=== PATIENT | male | born 1950 | race Caucasian/White ===

== ENCOUNTER 2017-10-26 18:12 | Inpatient (IN) | payer MEDICARE, OTHER ==
[2017-10-26] MEDS ORDERED: NALOXONE 0.4 MG/ML 1 ML VIAL IV PRN (21:22)
[2017-10-26] MEDS ORDERED: MELATONIN 3 MG TABLET PO PRN (21:24)
[2017-10-26] MEDS ORDERED: VANCOMYCIN IV PER PHARMACY 1 EACH MISC MISCELLANE PRN (21:27)
[2017-10-26 21:29] LABS: Glucose,Whole Blood 149 mg/dL (75-99)
[2017-10-26] MEDS ORDERED: VANCOMYCIN 1,500 MG in SODIUM CHLORIDE 0.9% 250 ML IVPB SCH (21:30)
--- NOTE | 2017-10-26 21:52 | XR ---
EXAMINATION TYPE: XR chest 1V portable DATE OF EXAM: 10/26/2017 COMPARISON: 07/02/2016 HISTORY: COPD short of breath TECHNIQUE: Single frontal view of the chest is obtained. FINDINGS: Heart is enlarged. There is no heart failure. Costophrenic angles are clear. IMPRESSION: Cardiomegaly. No heart failure. There is probably no change compared to old exam.
[2017-10-26] MEDS: PANTOPRAZOLE 40 MG/10 ML VIAL IV SCH (23:06)
[2017-10-26] MEDS: PIPERACILLIN-TAZOBACTAM 3.375 GM in DEXTROSE/WATER 1 50ML.BAG IVPB SCH (23:06)
[2017-10-26] MEDS: SODIUM CHLORIDE 0.9% 1,000 ML IV SCH (23:06)
[2017-10-26 23:31] LABS: Anisocytosis Slight; Basophils % (A) 0 %; Eosinophils % (A) 0 %; HCT 32.4 % (39.0-53.0); HGB 9.2 gm/dL (13.0-17.5); Hypochromasia Marked; Lymphocytes # (A) 0.7 k/uL (1.0-4.8); Lymphocytes % (A) 7 %; MCH 27.9 pg (25.0-35.0); MCHC 28.3 g/dL (31.0-37.0); MCV 98.3 fL (80.0-100.0); Macrocytosis Slight; Mean Platelet Volume 8.2; Monocytes # (A) 0.5 k/uL (0-1.0); Monocytes % (A) 5 %; Neutrophils # (A) 8.4 k/uL (1.3-7.7); Neutrophils % (A) 85 %; Platelet Count 255 k/uL (150-450); RBC 3.29 m/uL (4.30-5.90); RDW 18.6 % (11.5-15.5); WBC 9.8 k/uL (3.8-10.6)
[2017-10-26 23:40] LABS: Albumin 4.1 g/dL (3.5-5.0); Calcium 9.6 mg/dL (8.4-10.2); Magnesium 1.9 mg/dL (1.6-2.3); Potassium 4.8 mmol/L (3.5-5.1); Total Bilirubin 0.6 mg/dL (0.2-1.3); Total Protein 7.6 g/dL (6.3-8.2)
[2017-10-26 23:44] LABS: INR 1.1 (<1.2)
[2017-10-26 23:47] LABS: Amorphous Sediment,Urine Rare /hpf; Appearance,Urine Clear (Clear); Bacteria,Urine Rare /hpf; Bilirubin,Urine Negative (Negative); Blood,Urine Trace (Negative); Color,Urine Yellow; Glucose,Urine (UA) Negative (Negative); Hyaline Casts,Urine 3 /lpf (0-2); Ketones,Urine Negative (Negative); Leukocyte Esterase,Urine Small (Negative); Mucus,Urine Rare /hpf; Nitrite,Urine Negative (Negative); PH, Urine 5.5 (5.0-8.0); Protein,Urine 1+ (Negative); RBC,Urine 8 /hpf (0-5); Specific Gravity,Urine 1.013 (1.001-1.035); Squamous Epithelial Cell,Urine <1 /hpf (0-4); Urobilinogen,Urine <2.0 mg/dL (<2.0); WBC,Urine 10 /hpf (0-5)
--- NOTE | 2017-10-26 23:59 | HP ---
HISTORY AND PHYSICAL DATE OF SERVICE: 10/26/2017. CHIEF COMPLAINT: Fever. HISTORY OF PRESENT ILLNESS: This 66-year-old gentleman with a past history of diabetes, hypertension, history of DJD, history of multiple sclerosis, history of stage III multiple decubitus, history of MRSA, depression, [facility], was admitted to [facility] with complaints of fever. The patient was noted to have UTI. The patient also had suspected aspiration pneumonia. Patient was running fever. The patient was subsequently transferred to [facility] for further evaluation and treatment. There is no history any headache, loss conscious, seizures. Detailed history was not taken because of MS and other associated neurological issues. History mostly taken per my discussion with staff at this time, and review of chart. PAST MEDICAL: Diabetes, hypertension, history of DJD, history of hypothyroidism, possible restless leg disease, hypoxia, history of anxiety and depression. MEDICATIONS: 1. Metformin 1000 mg p.o. b.i.d. 2. Benadryl 50 mg. 3. Kenalog. 4. MiraLAX 17 g. 5. Mycostatin. 6. Multivitamins. 7. Synthroid 200 mcg daily. 8. Lactobacillus. 9. DuoNeb q.i.d. and p.r.n. 10.Lantus 30 units subcu at bedtime. 11.Humalog b.i.d. 12.Neurontin 300 mg t.i.d. 13.Lasix 40 mg daily. 14.Lexapro 20 mg at bedtime. 15.Vasotec 5 mg daily. 16.Cranberry 30 mL b.i.d. 17.Symbicort 4.5 two puffs b.i.d. 18.Lioresal 10 mg p.o. t.i.d. 19.Aspirin 81 mg. 20.Vitamin C 500 mg. 21.Augmentin b.i.d. 22.Zyloprim 300 mg p.o. daily. ALLERGIES: Solu-Medrol. FAMILY HISTORY: History of diabetes mellitus in the family. SOCIAL HISTORY: Previous history of smoking. No history of alcohol. REVIEW OF SYSTEMS: Could not be taken because of above mentioned neurological issues. PHYSICAL EXAM: Patient is conscious, oriented x1. Pulse 91, blood pressure 184/70, respiration 17, temperature 101.5, pulse ox 94% on 11 L high-flow nasal cannula. HEENT: Conjunctivae normal. Oral mucosa moist. NECK: No jugular venous distention. No bruits. CARDIOVASCULAR: S1, S2. No S3. LUNGS: Breath sounds diminished at the bases. Bilateral scattered rhonchi and crackles. ABDOMEN: Soft, obese, nontender. No mass palpable. LEGS: Bilateral leg edema. NERVOUS SYSTEM: Higher functions as mentioned. Diffusely weak and wasted and contractures also present. SKIN: Diffuse rash also present. JOINTS: No active deformity. LYMPHATICS: No lymph nodes palpable in the neck, axillae, groin. SKIN: Sacral decubitus stage 2 to 3 also present. LAB: Investigations are pending at this time. ASSESSMENT: 1. Fever with possibly urinary tract infection with sepsis related to indwelling Rothman catheter present on admission. 2. Possible aspiration pneumonia. 3. Possible chronic obstructive pulmonary disease with sepsis. 4. Multiple sclerosis with contractures and gait dysfunction. 5. Decubitus ulcer stage 2 to 3 sacral, present on admission, pressure ulcers. 6. Diabetes type 2. 7. Hypertension. 8. Degenerative joint disease. 9. Hypothyroidism. 10.History of neurogenic bladder. 11.History of MRSA. 12.History of bowel resection. 13.History of full colostomy. 14.History of anxiety, depression. RECOMMENDATIONS AND DISCUSSION: This 66-year-old gentleman who presented with multiple complex medical issues, we will monitor the patient closely, continue the current management. Initiate broad- spectrum IV antibiotics. Initiate Zosyn and Vanco. Obtain cultures. Infectious disease evaluation. Bronchodilators. Home medications. DVT prophylaxis. Wound care. Prognosis guarded because of multiple complex medical issues. Discussed with staff. See orders for details. MMODL / IJN: [id number] / MTDD
[2017-10-27 05:00] VITALS: BMI 38.5
[2017-10-27] MEDS: FORMOTEROL FUMARATE 20 MCG/2 ML NEBU INHALATION SCH ×2 (07:08→20:27)
[2017-10-27] MEDS: BUDESONIDE 1 MG/2 ML NEBU INHALATION SCH ×2 (07:08→20:26)
[2017-10-27] MEDS: IPRATROPIUM-ALBUTEROL 3 ML NEB INHALATION SCH ×4 (07:16→20:27)
[2017-10-27 07:42] LABS: Glucose,Whole Blood 160 mg/dL (75-99)
[2017-10-27] MEDS ORDERED: IPRATROPIUM 0.5 MG/2.5 ML NEBU INHALATION SCH (08:00)
[2017-10-27] MEDS: HEPARIN SODIUM,PORCINE 5,000 UNIT/ML 1 ML VIAL SQ SCH ×2 (08:17→20:03)
[2017-10-27] MEDS: PIPERACILLIN-TAZOBACTAM 3.375 GM in DEXTROSE/WATER 1 50ML.BAG IVPB SCH ×2 (08:17→16:20)
[2017-10-27] MEDS: PANTOPRAZOLE 40 MG/10 ML VIAL IV SCH (08:17)
[2017-10-27 08:33] LABS: Anisocytosis Slight; Basophils # (A) 0.1 k/uL (0-0.2); Basophils % (A) 0 %; Eosinophils % (A) 0 %; HCT 33.8 % (39.0-53.0); HGB 9.9 gm/dL (13.0-17.5); Hypochromasia Marked; Lymphocytes # (A) 0.9 k/uL (1.0-4.8); Lymphocytes % (A) 6 %; MCH 28.4 pg (25.0-35.0); MCHC 29.1 g/dL (31.0-37.0); MCV 97.4 fL (80.0-100.0); Macrocytosis Slight; Mean Platelet Volume 8.1; Monocytes # (A) 0.6 k/uL (0-1.0); Monocytes % (A) 4 %; Neutrophils # (A) 12.9 k/uL (1.3-7.7); Neutrophils % (A) 87 %; Platelet Count 312 k/uL (150-450); Poikilocytosis Slight; RBC 3.47 m/uL (4.30-5.90); RDW 18.3 % (11.5-15.5); WBC 14.8 k/uL (3.8-10.6)
--- NOTE | 2017-10-27 09:13 | P.CONS ---
History of Present Illness - Reason for Consult Consult date: 10/27/17 - History of Present Illness This is a 66-year-old male who resides at [facility], history of MS with chronic Ivory catheter and colostomy. On October 25, patient was found with vomitus all over him and pulse ox was in the 70s at the F. Patient does have chronic hypoxic respiratory failure on O2 at 3 L nasal cannula. Patient was then taken to [facility] where he was evaluated and found to have temperature of 102 with leukocytosis of 15. Patient was started on Zosyn and then changed to cefepime, clindamycin and vancomycin. Chest x-ray initially showed clear of consolidation but repeat on October 26 showed suspicious small effusion and pulmonary venous congestion. Urinalysis was cloudy, blood 3+, protein 2+, nitrate positive, leukoesterase 2+ , WBC 5200, RBCs 20-30 and bacteria 4+. BUN was 58 and creatinine 2.5 with baseline creatinine of 1.2-1.5. Abdominal x-ray was normal and showed possible left renal calculi. Troponins were 0.045, 0.055 and 0.071. Patient was diagnosed with aspiration pneumonia, UTI, acute kidney injury and possible non- ST elevated myocardial infarction. Patient was then transferred to [facility]. He has had a temperature maximum 102.3 white count is improved at 9.8 as well as renal function has improved. Repeat chest x-ray shows cardiomegaly. No heart failure. No change from previous. Patient is currently on Zosyn and vancomycin. Blood culture urine culture are status received. Patient also presented with unstageable pressure injury to the bilateral buttocks. Wound cultures have been obtained. Noted the patient has not been tested for influenza. Patient has difficulty communicating due to MS and is a poor historian. He currently denies any shortness of breath but he is on high flow nasal cannula and 11 L pulse oxing 93%. Review of Systems ROS unobtainable: due to mental status All systems: negative Constitutional: Reports chills, Reports fever Eyes: denies blurred vision, denies pain Ears, nose, mouth and throat: Denies headache, Denies sore throat Cardiovascular: Denies chest pain, Denies decreased exercise tolerance, Denies dyspnea on exertion, Denies shortness of breath Respiratory: Denies cough Gastrointestinal: Denies abdominal pain, Denies diarrhea, Denies nausea, Denies vomiting Musculoskeletal: Denies myalgias Integumentary: Denies pruritus, Denies rash Neurological: Denies numbness, Denies weakness Psychiatric: Denies anxiety, Denies depression Endocrine: Denies fatigue, Denies weight change Past Medical History Past Medical History: Diabetes Mellitus, Hypertension, Musculoskeletal Disorder , Osteoarthritis (OA), Thyroid Disorder Additional Past Medical History / Comment(s): ms, healing stage 3 to sacrum, neurogenic bladder/chronic ivory, neuropathy History of Any Multi-Drug Resistant Organisms: MRSA Year Discovered:: unknown MDRO Source:: sacral wound Past Surgical History: Bowel Resection, Orthopedic Surgery Additional Past Surgical History / Comment(s): knee surgery 1966, colostomy Past Anesthesia/Blood Transfusion Reactions: No Reported Reaction Past Psychological History: Anxiety, Depression Smoking Status: Former smoker Past Alcohol Use History: Rare Past Drug Use History: None Reported - Past Family History Mother Family Medical History: Cancer Additional Family Medical History / Comment(s): female cancer Father Family Medical History: Diabetes Mellitus Medications and Allergies Home Medications Medication Instructions Recorded Confirmed Type Baclofen [Lioresal] 20 mg PO TID@0500,1300,2100 08/24/14 10/26/17 History Escitalopram [Lexapro] 20 mg PO HS@199908/24/14 10/26/17 History Gabapentin [Neurontin] 600 mg PO TID@0500,1300,2100 08/24/14 10/26/17 History Levothyroxine Sodium [Synthroid] 200 mcg PO DAILY@0500 08/24/14 10/26/17 History metFORMIN HCL 1,000 mg PO BID@0900,2100 08/24/14 10/26/17 History INSULIN LISPRO (HumaLOG) [humaLOG] 20 units SQ BID@1200,1700 06/24/16 10/26/17 History Acetaminophen [Tylenol] 650 mg PO Q4H PRN 10/26/17 10/26/17 History Albuterol Nebulized [Ventolin 2.5 mg INHALATION RT-Q4H PRN 10/26/17 10/26/17 History Nebulized] Bumetanide [Bumex] 1 mg PO BID@0500,1200 10/26/17 10/26/17 History Cranberry-Vitamin C-Inulin 30 ml PO BID@0700,1700 10/26/17 10/26/17 History Escitalopram [Lexapro] 10 mg PO HS@2000 10/26/17 10/26/17 History Furosemide [Lasix] 80 mg PO BID@0500,1300 10/26/17 10/26/17 History Ibuprofen 600 mg PO TID 10/26/17 10/26/17 History Insulin Glargine [Lantus] 30 unit SQ BID@0900,2100 10/26/17 10/26/17 History Levothyroxine Sodium [Synthroid] 50 mcg PO DAILY@0500 10/26/17 10/26/17 History Piperacillin-Tazobactam [Zosyn] 3.375 gm IVPB QID 10/26/17 10/26/17 History Polyethylene Glycol 3350 [Miralax] 17 gm PO DAILY PRN 10/26/17 10/26/17 History Potassium Chloride ER [K-Dur 20] 20 meq PO BID@1200,2100 10/26/17 10/26/17 History Allergies Allergy/AdvReac Type Severity Reaction Status Date / Time methylprednisolone sodium Allergy Rash/Hives Verified 07/02/16 08:17 succinate [From Solu-Medrol] Physical Exam Vitals: Vital Signs Temp Pulse Pulse Resp BP BP Pulse Ox 10/27/17 07:29 96 10/27/17 07:28 93 L 10/27/17 07:23 100 10/27/17 07:13 100 10/27/17 07:00 102.3 F H 104 H 18 191/84 200/91 92 L 10/26/17 23:00 99.9 F H 17 10/26/17 20:51 101.5 F H 91 17 184/73 95 Intake and Output 10/26/17 10/27/17 10/27/17 22:59 06:59 14:59 Intake Total 0 210 Balance 0 210 Intake: Intake, IV Titration 210 Amount Piperacillin-Tazobactam 3 50 .375 gm In Dextrose/Water 1 50ml.bag @ 12.5 mls/hr IVPB Q8HR [facility]T Rx#: [id number] Sodium Chloride 0.9% 1, 160 000 ml @ 50 mls/hr IV . Q20H [facility]T Rx#:[id number] Oral 0 0 Other: Voiding Method Indwelling Catheter Weight 122 kg 122 kg Gen: This is a morbidly obese 66-year-old male. He is sitting up in bed and appears to be comfortable. He does not appear to be in acute respiratory distress. HEENT: Head is atraumatic, normocephalic. Pupils equal, round. Sclerae is anicteric. Patient is edentulous. NECK: Thick and short. No JVD. No lymphadenopathy. No thyromegaly. LUNGS: Diminished to the bilateral bases. No wheezes or rhonchi. No intercostal retractions. HEART: Irregular rate and rhythm. No murmur. ABDOMEN: Soft. Bowel sounds are present. No masses. No tenderness. Colostomy to the left lower quadrant with beefy center. Formed stool and gas present in colostomy bag. SKIN: Patient has redness to the bilateral forearms to his elbows with no open weeping or wounds. There is redness from the bilateral buttocks including the sacrum with open skin tears. EXTREMITIES: 1+ pedal edema. No calf tenderness. Dorsalis pedis palpable bilaterally. NEUROLOGICAL: Patient is awake, alert and oriented x2 and poor historian. Extreme weakness to the bilateral upper and lower extremities. Results Results: Laboratory Results WBC 14.8 k/uL (3.8-10.6) H 10/27/17 07:58 RBC 3.47 m/uL (4.30-5.90) L 10/27/17 07:58 Hgb 9.9 gm/dL (13.0-17.5) L 10/27/17 07:58 Hct 33.8 % (39.0-53.0) L 10/27/17 07:58 MCV 97.4 fL (80.0-100.0) 10/27/17 07:58 MCH 28.4 pg (25.0-35.0) 10/27/17 07:58 MCHC 29.1 g/dL (31.0-37.0) L 10/27/17 07:58 RDW 18.3 % (11.5-15.5) H 10/27/17 07:58 Plt Count 312 k/uL (150-450) 10/27/17 07:58 Neutrophils % 87 % 10/27/17 07:58 Lymphocytes % 6 % 10/27/17 07:58 Monocytes % 4 % 10/27/17 07:58 Eosinophils % 0 % 10/27/17 07:58 Basophils % 0 % 10/27/17 07:58 Neutrophils # 12.9 k/uL (1.3-7.7) H 10/27/17 07:58 Lymphocytes # 0.9 k/uL (1.0-4.8) L 10/27/17 07:58 Monocytes # 0.6 k/uL (0-1.0) 10/27/17 07:58 Eosinophils # 0.0 k/uL (0-0.7) 10/27/17 07:58 Basophils # 0.1 k/uL (0-0.2) 10/27/17 07:58 Hypochromasia Marked 10/27/17 07:58 Poikilocytosis Slight 10/27/17 07:58 Anisocytosis Slight 10/27/17 07:58 Macrocytosis Slight 10/27/17 07:58 PT 11.0 sec (9.0-12.0) 10/26/17 23:10 INR 1.1 (<1.2) 10/26/17 23:10 Sodium 154 mmol/L (137-145) H 10/26/17 23:10 Potassium 4.8 mmol/L (3.5-5.1) 10/26/17 23:10 Chloride 113 mmol/L (98-107) H 10/26/17 23:10 Carbon Dioxide 27 mmol/L (22-30) 10/26/17 23:10 Anion Gap 14 mmol/L 10/26/17 23:10 BUN 55 mg/dL (9-20) H 10/26/17 23:10 Creatinine 1.60 mg/dL (0.66-1.25) H 10/26/17 23:10 Est GFR (MDRD) Af Amer 52 (>60 ml/min/1.73 sqM) 10/26/17 23:10 Est GFR (MDRD) Non-Af 43 (>60 ml/min/1.73 sqM) 10/26/17 23:10 Glucose 152 mg/dL (74-99) H 10/26/17 23:10 POC Glucose (mg/dL) 160 mg/dL (75-99) H 10/27/17 07:34 POC Glu Licensed Insurance Agent ID Pallavi Jiménez 10/27/17 07:34 Calcium 9.6 mg/dL (8.4-10.2) 10/26/17 23:10 Magnesium 1.9 mg/dL (1.6-2.3) 10/26/17 23:10 Total Bilirubin 0.6 mg/dL (0.2-1.3) 10/26/17 23:10 AST 44 U/L (17-59) 10/26/17 23:10 ALT 21 U/L (21-72) 10/26/17 23:10 Alkaline Phosphatase 72 U/L (38-126) 10/26/17 23:10 Total Protein 7.6 g/dL (6.3-8.2) 10/26/17 23:10 Albumin 4.1 g/dL (3.5-5.0) 10/26/17 23:10 Urine Color Yellow 10/26/17 23:20 Urine Appearance Clear (Clear) 10/26/17 23:20 Urine pH 5.5 (5.0-8.0) 10/26/17 23:20 Ur Specific [place] 1.013 (1.001-1.035) 10/26/17 23:20 Urine Protein 1+ (Negative) H 10/26/17 23:20 Urine Glucose (UA) Negative (Negative) 10/26/17 23:20 Urine Ketones Negative (Negative) 10/26/17 23:20 Urine Blood Trace (Negative) H 10/26/17 23:20 Urine Nitrite Negative (Negative) 10/26/17 23:20 Urine Bilirubin Negative (Negative) 10/26/17 23:20 Urine Urobilinogen <2.0 mg/dL (<2.0) 10/26/17 23:20 Ur Leukocyte Esterase Small (Negative) H 10/26/17 23:20 Urine RBC 8 /hpf (0-5) H 10/26/17 23:20 Urine WBC 10 /hpf (0-5) H 10/26/17 23:20 Urine WBC Clumps Rare /hpf (None) H 10/26/17 23:20 Ur Squamous Epith Cells <1 /hpf (0-4) 10/26/17 23:20 Amorphous Sediment Rare /hpf (None) H 10/26/17 23:20 Urine Bacteria Rare /hpf (None) H 02/12/18 23:20 Hyaline Casts 3 /lpf (0-2) H 10/26/17 23:20 Urine Mucus Rare /hpf (None) H 10/26/17 23:20 CBC & Chem 7: 10/28/17 08:28 10/28/17 08:28 Labs: Abnormal Lab Results - Last 24 Hours (Table) 10/26/17 10/26/17 10/26/17 Range/Units 21:26 23:10 23:10 WBC (3.8-10.6) k/uL RBC 3.29 L (4.30-5.90) m/uL Hgb 9.2 L (13.0-17.5) gm/dL Hct 32.4 L (39.0-53.0) % MCHC 28.3 L (31.0-37.0) g/dL RDW 18.6 H (11.5-15.5) % Neutrophils # 8.4 H (1.3-7.7) k/uL Lymphocytes # 0.7 L (1.0-4.8) k/uL Sodium 154 H (137-145) mmol/L Chloride 113 H (98-107) mmol/L BUN 55 H (9-20) mg/dL Creatinine 1.60 H (0.66-1.25) mg/dL Glucose 152 H (74-99) mg/dL POC Glucose (mg/dL) 149 H (75-99) mg/dL Urine Protein (Negative) Urine Blood (Negative) Ur Leukocyte Esterase (Negative) Urine RBC (0-5) /hpf Urine WBC (0-5) /hpf Urine WBC Clumps (None) /hpf Amorphous Sediment (None) /hpf Urine Bacteria (None) /hpf Hyaline Casts (0-2) /lpf Urine Mucus (None) /hpf 10/26/17 10/27/17 10/27/17 Range/Units 23:20 07:34 07:58 WBC 14.8 H (3.8-10.6) k/uL RBC 3.47 L (4.30-5.90) m/uL Hgb 9.9 L (13.0-17.5) gm/dL Hct 33.8 L (39.0-53.0) % MCHC 29.1 L (31.0-37.0) g/dL RDW 18.3 H (11.5-15.5) % Neutrophils # 12.9 H (1.3-7.7) k/uL Lymphocytes # 0.9 L (1.0-4.8) k/uL Sodium (137-145) mmol/L Chloride (98-107) mmol/L BUN (9-20) mg/dL Creatinine (0.66-1.25) mg/dL Glucose (74-99) mg/dL POC Glucose (mg/dL) 160 H (75-99) mg/dL Urine Protein 1+ H (Negative) Urine Blood Trace H (Negative) Ur Leukocyte Esterase Small H (Negative) Urine RBC 8 H (0-5) /hpf Urine WBC 10 H (0-5) /hpf Urine WBC Clumps Rare H (None) /hpf Amorphous Sediment Rare H (None) /hpf Urine Bacteria Rare H (None) /hpf Hyaline Casts 3 H (0-2) /lpf Urine Mucus Rare H (None) /hpf Assessment and Plan Plan: This is a 66-year-old male patient presents to hospital with signs of sepsis most likely secondary to catheter associated urinary tract infection. Influenza testing has been requested. Patient does not have previous urine cultures here. We will ask for urine culture from [facility] to be obtained. Patient does have a blood culture and urine culture that is in process at our facility. Patient is currently on Zosyn and vancomycin which will be altered to meropenem and vancomycin. Local wound care will be addressed for the bilateral buttocks unstageable decubitus ulcers. Continue supportive care and treatment of acute kidney injury. Further recommendations as patient progresses. The above dictated assessment and findings were discussed with Dr. Bermudez. The impression and plan of care have been directed as dictated. Brit Huizar nurse practitioner acting as scribe for Dr. Bermudez.
[2017-10-27] MEDS ORDERED: ACETAMINOPHEN TAB 325 MG TAB PO PRN (09:50)
[2017-10-27] MEDS ORDERED: IPRATROPIUM-ALBUTEROL 3 ML NEB INHALATION PRN (09:54)
[2017-10-27 10:34] LABS: Calcium 10.1 mg/dL (8.4-10.2); Potassium 3.9 mmol/L (3.5-5.1)
[2017-10-27 10:40] LABS: Vancomycin,Random 10.5 ug/mL
[2017-10-27 11:18] LABS: Glucose,Whole Blood 160 mg/dL (75-99)
[2017-10-27] MEDS ORDERED: VANCOMYCIN 2,250 MG in SODIUM CHLORIDE 0.9% 500 ML IVPB SCH (12:00)
[2017-10-27] MEDS: INSULIN DETEMIR 100 UNIT/ML 10 ML VIAL SQ SCH (12:29)
--- NOTE | 2017-10-27 13:02 | P.CNPUL ---
History of Present Illness Consult date: 10/27/17 Requesting physician: Jose Flores Reason for consult: hypoxemia, abnormal CXR/CT Chief complaint: Fever, hypoxic respiratory failure, abnormal chest x-ray History of present illness: Master is a 66-year-old white male patient with a past medical history of multiple sclerosis, diabetes mellitus, hypertension, healing stage III sacrum ulcer, neurogenic bladder with chronic indwelling catheter, hypothyroidism, osteoarthritis, who resides at the [facility], was brought to the [facility] on 10/26/2017 with complaints of fever, suspected aspiration pneumonia, and hypoxemia a pulse ox in the 70s at the [facility]. Patient normally wears oxygen at 3 L per nasal cannula. At the [facility] patient was febrile with a temperature of 10 2F and evidence of leukocytosis, with a WBC of 14.8. Patient is a very poor historian, most of the history is obtained from the chart. He can only provide one or 2 word answers. His lab work showed hypernatremia, with serum sodium of 158, potassium is 3.9, chloride is 116, BUN is 52, and creatinine is 1.60. Urinalysis showed 1+ protein, trace blood, small amount of leukocyte esterase, wbc clumps, mucus and bacteria. Influenza screen was negative. Chest x-ray from 10/26/2017 showed cardiomegaly, no heart failure. Blood, urine, and aerobic wound culture of the sacral wound were ordered. Patient was started on vancomycin, Zosyn, nebulized treatments and was admitted for further management. During our evaluation, patient awake, alert, able to follow simple command, and give 1 or 2 word answers. He denies any acute distress, no signs of acute respiratory difficulty. He has a very weak cough. FiO2 is currently at 11 L per high flow nasal cannula, with a pulse ox at 92%. Is having intermittent high fevers, his T-max last 24 hours is 102.3F. Review of Systems All systems: negative Constitutional: Denies chills, Denies fever Eyes: denies blurred vision, denies pain Ears, nose, mouth and throat: Denies headache, Denies sore throat Cardiovascular: Denies chest pain, Denies shortness of breath Respiratory: Denies cough Gastrointestinal: Denies abdominal pain, Denies diarrhea, Denies nausea, Denies vomiting Musculoskeletal: Denies myalgias Integumentary: Denies pruritus, Denies rash Neurological: Denies numbness, Denies weakness Psychiatric: Denies anxiety, Denies depression Endocrine: Denies fatigue, Denies weight change Past Medical History Past Medical History: Diabetes Mellitus, Hypertension, Musculoskeletal Disorder , Osteoarthritis (OA), Thyroid Disorder Additional Past Medical History / Comment(s): ms, healing stage 3 to sacrum, neurogenic bladder/chronic ivory, neuropathy History of Any Multi-Drug Resistant Organisms: MRSA Date of last positivie culture/infection: unknown MDRO Source:: sacral wound Past Surgical History: Bowel Resection, Orthopedic Surgery Additional Past Surgical History / Comment(s): knee surgery 1966, colostomy Past Anesthesia/Blood Transfusion Reactions: No Reported Reaction Past Psychological History: Anxiety, Depression Smoking Status: Former smoker Past Alcohol Use History: Rare Past Drug Use History: None Reported - Past Family History Mother Family Medical History: Cancer Additional Family Medical History / Comment(s): female cancer Father Family Medical History: Diabetes Mellitus Medications and Allergies Home Medications Medication Instructions Recorded Confirmed Type Baclofen [Lioresal] 20 mg PO TID@0500,1300,2100 08/24/14 10/26/17 History Escitalopram [Lexapro] 20 mg PO HS@199908/24/14 10/26/17 History Gabapentin [Neurontin] 600 mg PO TID@0500,1300,2100 08/24/14 10/26/17 History Levothyroxine Sodium [Synthroid] 200 mcg PO DAILY@0500 08/24/14 10/26/17 History metFORMIN HCL 1,000 mg PO BID@0900,2100 08/24/14 10/26/17 History INSULIN LISPRO (HumaLOG) [humaLOG] 20 units SQ BID@1200,1700 06/24/16 10/26/17 History Acetaminophen [Tylenol] 650 mg PO Q4H PRN 10/26/17 10/26/17 History Albuterol Nebulized [Ventolin 2.5 mg INHALATION RT-Q4H PRN 10/26/17 10/26/17 History Nebulized] Bumetanide [Bumex] 1 mg PO BID@0500,1200 10/26/17 10/26/17 History Cranberry-Vitamin C-Inulin 30 ml PO BID@0700,1700 10/26/17 10/26/17 History Escitalopram [Lexapro] 10 mg PO HS@199910/26/17 10/26/17 History Furosemide [Lasix] 80 mg PO BID@0500,1300 10/26/17 10/26/17 History Ibuprofen 600 mg PO TID 10/26/17 10/26/17 History Insulin Glargine [Lantus] 30 unit SQ BID@0900,2100 10/26/17 10/26/17 History Levothyroxine Sodium [Synthroid] 50 mcg PO DAILY@0500 10/26/17 10/26/17 History Piperacillin-Tazobactam [Zosyn] 3.375 gm IVPB QID 10/26/17 10/26/17 History Polyethylene Glycol 3350 [Miralax] 17 gm PO DAILY PRN 10/26/17 10/26/17 History Potassium Chloride ER [K-Dur 20] 20 meq PO BID@1200,2100 10/26/17 10/26/17 History Allergies Allergy/AdvReac Type Severity Reaction Status Date / Time methylprednisolone sodium Allergy Rash/Hives Verified 07/02/16 08:17 succinate [From Solu-Medrol] Physical Exam Vitals: Vital Signs Temp Pulse Pulse Resp BP BP Pulse Ox 10/27/17 11:40 96 10/27/17 11:31 96 10/27/17 08:00 104 H 18 10/27/17 07:29 96 10/27/17 07:28 93 L 10/27/17 07:23 100 10/27/17 07:13 100 10/27/17 07:00 102.3 F H 104 H 18 191/84 200/91 92 L 10/26/17 23:00 99.9 F H 17 10/26/17 20:51 101.5 F H 91 17 184/73 95 Intake and Output 10/26/17 10/27/17 10/27/17 22:59 06:59 14:59 Intake Total 0 210 Balance 0 210 Intake: Intake, IV Titration 210 Amount Piperacillin-Tazobactam 3 50 .375 gm In Dextrose/Water 1 50ml.bag @ 12.5 mls/hr IVPB Q8HR [facility] Rx#: [id number] Sodium Chloride 0.9% 1, 160 000 ml @ 50 mls/hr IV . Q20H [facility] Rx#:[id number] Oral 0 0 Other: Voiding Method Indwelling Catheter Indwelling Catheter Weight 122 kg 122 kg GENERAL EXAM: Alert, 66-year-old white male, comfortable in no apparent distress. Patient to follow simple commands, give 1 or 2 word answers, but is not able to give any extensive verbal answers. Currently on 11 L per high flow nasal cannula HEAD: Normocephalic/atraumatic. EYES: Normal reaction of pupils, equal size. Conjunctiva pink, sclera white. NOSE: Clear with pink turbinates. THROAT: No erythema or exudates. NECK: No masses, no JVD, no thyroid enlargement, no adenopathy. CHEST: No chest wall deformity. Symmetrical expansion. LUNGS: Diminished air entry bilaterally, no rhonchi or wheezes noted. He has a very weak nonproductive cough CVS: Regular rate and rhythm, normal S1 and S2, no gallops, no murmurs, no rubs ABDOMEN: Soft, nontender. No hepatosplenomegaly, normal bowel sounds, no guarding or rigidity. EXTREMITIES: No clubbing, no edema, no cyanosis, 2+ pulses and upper and lower extremities. MUSCULOSKELETAL: Muscle strength and tone normal. SPINE: No scoliosis or deformity SKIN: No rashes CENTRAL NERVOUS SYSTEM: Alert and oriented -3. No focal deficits, tone is normal in all 4 extremities. PSYCHIATRIC: Alert and oriented -3. Appropriate affect. Intact judgment and insight. Results - Laboratory Findings CBC and BMP: 10/27/17 07:58 10/27/17 07:58 PT/INR, D-dimer PT 11.0 sec (9.0-12.0) 10/26/17 23:10 INR 1.1 (<1.2) 10/26/17 23:10 Abnormal lab findings: Abnormal Labs 10/26/17 10/26/17 10/26/17 21:26 23:10 23:10 WBC RBC 3.29 L Hgb 9.2 L Hct 32.4 L MCHC 28.3 L RDW 18.6 H Neutrophils # 8.4 H Lymphocytes # 0.7 L Sodium 154 H Chloride 113 H BUN 55 H Creatinine 1.60 H Glucose 152 H POC Glucose (mg/dL) 149 H Troponin I Urine Protein Urine Blood Ur Leukocyte Esterase Urine RBC Urine WBC Urine WBC Clumps Amorphous Sediment Urine Bacteria Hyaline Casts Urine Mucus 10/26/17 10/27/1718 23:20 07:34 07:58 WBC 14.8 H RBC 3.47 L Hgb 9.9 L Hct 33.8 L MCHC 29.1 L RDW 18.3 H Neutrophils # 12.9 H Lymphocytes # 0.9 L Sodium Chloride BUN Creatinine Glucose POC Glucose (mg/dL) 160 H Troponin I Urine Protein 1+ H Urine Blood Trace H Ur Leukocyte Esterase Small H Urine RBC 8 H Urine WBC 10 H Urine WBC Clumps Rare H Amorphous Sediment Rare H Urine Bacteria Rare H Hyaline Casts 3 H Urine Mucus Rare H 10/27/17 10/27/17 10/27/17 07:58 07:58 11:13 WBC RBC Hgb Hct MCHC RDW Neutrophils # Lymphocytes # Sodium 158 H Chloride 116 H BUN 52 H Creatinine 1.60 H Glucose 167 H POC Glucose (mg/dL) 160 H Troponin I 0.137 H* Urine Protein Urine Blood Ur Leukocyte Esterase Urine RBC Urine WBC Urine WBC Clumps Amorphous Sediment Urine Bacteria Hyaline Casts Urine Mucus - Diagnostic Findings Chest x-ray: report reviewed Assessment and Plan Plan: Assessment: #1. Acute sepsis, secondary to acute urinary tract infection. Urinalysis was positive for leukocyte esterase, urine bacteria, mucus, urine wbc clumps. Chest x-ray from 10/26/2017 showed cardiomegaly, no heart failure, and no clear-cut evidence of pneumonia #2. Leukocytosis, fever, acute kidney injury secondary to the above, #3. Acute on chronic hypoxic respiratory failure of unclear etiology, patient' s O2 sat was in the 70s that [facility]. Patient has reportedly vomited at the [facility], was suspected to have aspiration pneumonia, however the chest x-ray from 2017 did not show any clear-cut evidence of pneumonia. Patient does have features of hypoventilation syndrome, obstructive sleep apnea, obesity #4. Acute kidney injury secondary to sepsis related to urinary tract infection #5. Hypernatremia, related to a water deficit, possibly related to poor oral intake #6. History of multiple sclerosis #7. Sacral decubitus ulcer, stage III, patient has a diversion colostomy #8. Poor functional performance, patient is a resident of [facility] #9. Diabetes mellitus #10. Neurogenic bladder with chronic indwelling catheter #11. History of MRSA in the sacral wound Plan: Patient's chest x-ray was reviewed, and did not show any evidence of pneumonia. Patient is still having intermittent episodes of fever, will await final results of the blood, urine and sacral wound cultures. Currently on Zosyn and vancomycin, ID service is following. Continue with nebulized treatments, continue with Pulmicort and Perforomist. Speech therapy evaluation was ordered by the attending physician. Patient remains nothing by mouth. Patient is probably a high risk for aspiration. Obtain aspiration precautions, head of the bed up 30 at all times. Further recommendations to follow depending on patient's clinical course I performed a history & physical examination of the patient and discussed their management with my nurse practitioner, Corine Mosquera. I reviewed the nurse practitioner's note and agree with the documented findings and plan of care. Lung sounds are diminished. The findings and the impression was discussed with the patient. I attest to the documentation by the nurse practitioner. Time with Patient: Greater than 30
[2017-10-27] MEDS: GABAPENTIN 300 MG CAP PO SCH ×2 (13:34→20:03)
[2017-10-27] MEDS: INSULIN ASPART 100 UNIT/ML 1 ML 10 ML VIAL SQ SCH ×3 (13:40→21:32)
[2017-10-27 17:06] LABS: Glucose,Whole Blood 162 mg/dL (75-99)
[2017-10-27 17:24] LABS: Hemoglobin A1C 6.1 % (4.0-6.0)
[2017-10-27] MEDS: SODIUM CHLORIDE 0.9% 1,000 ML IV SCH (18:05)
[2017-10-27] MEDS ORDERED: ESCITALOPRAM 20 MG TAB PO SCH (20:00)
[2017-10-27] MEDS: ESCITALOPRAM 10 MG TAB PO SCH (20:02)
[2017-10-27] MEDS: ACETAMINOPHEN IV (For NPO) 1,000 MG in EMPTY BAG 1 BAG IVPB PRN (20:02)
[2017-10-27] MEDS ORDERED: INSULIN DETEMIR 100 UNIT/ML 10 ML VIAL SQ SCH (21:00)
--- NOTE | 2017-10-27 22:40 | P.CON ---
Consult Note - . Consult date: 10/27/17 Assessment/Plan:: This is a 66-year-old male who resides at [facility], history of MS with chronic Rothman catheter and colostomy. On October 25, patient was found with vomitus all over him and pulse ox was in the 70s at the [facility]. Patient does have chronic hypoxic respiratory failure on O2 at 3 L nasal cannula. Patient was then taken to [facility] where he was evaluated and found to have temperature of 102 with leukocytosis of 15. Patient was started on Zosyn and then changed to cefepime, clindamycin and vancomycin. Chest x-ray initially showed clear of consolidation but repeat on October 26 showed suspicious small effusion and pulmonary venous congestion. Urinalysis was cloudy, blood 3+, protein 2+, nitrate positive, leukoesterase 2+ , WBC 5200, RBCs 20-30 and bacteria 4+. BUN was 58 and creatinine 2.5 with baseline creatinine of 1.2-1.5. Abdominal x-ray was normal and showed possible left renal calculi. Troponins were 0.045, 0.055 and 0.071. Patient was diagnosed with aspiration pneumonia, UTI, acute kidney injury and possible non- ST elevated myocardial infarction. Patient was then transferred to [facility]. He has had a temperature maximum 102.3 white count is improved at 9.8 as well as renal function has improved. Repeat chest x-ray shows cardiomegaly. No heart failure. No change from previous. Patient is currently on Zosyn and vancomycin. Blood culture urine culture are status received. Patient also presented with unstageable pressure injury to the bilateral buttocks. Wound cultures have been obtained. Noted the patient has not been tested for influenza. Patient has difficulty communicating due to MS and is a poor historian. He currently denies any shortness of breath but he is on high flow nasal cannula and 11 L pulse oximetry 93%. Please see the consult note is dictated by nurse practitioner Brit Gaye. 66-year-old male is a very poor historian. As noted he is on 11 L of nasal cannula and has somewhat of a poor mentation. Stated influenza has come back as negative. It is likely the patient has aspiration pneumonia and with his care and [facility]CF alter Zosyn to meropenem with concerns to more resistant pathogens and vancomycin also continues for now. Continue supportive care and respiratory treatments. Zinc will be utilized to the pressure ulcerations of the buttocks noted at admission and please see the nursing documentation. I agree with evaluation, assessment and plan his defibrillator nurse practitioner Mrs. Brit Huizar.
[2017-10-28 00:24] LABS: Glucose,Whole Blood 141 mg/dL (75-99)
[2017-10-28] MEDS: MEROPENEM 1 GM in SODIUM CHLORIDE 0.9% 100 ML IVPB SCH ×4 (00:36→23:18)
[2017-10-28 02:20] LABS: Anisocytosis Slight; Basophils # (A) 0.1 k/uL (0-0.2); Basophils % (A) 1 %; Eosinophils # (A) 0.1 k/uL (0-0.7); Eosinophils % (A) 1 %; HCT 33.1 % (39.0-53.0); HGB 9.5 gm/dL (13.0-17.5); Hypochromasia Marked; Lymphocytes # (A) 1.1 k/uL (1.0-4.8); Lymphocytes % (A) 7 %; MCH 28.3 pg (25.0-35.0); MCHC 28.8 g/dL (31.0-37.0); MCV 98.1 fL (80.0-100.0); Macrocytosis Slight; Mean Platelet Volume 8.2; Monocytes # (A) 0.8 k/uL (0-1.0); Monocytes % (A) 5 %; Neutrophils # (A) 13.6 k/uL (1.3-7.7); Neutrophils % (A) 86 %; Platelet Count 270 k/uL (150-450); Poikilocytosis Slight; RBC 3.38 m/uL (4.30-5.90); RDW 18.5 % (11.5-15.5); WBC 15.9 k/uL (3.8-10.6)
[2017-10-28] MEDS: ACETAMINOPHEN IV (For NPO) 1,000 MG in EMPTY BAG 1 BAG IVPB PRN ×2 (02:57→09:53)
[2017-10-28] MEDS ORDERED: LEVOTHYROXINE 50 MCG TAB PO SCH (05:00)
[2017-10-28] MEDS ORDERED: KETOROLAC 30 MG/ML 1 ML VIAL IVP ONE ×2 (05:00→22:56)
[2017-10-28] MEDS: GABAPENTIN 300 MG CAP PO SCH ×3 (05:02→21:57)
[2017-10-28] MEDS: LEVOTHYROXINE 125 MCG TAB PO SCH (05:02)
[2017-10-28] MEDS: VANCOMYCIN 2,250 MG in SODIUM CHLORIDE 0.9% 500 ML IVPB SCH (06:29)
[2017-10-28 08:13] LABS: Glucose,Whole Blood 145 mg/dL (75-99)
[2017-10-28] MEDS: IPRATROPIUM-ALBUTEROL 3 ML NEB INHALATION SCH ×4 (08:18→20:54)
[2017-10-28] MEDS: FORMOTEROL FUMARATE 20 MCG/2 ML NEBU INHALATION SCH ×2 (08:18→20:53)
[2017-10-28] MEDS: BUDESONIDE 1 MG/2 ML NEBU INHALATION SCH ×2 (08:18→20:53)
[2017-10-28] MEDS: INSULIN ASPART 100 UNIT/ML 1 ML 10 ML VIAL SQ SCH ×4 (08:21→22:49)
[2017-10-28] MEDS: HEPARIN SODIUM,PORCINE 5,000 UNIT/ML 1 ML VIAL SQ SCH ×2 (08:42→21:57)
[2017-10-28] MEDS: PANTOPRAZOLE 40 MG/10 ML VIAL IV SCH (08:42)
[2017-10-28] MEDS: INSULIN DETEMIR 100 UNIT/ML 10 ML VIAL SQ SCH (08:42)
[2017-10-28 09:40] LABS: Anisocytosis Slight; Basophils # (A) 0.1 k/uL (0-0.2); Basophils % (A) 1 %; Eosinophils # (A) 0.1 k/uL (0-0.7); Eosinophils % (A) 0 %; HCT 33.4 % (39.0-53.0); HGB 9.7 gm/dL (13.0-17.5); Hypochromasia Marked; Lymphocytes # (A) 1.5 k/uL (1.0-4.8); Lymphocytes % (A) 8 %; MCH 28.5 pg (25.0-35.0); MCHC 29.1 g/dL (31.0-37.0); MCV 97.9 fL (80.0-100.0); Macrocytosis Slight; Mean Platelet Volume 8.6; Monocytes # (A) 0.9 k/uL (0-1.0); Monocytes % (A) 5 %; Neutrophils # (A) 16.4 k/uL (1.3-7.7); Neutrophils % (A) 86 %; Platelet Count 284 k/uL (150-450); Poikilocytosis Slight; RBC 3.41 m/uL (4.30-5.90); RDW 18.4 % (11.5-15.5); WBC 19.2 k/uL (3.8-10.6)
[2017-10-28 09:46] LABS: Potassium 3.9 mmol/L (3.5-5.1)
[2017-10-28] MEDS ORDERED: DEXTROSE 5% IN WATER 1,000 ML IV ONE (10:37)
--- NOTE | 2017-10-28 10:52 | P.PN ---
Subjective Progress Note Date: 10/28/17 Principal diagnosis: Acute sepsis, secondary to acute UTI. Acute on chronic hypoxic respiratory failure related to hypoventilation syndrome, possible atelectasis, obstructive sleep apnea and obesity Master is a 66-year-old white male patient with a past medical history of multiple sclerosis, diabetes mellitus, hypertension, healing stage III sacrum ulcer, neurogenic bladder with chronic indwelling catheter, hypothyroidism, osteoarthritis, who resides at the [facility], was brought to the [facility] on 10/26/2017 with complaints of fever, suspected aspiration pneumonia, and hypoxemia a pulse ox in the 70s at the [facility]. Patient normally wears oxygen at 3 L per nasal cannula. At the [facility] patient was febrile with a temperature of 10 2F and evidence of leukocytosis, with a WBC of 14.8. Patient is a very poor historian, most of the history is obtained from the chart. He can only provide one or 2 word answers. His lab work showed hypernatremia, with serum sodium of 158, potassium is 3.9, chloride is 116, BUN is 52, and creatinine is 1.60. Urinalysis showed 1+ protein, trace blood, small amount of leukocyte esterase, wbc clumps, mucus and bacteria. Influenza screen was negative. Chest x-ray from 10/26/2017 showed cardiomegaly, no heart failure. Blood, urine, and aerobic wound culture of the sacral wound were ordered. Patient was started on vancomycin, Zosyn, nebulized treatments and was admitted for further management. During our evaluation, patient awake, alert, able to follow simple command, and give 1 or 2 word answers. He denies any acute distress, no signs of acute respiratory difficulty. He has a very weak cough. FiO2 is currently at 11 L per high flow nasal cannula, with a pulse ox at 92%. Is having intermittent high fevers, his T-max last 24 hours is 102.3F. On 10/28/2017 patient is seen again on the medical surgical floor. He is a bit more responsive today, more alert. He denies any distress. He continues to have ongoing persistent fevers, T-max in the last 24 hours was 101.9F. ID service is following. Sacral wound culture, blood culture and urine cultures are pending. Patient is on a combination of vancomycin and meropenem per ID service recommendation. Lung sounds are positive for coarse rhonchi, patient has a very weak cough. He is awaiting a speech evaluation. However the nursing staff reports that he has been observed coughing and choking on oral medications and water. Patient has been nothing by mouth while awaiting the official speech evaluation. Today's labs were reviewed, his WBC is trending up , is up to 19.5 from 15.9 on yesterday's labs. Hemoglobin is stable at 9.7, his serum sodium is up to 162. His current IV fluids is 0.9 at 50 ML per hour. We will switch the IV fluids to D5W at 100 ML per hour. Objective - Vital Signs Vital signs: Vital Signs Temp 101.2 F H 10/28/17 07:00 Pulse 92 10/28/17 08:57 Resp 20 10/28/17 07:00 BP 143/74 10/28/17 07:00 Pulse Ox 94 L 10/28/17 07:00 Intake & Output 10/27/17 10/28/17 10/28/17 18:59 06:59 18:59 Intake Total 600 Output Total 1000 900 Balance -400 -900 Weight 122 kg Intake: Intake, IV Titration 600 Amount Piperacillin-Tazobactam 3 100 .375 gm In Dextrose/Water 1 50ml.bag @ 12.5 mls/hr IVPB Q8HR [facility] Rx#: [id number] Vancomycin 2,250 mg In 500 Sodium Chloride 0.9% 500 ml @ 167 mls/hr IVPB DAILY@0600 [facility] Rx#: [id number] Output: Urine 1000 900 Urethral (Rothman) 1000 Other: Voiding Method Indwelling Catheter Indwelling Catheter - Exam GENERAL EXAM: Alert, 66-year-old white male, comfortable in no apparent distress. Patient to follow simple commands, give 1 or 2 word answers, but is not able to give any extensive verbal answers. Currently on 15 L per high flow nasal cannula HEAD: Normocephalic/atraumatic. EYES: Normal reaction of pupils, equal size. Conjunctiva pink, sclera white. NOSE: Clear with pink turbinates. THROAT: No erythema or exudates. NECK: No masses, no JVD, no thyroid enlargement, no adenopathy. CHEST: No chest wall deformity. Symmetrical expansion. LUNGS: Diminished air entry bilaterally, no rhonchi or wheezes noted. He has a very weak nonproductive cough CVS: Regular rate and rhythm, normal S1 and S2, no gallops, no murmurs, no rubs ABDOMEN: Soft, nontender. No hepatosplenomegaly, normal bowel sounds, no guarding or rigidity. EXTREMITIES: No clubbing, no edema, no cyanosis, 2+ pulses and upper and lower extremities. MUSCULOSKELETAL: Muscle strength and tone normal. SPINE: No scoliosis or deformity SKIN: No rashes CENTRAL NERVOUS SYSTEM: Alert and oriented -1. PSYCHIATRIC: Alert and oriented -1. Appropriate affect. - Labs CBC & Chem 7: 10/28/17 08:28 10/28/17 08:28 Labs: Abnormal Lab Results - Last 24 Hours (Table) 10/27/17 10/27/17 10/27/17 Range/Units 07:58 07:58 07:58 WBC (3.8-10.6) k/uL RBC (4.30-5.90) m/uL Hgb (13.0-17.5) gm/dL Hct (39.0-53.0) % MCHC (31.0-37.0) g/dL RDW (11.5-15.5) % Neutrophils # (1.3-7.7) k/uL Sodium 158 H (137-145) mmol/L Chloride 116 H (98-107) mmol/L BUN 52 H (9-20) mg/dL Creatinine 1.60 H (0.66-1.25) mg/dL Glucose 167 H (74-99) mg/dL POC Glucose (mg/dL) (75-99) mg/dL Hemoglobin A1c 6.1 H (4.0-6.0) % Troponin I 0.137 H* (0.000-0.034) ng/mL 10/27/17 10/27/17 10/27/17 Range/Units 11:13 16:58 19:08 WBC (3.8-10.6) k/uL RBC (4.30-5.90) m/uL Hgb (13.0-17.5) gm/dL Hct (39.0-53.0) % MCHC (31.0-37.0) g/dL RDW (11.5-15.5) % Neutrophils # (1.3-7.7) k/uL Sodium (137-145) mmol/L Chloride (98-107) mmol/L BUN (9-20) mg/dL Creatinine (0.66-1.25) mg/dL Glucose (74-99) mg/dL POC Glucose (mg/dL) 160 H 162 H (75-99) mg/dL Hemoglobin A1c (4.0-6.0) % Troponin I 0.229 H* (0.000-0.034) ng/mL 10/28/17 10/28/17 10/28/17 Range/Units 00:22 01:46 01:46 WBC 15.9 H (3.8-10.6) k/uL RBC 3.38 L (4.30-5.90) m/uL Hgb 9.5 L (13.0-17.5) gm/dL Hct 33.1 L (39.0-53.0) % MCHC 28.8 L (31.0-37.0) g/dL RDW 18.5 H (11.5-15.5) % Neutrophils # 13.6 H (1.3-7.7) k/uL Sodium (137-145) mmol/L Chloride (98-107) mmol/L BUN (9-20) mg/dL Creatinine (0.66-1.25) mg/dL Glucose (74-99) mg/dL POC Glucose (mg/dL) 141 H (75-99) mg/dL Hemoglobin A1c (4.0-6.0) % Troponin I 0.248 H* (0.000-0.034) ng/mL 10/28/17 10/28/17 10/28/17 Range/Units 07:46 08:28 08:28 WBC 19.2 H (3.8-10.6) k/uL RBC 3.41 L (4.30-5.90) m/uL Hgb 9.7 L (13.0-17.5) gm/dL Hct 33.4 L (39.0-53.0) % MCHC 29.1 L (31.0-37.0) g/dL RDW 18.4 H (11.5-15.5) % Neutrophils # 16.4 H (1.3-7.7) k/uL Sodium 162 H* (137-145) mmol/L Chloride 119 H (98-107) mmol/L BUN 40 H (9-20) mg/dL Creatinine 1.63 H (0.66-1.25) mg/dL Glucose 140 H (74-99) mg/dL POC Glucose (mg/dL) 145 H (75-99) mg/dL Hemoglobin A1c (4.0-6.0) % Troponin I (0.000-0.034) ng/mL Microbiology - Last 24 Hours (Table) 10/26/17 23:10 Blood Culture - Preliminary Blood No Growth after 24 hours 10/26/17 13:00 Gram Stain - Preliminary Buttock Wound Culture - Preliminary 10/26/17 23:20 Urine Culture - Preliminary Urine,Catheterized Assessment and Plan Plan: Assessment: #1. Acute sepsis, secondary to acute urinary tract infection. Urinalysis was positive for leukocyte esterase, urine bacteria, mucus, urine wbc clumps. Chest x-ray from 10/26/2017 showed cardiomegaly, no heart failure, and no clear-cut evidence of pneumonia #2. Leukocytosis, fever, acute kidney injury secondary to the above, #3. Acute on chronic hypoxic respiratory failure of unclear etiology, patient' s O2 sat was in the 70s that [facility]. Patient has reportedly vomited at the [facility], was suspected to have aspiration pneumonia, however the chest x-ray from 2017 did not show any clear-cut evidence of pneumonia. Patient does have features of hypoventilation syndrome, obstructive sleep apnea, obesity #4. Acute kidney injury secondary to sepsis related to urinary tract infection #5. Hypernatremia, related to a free water deficit, related to poor oral intake , febrile illness, status NPO #6. History of multiple sclerosis #7. Sacral decubitus ulcer, stage III, patient has a diversion colostomy #8. Poor functional performance, patient is a resident of [facility] #9. Diabetes mellitus #10. Neurogenic bladder with chronic indwelling catheter #11. History of MRSA in the sacral wound Plan: Continue antibiotics per ID service recommendation, currently on meropenem and vancomycin. Sacral wound culture, urine and blood cultures pending. Awaiting the evaluation by the speech pathology regarding patient's swallowing. Patient remains nothing by mouth, has been noted to be choking on water and oral medications. Local wound care to the sacral wound per ID service. We'll switch 0.9 normal saline to D5W at 100 ML per hour. Continue nebulized treatments, continue Pulmicort and formoterol. Prognosis is guarded. I performed a history & physical examination of the patient and discussed their management with my nurse practitioner, Corine Mosquera. I reviewed the nurse practitioner's note and agree with the documented findings and plan of care. Lung sounds are positive for coarse scattered rhonchi bilaterally. The findings and the impression was discussed with the patient. I attest to the documentation by the nurse practitioner. Time with Patient: Less than 30
[2017-10-28 11:33] LABS: Glucose,Whole Blood 145 mg/dL (75-99)
--- NOTE | 2017-10-28 15:03 | P.CRDCN ---
History of Present Illness Consult date: 10/28/17 History of present illness: Mr. Rangel is a pleasant 66-year-old male past medical history significant for diabetes mellitus, hypertension, multiple sclerosis, neurogenic bladder, bowel resection with colostomy in place, chronic ivory catheter placement, former tobacco use and anxiety/depression. He denies history of coronary artery disease as well as there is no documented evidence of coronary artery disease. We have been asked to see him in consultation secondary to elevated troponins. He initially was sent to [facility] for fever, hypoxemia and suspected aspiration pneumonia. Upon arrival he was found to have a fever of 102F as well as a urinary tract infection. He was transferred here for further evaluation. He is somewhat confused and unable to accurately answer questions. Unsure why troponin was ordered but it came back to be 0.137, 0.229 and 0.248. He denies any symptoms of chest pain or shortness of breath. EKG on arrival reveals sinus mechanism with first degree AVB with frequent premature atrial complexes with non-specific ST and T-wave abnormalities. Chest xray reveals cardiomegaly with no overt heart failure. Negative for an acute cardiopulmonary process. Laboratory data reviewed, troponin 0.137, 0.229, 0.248, hemoglobin 9.7, WBC 19.2 , platelets 284, sodium 162, potassium 3.9, BUS and 40, creatinine 1.63, magnesium 1.9. Current cardiac medications include Bumex 1 mg twice a day, Lasix 80 mg twice a day and potassium 20 twice a day. Most recent echocardiogram performed June 2016 reveals preserved left ventricular systolic function with EF 55-60%. Review of Systems ROS unobtainable: due to mental status Past Medical History Past Medical History: Diabetes Mellitus, Hypertension, Musculoskeletal Disorder , Osteoarthritis (OA), Thyroid Disorder Additional Past Medical History / Comment(s): ms, healing stage 3 to sacrum, neurogenic bladder/chronic ivory, neuropathy History of Any Multi-Drug Resistant Organisms: MRSA Date of last positivie culture/infection: unknown MDRO Source:: sacral wound Past Surgical History: Bowel Resection, Orthopedic Surgery Additional Past Surgical History / Comment(s): knee surgery 1966, colostomy Past Anesthesia/Blood Transfusion Reactions: No Reported Reaction Past Psychological History: Anxiety, Depression Smoking Status: Former smoker Past Alcohol Use History: Rare Past Drug Use History: None Reported - Past Family History Mother Family Medical History: Cancer Additional Family Medical History / Comment(s): female cancer Father Family Medical History: Diabetes Mellitus Medications and Allergies Home Medications Medication Instructions Recorded Confirmed Type Baclofen [Lioresal] 20 mg PO TID@0500,1300,209908/24/14 10/26/17 History Escitalopram [Lexapro] 20 mg PO HS@199908/24/14 10/26/17 History Gabapentin [Neurontin] 600 mg PO TID@0500,1300,209908/24/14 10/26/17 History Levothyroxine Sodium [Synthroid] 200 mcg PO DAILY@0500 08/24/14 10/26/17 History metFORMIN HCL 1,000 mg PO BID@0900,209908/24/14 10/26/17 History INSULIN LISPRO (HumaLOG) [humaLOG] 20 units SQ BID@1200,1700 06/24/16 10/26/17 History Acetaminophen [Tylenol] 650 mg PO Q4H PRN 10/26/17 10/26/17 History Albuterol Nebulized [Ventolin 2.5 mg INHALATION RT-Q4H PRN 10/26/17 10/26/17 History Nebulized] Bumetanide [Bumex] 1 mg PO BID@0500,1200 10/26/17 10/26/17 History Cranberry-Vitamin C-Inulin 30 ml PO BID@0700,1700 10/26/17 10/26/17 History Escitalopram [Lexapro] 10 mg PO HS@199910/26/17 10/26/17 History Furosemide [Lasix] 80 mg PO BID@0500,1300 10/26/17 10/26/17 History Ibuprofen 600 mg PO TID 10/26/17 10/26/17 History Insulin Glargine [Lantus] 30 unit SQ BID@0900,209910/26/17 10/26/17 History Levothyroxine Sodium [Synthroid] 50 mcg PO DAILY@0500 10/26/17 10/26/17 History Piperacillin-Tazobactam [Zosyn] 3.375 gm IVPB QID 10/26/17 10/26/17 History Polyethylene Glycol 3350 [Miralax] 17 gm PO DAILY PRN 10/26/17 10/26/17 History Potassium Chloride ER [K-Dur 20] 20 meq PO BID@1200,2100 10/26/17 10/26/17 History Allergies Allergy/AdvReac Type Severity Reaction Status Date / Time methylprednisolone sodium Allergy Rash/Hives Verified 07/02/16 08:17 succinate [From Solu-Medrol] Physical Exam Vitals: Vital Signs Temp Pulse Pulse Resp BP Pulse Ox 10/28/17 10:49 102.4 F H 10/28/17 08:57 92 10/28/17 08:35 92 10/28/17 08:34 92 10/28/17 08:18 92 10/28/17 07:00 101.2 F H 90 20 143/74 94 L 10/28/17 05:04 101.9 F H 10/28/17 03:30 91 L 10/28/17 02:50 101.8 F H 89 22 117/63 89 L 10/28/17 00:00 102 F H 10/27/17 23:00 101.6 F H 91 20 151/76 97 10/27/17 20:49 76 10/27/17 20:38 76 10/27/17 20:37 76 10/27/17 20:27 78 97 10/27/17 19:50 101.0 F H 10/27/17 15:24 102 H 10/27/17 15:14 102 H 10/27/17 15:00 100.9 F H 92 18 190/82 94 L 10/27/17 13:19 101.9 F H Intake and Output 10/27/17 10/28/17 10/28/17 22:59 06:59 14:59 Output Total 400 900 Balance -400 -900 Output: Urine 400 900 Urethral (Ivory) 400 Other: Voiding Method Indwelling Catheter Blood pressure 143/74 heart rate 92 fever 101.2 GENERAL: This is a 66-year-old male in no apparent distress at the time of my examination. Flushed in the face. HEENT: Head is atraumatic, normocephalic. Pupils are equal, round. Sclerae anicteric. Conjunctivae are clear. Mucous membranes of the mouth are moist. Neck is supple. There is no jugular venous distention. No carotid bruit is heard. LUNGS: Course rhonchi throughout, no rales or wheezing. No chest wall tenderness is noted on palpation or with deep breathing. Diminished. HEART: Irregular rate and rhythm secondary to frequent PAC's without murmurs, rubs or gallops. S1 and S2 heard. ABDOMEN: Soft, nontender. EXTREMITIES: Trace b/l lower extremity non-pitting peripheral edema and no calf tenderness noted. VASCULAR: Radial and dorsalis pedis pulses palpated, no evidence of clubbing. NEUROLOGIC: Patient is awake and verbal, confused and answering questions inappropriately. Results 10/28/17 08:28 10/28/17 08:28 Cardiac Enzymes 10/27/17 10/28/17 Range/Units 19:08 01:46 Troponin I 0.229 H* 0.248 H* (0.000-0.034) ng/mL CBC 10/28/17 10/28/17 Range/Units 01:46 08:28 WBC 15.9 H 19.2 H (3.8-10.6) k/uL RBC 3.38 L 3.41 L (4.30-5.90) m/uL Hgb 9.5 L 9.7 L (13.0-17.5) gm/dL Hct 33.1 L 33.4 L (39.0-53.0) % Plt Count 270 284 (150-450) k/uL Comprehensive Metabolic Panel 10/28/17 Range/Units 08:28 Sodium 162 H* (137-145) mmol/L Potassium 3.9 (3.5-5.1) mmol/L Chloride 119 H (98-107) mmol/L Carbon Dioxide 29 (22-30) mmol/L BUN 40 H (9-20) mg/dL Creatinine 1.63 H (0.66-1.25) mg/dL Glucose 140 H (74-99) mg/dL Calcium 10.0 (8.4-10.2) mg/dL Current Medications Generic Name Dose Route Start Last Admin Trade Name Freq PRN Reason Stop Dose Admin Acetaminophen 650 mg 10/27/17 09:50 10/27/17 10:59 Tylenol Tab PO 650 mg Q4H PRN Administration Fever and/ or Mild Pain Albuterol/Ipratropium 3 ml 10/27/17 08:00 10/28/17 08:18 Duoneb 0.5 Mg-3 Mg/3 Ml Soln INHALATION 3 ml RT-QID [facility] Administration Albuterol/Ipratropium 3 ml 10/27/17 09:54 Duoneb 0.5 Mg-3 Mg/3 Ml Soln INHALATION RT-Q2H PRN Shortness Of Breath Or Wheezing Budesonide 1 mg 10/27/17 08:00 10/28/17 08:18 Pulmicort INHALATION 1 mg RT-BID [facility] Administration Escitalopram Oxalate 30 mg 10/27/17 20:00 10/27/17 20:02 Lexapro PO 10 mg HS@2000 [facility] Administration Formoterol Fumarate 20 mcg 10/27/17 08:00 10/28/17 08:18 Perforomist INHALATION 20 mcg RT-BID [facility] Administration Gabapentin 600 mg 10/27/17 13:00 10/28/17 12:18 Neurontin PO Not Given TID@0500,1300,2100 [facility] Heparin Sodium (Porcine) 5,000 unit 10/27/17 09:00 10/28/17 08:42 Heparin SQ 5,000 unit Q12HR [facility] Administration Vancomycin HCl 2,250 mg/ 500 mls @ 167 mls/hr 10/28/17 06:00 10/28/17 06:29 Sodium Chloride IVPB 167 mls/hr DAILY@0600 [facility] Administration Acetaminophen 1,000 mg/ IV 100 mls @ 400 mls/hr 10/27/17 18:32 10/28/17 09:53 Solution IVPB 10/28/17 18:14 400 mls/hr Q6HR PRN Administration Fever Meropenem 1 gm/ Sodium 100 mls @ 100 mls/hr 10/28/17 00:00 10/28/17 10:33 Chloride IVPB 100 mls/hr Q8HR [facility] Administration Dextrose/Water 1,000 mls @ 100 mls/hr 10/28/17 10:37 10/28/17 10:53 Dextrose 5%-Water Iv Soln IV 10/28/17 20:36 100 mls/hr .Q10H ONE Administration Insulin Aspart 0 unit 10/27/17 12:30 10/28/17 12:18 Novolog SQ Not [facility] Protocol Insulin Detemir 30 unit 10/27/17 11:30 10/28/17 08:42 Levemir SQ Not Given DAILY [facility] Ketorolac Tromethamine 15 mg 10/28/17 22:56 10/28/17 01:04 Toradol IVP 10/28/17 22:57 15 mg ONCE ONE Administration Levothyroxine Sodium 250 mcg 10/28/17 05:00 10/28/17 05:02 Synthroid PO Not Given DAILY@0500 [facility] Melatonin 3 mg 10/26/17 21:24 Melatonin PO HS PRN Insomnia Naloxone HCl 0.2 mg 10/26/17 21:22 Narcan IV Q2M PRN Opioid Reversal Pantoprazole Sodium 40 mg 10/26/17 21:45 10/28/17 08:42 Protonix IV 40 mg DAILY [facility] Administration Intake and Output 10/27/17 10/28/17 10/28/17 22:59 06:59 14:59 Output Total 400 900 Balance -400 -900 Output: Urine 400 900 Urethral (Ivory) 400 Other: Voiding Method Indwelling Catheter 10/28/17 08:28 10/28/17 08:28 Assessment and Plan Assessment: ASSESSMENT 1. Acute sepsis secondary to urinary tract infection. 2. Mild troponin elevation secondary to Type II event with acute hypoxia on admission. No evidence of heart failure or acute arrhythmia. 3. Acute on chronic hypoxic respiratory failure. 4. Acute kidney injury 5. Leukocytosis with fever as high as 102F not responding to IV acetaminophen 6. Hypernatremia 7. Diabetes mellitus 8. History of multiple sclerosis 9. Neurogenic bladder with chronic indwelling Ivory catheter 10. Chronic stage III sacral decubitus ulcer PLAN Continue with medical management. Troponin elevation is related to acute hypoxic respiratory failure as well as sepsis and not related to an acute coronary event. No cardiac work-up indicated at this time. Thank you kindly for this consultation. Feel free to call with further questions or concerns regarding Mr. Kellogg. Nurse Practitioner note has been reviewed, I agree with a documented findings and plan of care. Patient was seen and examined.
--- NOTE | 2017-10-28 15:49 | XR ---
EXAMINATION TYPE: XR chest 1V DATE OF EXAM: 10/28/2017 COMPARISON: Prior chest x-ray 10/26/2017 HISTORY: Shortness of breath and fever TECHNIQUE: Single frontal view of the chest is obtained. FINDINGS: The heart is markedly enlarged. The right hemidiaphragm is obscured. Central vascularity a ppears somewhat prominently. Interstitium is mildly increased. No evident pneumothorax. Mediastinum i s widened. There are overlying cardiac leads. IMPRESSION: Correlate to exclude congestive heart failure, there may be right lower lobe pneumonia v ersus atelectasis and associated effusion. Follow-up is recommended. Mediastinal widening is nonspeci fic, chest CT could be performed for better evaluation.
[2017-10-28 16:50] LABS: Glucose,Whole Blood 175 mg/dL (75-99)
[2017-10-28 21:01] LABS: Glucose,Whole Blood 165 mg/dL (75-99)
[2017-10-28] MEDS: ESCITALOPRAM 10 MG TAB PO SCH (21:57)
--- NOTE | 2017-10-28 23:51 | P.PN ---
Subjective Progress Note Date: 10/27/17 Principal diagnosis: Pneumonia and UTI Master is a 66-year-old white male patient with a past medical history of multiple sclerosis, diabetes mellitus, hypertension, healing stage III sacrum ulcer, neurogenic bladder with chronic indwelling catheter, hypothyroidism, osteoarthritis, who resides at the [facility], was brought to the [facility] on 10/26/2017 with complaints of fever, suspected aspiration pneumonia, and hypoxemia a pulse ox in the 70s at the [facility]. Patient normally wears oxygen at 3 L per nasal cannula. At the [facility] patient was febrile with a temperature of 10 2F and evidence of leukocytosis, with a WBC of 14.8. Patient is a very poor historian, most of the history is obtained from the chart. He can only provide one or 2 word answers. 10/27/2017 Objective - Vital Signs Vital signs: Vital Signs Temp 101.0 F H 10/27/17 19:50 Pulse 76 10/27/17 20:49 Resp 18 10/27/17 15:00 BP 190/82 10/27/17 15:00 Pulse Ox 97 10/27/17 20:27 Intake & Output 10/27/17 10/27/17 10/28/17 06:59 18:59 06:59 Intake Total 210 600 Output Total 1000 Balance 210 -400 Weight 122 kg 122 kg Intake: Intake, IV Titration 210 600 Amount Piperacillin-Tazobactam 3 50 100 .375 gm In Dextrose/Water 1 50ml.bag @ 12.5 mls/hr IVPB Q8HR [facility] Rx#: [id number] Sodium Chloride 0.9% 1, 160 000 ml @ 50 mls/hr IV . Q20H [facility] Rx#:[id number] Vancomycin 2,250 mg In 500 Sodium Chloride 0.9% 500 ml @ 167 mls/hr IVPB DAILY@0600 [facility] Rx#: [id number] Oral 0 Output: Urine 1000 Urethral ([place]) 1000 Other: Voiding Method Indwelling Catheter Indwelling Catheter - Exam PHYSICAL EXAMINATION: Patient is lying in the bed comfortably, no acute distress, awake alert but couldn't able to speak 1-2 words only. HEENT: Normocephalic. Neck is supple. Pupils reactive. Nostrils clear. Oral cavity is moist. Ears reveal no drainage. Neck reveals no JVD, carotid bruits, or thyromegaly. CHEST EXAMINATION: Trachea is central. Symmetrical expansion. Bilateral air entry diminished basally. CARDIAC: Normal S1, S2 with no gallops. No murmurs ABDOMEN: Soft. Obese Bowel sounds normal. No organomegaly. No abdominal bruits. Extremities: Trace edema. No clubbing or cyanosis Neurologically awake, alert, oriented x3 but very lethargic and drowsy. with well-coordinated movements. No focal deficits noted Skin: No rash or skin lesions. Psychiatric: Could not be assessed completely Musculoskeletal: No joint swelling or deformity. Normal range of motion. - Labs CBC & Chem 7: 10/28/17 08:28 10/28/17 08:28 Labs: Abnormal Lab Results - Last 24 Hours (Table) 10/26/17 10/26/17 10/26/17 Range/Units 23:10 23:10 23:20 WBC (3.8-10.6) k/uL RBC 3.29 L (4.30-5.90) m/uL Hgb 9.2 L (13.0-17.5) gm/dL Hct 32.4 L (39.0-53.0) % MCHC 28.3 L (31.0-37.0) g/dL RDW 18.6 H (11.5-15.5) % Neutrophils # 8.4 H (1.3-7.7) k/uL Lymphocytes # 0.7 L (1.0-4.8) k/uL Sodium 154 H (137-145) mmol/L Chloride 113 H (98-107) mmol/L BUN 55 H (9-20) mg/dL Creatinine 1.60 H (0.66-1.25) mg/dL Glucose 152 H (74-99) mg/dL POC Glucose (mg/dL) (75-99) mg/dL Hemoglobin A1c (4.0-6.0) % Troponin I (0.000-0.034) ng/mL Urine Protein 1+ H (Negative) Urine Blood Trace H (Negative) Ur Leukocyte Esterase Small H (Negative) Urine RBC 8 H (0-5) /hpf Urine WBC 10 H (0-5) /hpf Urine WBC Clumps Rare H (None) /hpf Amorphous Sediment Rare H (None) /hpf Urine Bacteria Rare H (None) /hpf Hyaline Casts 3 H (0-2) /lpf Urine Mucus Rare H (None) /hpf 10/27/17 10/27/17 10/27/17 Range/Units 07:34 07:58 07:58 WBC 14.8 H (3.8-10.6) k/uL RBC 3.47 L (4.30-5.90) m/uL Hgb 9.9 L (13.0-17.5) gm/dL Hct 33.8 L (39.0-53.0) % MCHC 29.1 L (31.0-37.0) g/dL RDW 18.3 H (11.5-15.5) % Neutrophils # 12.9 H (1.3-7.7) k/uL Lymphocytes # 0.9 L (1.0-4.8) k/uL Sodium 158 H (137-145) mmol/L Chloride 116 H (98-107) mmol/L BUN 52 H (9-20) mg/dL Creatinine 1.60 H (0.66-1.25) mg/dL Glucose 167 H (74-99) mg/dL POC Glucose (mg/dL) 160 H (75-99) mg/dL Hemoglobin A1c (4.0-6.0) % Troponin I (0.000-0.034) ng/mL Urine Protein (Negative) Urine Blood (Negative) Ur Leukocyte Esterase (Negative) Urine RBC (0-5) /hpf Urine WBC (0-5) /hpf Urine WBC Clumps (None) /hpf Amorphous Sediment (None) /hpf Urine Bacteria (None) /hpf Hyaline Casts (0-2) /lpf Urine Mucus (None) /hpf 10/27/17 10/27/17 10/27/17 Range/Units 07:58 07:58 11:13 WBC (3.8-10.6) k/uL RBC (4.30-5.90) m/uL Hgb (13.0-17.5) gm/dL Hct (39.0-53.0) % MCHC (31.0-37.0) g/dL RDW (11.5-15.5) % Neutrophils # (1.3-7.7) k/uL Lymphocytes # (1.0-4.8) k/uL Sodium (137-145) mmol/L Chloride (98-107) mmol/L BUN (9-20) mg/dL Creatinine (0.66-1.25) mg/dL Glucose (74-99) mg/dL POC Glucose (mg/dL) 160 H (75-99) mg/dL Hemoglobin A1c 6.1 H (4.0-6.0) % Troponin I 0.137 H* (0.000-0.034) ng/mL Urine Protein (Negative) Urine Blood (Negative) Ur Leukocyte Esterase (Negative) Urine RBC (0-5) /hpf Urine WBC (0-5) /hpf Urine WBC Clumps (None) /hpf Amorphous Sediment (None) /hpf Urine Bacteria (None) /hpf Hyaline Casts (0-2) /lpf Urine Mucus (None) /hpf 10/27/17 10/27/17 Range/Units 16:58 19:08 WBC (3.8-10.6) k/uL RBC (4.30-5.90) m/uL Hgb (13.0-17.5) gm/dL Hct (39.0-53.0) % MCHC (31.0-37.0) g/dL RDW (11.5-15.5) % Neutrophils # (1.3-7.7) k/uL Lymphocytes # (1.0-4.8) k/uL Sodium (137-145) mmol/L Chloride (98-107) mmol/L BUN (9-20) mg/dL Creatinine (0.66-1.25) mg/dL Glucose (74-99) mg/dL POC Glucose (mg/dL) 162 H (75-99) mg/dL Hemoglobin A1c (4.0-6.0) % Troponin I 0.229 H* (0.000-0.034) ng/mL Urine Protein (Negative) Urine Blood (Negative) Ur Leukocyte Esterase (Negative) Urine RBC (0-5) /hpf Urine WBC (0-5) /hpf Urine WBC Clumps (None) /hpf Amorphous Sediment (None) /hpf Urine Bacteria (None) /hpf Hyaline Casts (0-2) /lpf Urine Mucus (None) /hpf Microbiology - Last 24 Hours (Table) 10/26/17 13:00 Wound Culture - Preliminary Buttock 10/26/17 23:20 Urine Culture - Preliminary Urine,Catheterized Assessment and Plan Assessment: Sepsis secondary to acute urinary tract infection Possible aspiration pneumonia Acute on chronic hypoxic respiratory failure due to suspected aspiration pneumonia and multifactorial requiring high flow oxygen currently Acute kidney injury secondary to sepsis Hypernatremia due to poor oral intake Multiple sclerosis and gait dysfunction Hypertension Degenerative joint disease Hypothyroidism Neurogenic bladder Sacral decub ulcer stage III with wound cultures showing gram negative bacilli Diabetes type 2 History of bowel resection and colostomy Poor functional status Plan: Patient will be continued on antibiotics in the form of meropenem and vancomycin as per ID recommendations. Continue with IV fluids and follow up culture reports. Wound cultures from decub ulcers have been sent as well. Pulmonary and ID is following. Prognosis is guarded with multiple medical problems and comorbid conditions. On careful be continued. DVT prophylaxis. Further recommendations based on the clinical course. Time with Patient: Greater than 30
--- NOTE | 2017-10-28 23:56 | P.PN ---
Subjective Progress Note Date: 10/28/17 Principal diagnosis: Pneumonia and UTI Master is a 66-year-old white male patient with a past medical history of multiple sclerosis, diabetes mellitus, hypertension, healing stage III sacrum ulcer, neurogenic bladder with chronic indwelling catheter, hypothyroidism, osteoarthritis, who resides at the [facility], was brought to the [facility] on 10/26/2017 with complaints of fever, suspected aspiration pneumonia, and hypoxemia a pulse ox in the 70s at the [facility]. Patient normally wears oxygen at 3 L per nasal cannula. At the [facility] patient was febrile with a temperature of 10 2F and evidence of leukocytosis, with a WBC of 14.8. Patient is a very poor historian, most of the history is obtained from the chart. He can only provide one or 2 word answers. 10/27/2017 Patient is still having also mental status and confusion. Wound cultures showed no growth so far. Patient does have leukocytosis. No worsening chest pain or shortness of breath. Continue done broad-spectrum antibiotics. He is a poor historian and complete review of systems could not be obtained from the patient Current medications reviewed. 10/28/2017 Patient was only able to speak 1-2 words. Patient has been afebrile. Continued on broad-spectrum antibiotics in the hallway and vancomycin. Decub ulcers wound cultures showed gram-negative a slight. ID and pulmonary following. Sodium level increased to 162 today and IV fluids changed to D5W. We'll monitor for any fluid overload. Continue the current management and discussed with his family at bedside. Chest x-ray showed coarse alert for CHF and there may be a right lower lobe pneumonia. Current medications reviewed. Objective - Vital Signs Vital signs: Vital Signs Temp 98.1 F 10/28/17 17:47 Pulse 76 10/28/17 21:18 Resp 20 10/28/17 15:00 BP 147/84 10/28/17 15:00 Pulse Ox 98 10/28/17 20:54 Intake & Output 10/28/17 10/28/17 10/29/17 06:59 18:59 06:59 Intake Total 1000 Output Total 900 500 Balance -900 500 Intake: Intake, IV Titration 1000 Amount ACETAMINOPHEN IV (For NPO 400 ) 1,000 mg In Empty Bag 1 bag @ 400 mls/hr IVPB Q6HR PRN Rx#:[id number] Meropenem 1 gm In Sodium 100 Chloride 0.9% 100 ml @ 100 mls/hr IVPB Q8HR [facility] Rx#:[id number] Vancomycin 2,250 mg In 500 Sodium Chloride 0.9% 500 ml @ 167 mls/hr IVPB DAILY@0600 [facility] Rx#: [id number] Output: Urine 900 500 Other: Voiding Method Indwelling Catheter Indwelling Catheter - Exam PHYSICAL EXAMINATION: Patient is lying in the bed comfortably, no acute distress, awake alert but couldn't able to speak 1-2 words only. HEENT: Normocephalic. Neck is supple. Pupils reactive. Nostrils clear. Oral cavity is moist. Ears reveal no drainage. Neck reveals no JVD, carotid bruits, or thyromegaly. CHEST EXAMINATION: Trachea is central. Symmetrical expansion. Bilateral air entry diminished basally. CARDIAC: Normal S1, S2 with no gallops. No murmurs ABDOMEN: Soft. Obese Bowel sounds normal. No organomegaly. No abdominal bruits. Extremities: Trace edema. No clubbing or cyanosis Neurologically awake, alert, oriented x3 but very lethargic and drowsy. with well-coordinated movements. No focal deficits noted Skin: No rash or skin lesions. Psychiatric: Could not be assessed completely Musculoskeletal: No joint swelling or deformity. Normal range of motion. - Labs CBC & Chem 7: 10/28/17 08:28 10/28/17 08:28 Labs: Abnormal Lab Results - Last 24 Hours (Table) 10/27/17 10/28/17 10/28/17 Range/Units 07:58 00:22 01:46 WBC (3.8-10.6) k/uL RBC (4.30-5.90) m/uL Hgb (13.0-17.5) gm/dL Hct (39.0-53.0) % MCHC (31.0-37.0) g/dL RDW (11.5-15.5) % Neutrophils # (1.3-7.7) k/uL Sodium (137-145) mmol/L Chloride (98-107) mmol/L BUN (9-20) mg/dL Creatinine (0.66-1.25) mg/dL Glucose (74-99) mg/dL POC Glucose (mg/dL) 141 H (75-99) mg/dL Hemoglobin A1c 6.1 H (4.0-6.0) % Troponin I 0.248 H* (0.000-0.034) ng/mL 10/28/17 10/28/17 10/28/17 Range/Units 01:46 07:46 08:28 WBC 15.9 H 19.2 H (3.8-10.6) k/uL RBC 3.38 L 3.41 L (4.30-5.90) m/uL Hgb 9.5 L 9.7 L (13.0-17.5) gm/dL Hct 33.1 L 33.4 L (39.0-53.0) % MCHC 28.8 L 29.1 L (31.0-37.0) g/dL RDW 18.5 H 18.4 H (11.5-15.5) % Neutrophils # 13.6 H 16.4 H (1.3-7.7) k/uL Sodium (137-145) mmol/L Chloride (98-107) mmol/L BUN (9-20) mg/dL Creatinine (0.66-1.25) mg/dL Glucose (74-99) mg/dL POC Glucose (mg/dL) 145 H (75-99) mg/dL Hemoglobin A1c (4.0-6.0) % Troponin I (0.000-0.034) ng/mL 10/28/17 10/28/17 10/28/17 Range/Units 08:28 11:32 16:47 WBC (3.8-10.6) k/uL RBC (4.30-5.90) m/uL Hgb (13.0-17.5) gm/dL Hct (39.0-53.0) % MCHC (31.0-37.0) g/dL RDW (11.5-15.5) % Neutrophils # (1.3-7.7) k/uL Sodium 162 H* (137-145) mmol/L Chloride 119 H (98-107) mmol/L BUN 40 H (9-20) mg/dL Creatinine 1.63 H (0.66-1.25) mg/dL Glucose 140 H (74-99) mg/dL POC Glucose (mg/dL) 145 H 175 H (75-99) mg/dL Hemoglobin A1c (4.0-6.0) % Troponin I (0.000-0.034) ng/mL 10/28/17 Range/Units 21:00 WBC (3.8-10.6) k/uL RBC (4.30-5.90) m/uL Hgb (13.0-17.5) gm/dL Hct (39.0-53.0) % MCHC (31.0-37.0) g/dL RDW (11.5-15.5) % Neutrophils # (1.3-7.7) k/uL Sodium (137-145) mmol/L Chloride (98-107) mmol/L BUN (9-20) mg/dL Creatinine (0.66-1.25) mg/dL Glucose (74-99) mg/dL POC Glucose (mg/dL) 165 H (75-99) mg/dL Hemoglobin A1c (4.0-6.0) % Troponin I (0.000-0.034) ng/mL Microbiology - Last 24 Hours (Table) 10/26/17 23:20 Urine Culture - Final Urine,Catheterized 10/26/17 13:00 Gram Stain - Preliminary Buttock Wound Culture - Preliminary Gram Neg Bacilli 10/26/17 23:10 Blood Culture - Preliminary Blood No Growth after 24 hours Assessment and Plan Assessment: Sepsis secondary to acute urinary tract infection and pneumonia Possible aspiration pneumonia Acute on chronic hypoxic respiratory failure due to suspected aspiration pneumonia and multifactorial requiring high flow oxygen currently Acute kidney injury secondary to sepsis Hypernatremia due to poor oral intake Multiple sclerosis and gait dysfunction Hypertension Degenerative joint disease Hypothyroidism Neurogenic bladder Sacral decub ulcer stage III with wound cultures showing gram negative bacilli Diabetes type 2 History of bowel resection and colostomy Poor functional status Plan: Patient will be continued on antibiotics in the form of meropenem and vancomycin as per ID recommendations. Continue with IV fluids and follow up culture reports. Urine culture showed no growth. Blood cultures no growth so far. Wound cultures from decub ulcers showed gram-negative bacilli. Pulmonary and ID is following. Prognosis is guarded with multiple medical problems and comorbid conditions. On careful be continued. DVT prophylaxis. Further recommendations based on the clinical course. Time with Patient: Greater than 30
[2017-10-29] MEDS: ACETAMINOPHEN SUPPOSITORY 650 MG SUPP RECTAL PRN ×3 (00:06→08:25)
[2017-10-29] MEDS: GABAPENTIN 300 MG CAP PO SCH ×3 (05:48→20:58)
[2017-10-29] MEDS: LEVOTHYROXINE 125 MCG TAB PO SCH (05:48)
[2017-10-29] MEDS: VANCOMYCIN 2,250 MG in SODIUM CHLORIDE 0.9% 500 ML IVPB SCH (06:36)
[2017-10-29] MEDS: INSULIN ASPART 100 UNIT/ML 1 ML 10 ML VIAL SQ SCH ×4 (07:34→22:05)
[2017-10-29 07:35] LABS: Glucose,Whole Blood 154 mg/dL (75-99)
[2017-10-29] MEDS: FORMOTEROL FUMARATE 20 MCG/2 ML NEBU INHALATION SCH ×2 (08:13→21:22)
[2017-10-29] MEDS: INSULIN DETEMIR 100 UNIT/ML 10 ML VIAL SQ SCH ×2 (08:13→13:55)
[2017-10-29] MEDS: IPRATROPIUM-ALBUTEROL 3 ML NEB INHALATION SCH ×4 (08:13→21:22)
[2017-10-29] MEDS: BUDESONIDE 1 MG/2 ML NEBU INHALATION SCH ×2 (08:13→21:22)
[2017-10-29] MEDS: PANTOPRAZOLE 40 MG/10 ML VIAL IV SCH (08:30)
[2017-10-29] MEDS: HEPARIN SODIUM,PORCINE 5,000 UNIT/ML 1 ML VIAL SQ SCH (08:30)
[2017-10-29 09:07] LABS: Anisocytosis Slight; Basophils # (A) 0.1 k/uL (0-0.2); Basophils % (A) 1 %; Eosinophils # (A) 0.2 k/uL (0-0.7); Eosinophils % (A) 1 %; HCT 32.6 % (39.0-53.0); HGB 9.5 gm/dL (13.0-17.5); Hypochromasia Marked; Lymphocytes # (A) 1.6 k/uL (1.0-4.8); Lymphocytes % (A) 9 %; MCH 28.4 pg (25.0-35.0); MCV 97.7 fL (80.0-100.0); Macrocytosis Slight; Mean Platelet Volume 9.1; Monocytes # (A) 0.6 k/uL (0-1.0); Monocytes % (A) 3 %; Neutrophils # (A) 15.3 k/uL (1.3-7.7); Neutrophils % (A) 85 %; Platelet Count 281 k/uL (150-450); Poikilocytosis Slight; RBC 3.34 m/uL (4.30-5.90); RDW 18.5 % (11.5-15.5)
[2017-10-29] MEDS: MEROPENEM 1 GM in SODIUM CHLORIDE 0.9% 100 ML IVPB SCH ×2 (09:12→17:28)
[2017-10-29 09:28] LABS: Calcium 9.8 mg/dL (8.4-10.2); Potassium 3.6 mmol/L (3.5-5.1)
--- NOTE | 2017-10-29 10:48 | P.PN ---
Subjective Progress Note Date: 10/29/17 Principal diagnosis: Acute sepsis, secondary to acute UTI. Acute on chronic hypoxic respiratory failure related to hypoventilation syndrome, possible atelectasis, obstructive sleep apnea and obesity Master is a 66-year-old white male patient with a past medical history of multiple sclerosis, diabetes mellitus, hypertension, healing stage III sacrum ulcer, neurogenic bladder with chronic indwelling catheter, hypothyroidism, osteoarthritis, who resides at the [facility], was brought to the [facility] on 10/26/2017 with complaints of fever, suspected aspiration pneumonia, and hypoxemia a pulse ox [facility] the 70s at the [facility]. Patient normally wears oxygen at 3 L per nasal cannula. At the [facility] patient was febrile with a temperature of 10 2F and evidence of leukocytosis, with a WBC of 14.8. Patient is a very poor historian, most of the history is obtained from the chart. He can only provide one or 2 word answers. His lab work showed hypernatremia, with serum sodium of 158, potassium is 3.9, chloride is 116, BUN is 52, and creatinine is 1.60. Urinalysis showed 1+ protein, trace blood, small amount of leukocyte esterase, wbc clumps, mucus and bacteria. Influenza screen was negative. Chest x-ray from 10/26/2017 showed cardiomegaly, no heart failure. Blood, urine, and aerobic wound culture of the sacral wound were ordered. Patient was started on vancomycin, Zosyn, nebulized treatments and was admitted for further management. During our evaluation, patient awake, alert, able to follow simple command, and give 1 or 2 word answers. He denies any acute distress, no signs of acute respiratory difficulty. He has a very weak cough. FiO2 is currently at 11 L per high flow nasal cannula, with a pulse ox at 92%. Is having intermittent high fevers, his T-max last 24 hours is 102.3F. On 10/28/2017 patient is seen again on the medical surgical floor. He is a bit more responsive today, more alert. He denies any distress. He continues to have ongoing persistent fevers, T-max in the last 24 hours was 101.9F. ID service is following. Sacral wound culture, blood culture and urine cultures are pending. Patient is on a combination of vancomycin and meropenem per ID service recommendation. Lung sounds are positive for coarse rhonchi, patient has a very weak cough. He is awaiting a speech evaluation. However the nursing staff reports that he has been observed coughing and choking on oral medications and water. Patient has been nothing by mouth while awaiting the official speech evaluation. Today's labs were reviewed, his WBC is trending up , is up to 19.5 from 15.9 on yesterday's labs. Hemoglobin is stable at 9.7, his serum sodium is up to 162. His current IV fluids is 0.9 at 50 ML per hour. We will switch the IV fluids to D5W at 100 ML per hour. On 10/29/2017 patient seen again in follow-up. He remains awake, alert, he denies any acute distress. He appears flushed, patient is having ongoing fevers , with T-max of 103.2F. This morning he is getting ready to be taken down for speech evaluation. He has been nothing by mouth. He remains on high flow nasal cannula at 12 L/m. His pulse ox is at 96%. His lung sounds are diminished with some scattered rhonchi. No rales noted on today's exam, his cough remains very weak. Yesterday's chest x-ray showed obscured right hemidiaphragm, there is a possibility of right lower lobe pneumonia versus atelectasis and associated pleural effusion. Central vascularity somewhat prominent, interstitium mildly increased. Patient remains on a combination of meropenem and vancomycin. Microbiology results have been reviewed and sacral wound culture was positive for gram-negative bacilli, urine and blood cultures remain negative. Today's lab work shows WBC trending up to 18.0, up from 15.9, hemoglobin is stable at 9.5, there has been further increase in his serum sodium up to 164, he is currently on D5W at a rate of 100. His chloride is up to 123, potassium is 3.6, BUN is 38, creatinine is 1.55. Objective - Vital Signs Vital signs: Vital Signs Temp 103.2 F H 10/29/17 09:34 Pulse 88 10/29/17 08:46 Resp 16 10/29/17 06:41 BP 156/78 10/29/17 06:41 Pulse Ox 96 10/29/17 06:41 Intake & Output 10/28/17 10/29/17 10/29/17 18:59 06:59 18:59 Intake Total 1000 Output Total 500 750 Balance 500 -750 Intake: Intake, IV Titration 1000 Amount ACETAMINOPHEN IV (For NPO 400 ) 1,000 mg In Empty Bag 1 bag @ 400 mls/hr IVPB Q6HR [facility]N Rx#:[id number] Meropenem 1 gm In Sodium 100 Chloride 0.9% 100 ml @ 100 mls/hr IVPB Q8HR [facility] Rx#:[id number] Vancomycin 2,250 mg In 500 Sodium Chloride 0.9% 500 ml @ 167 mls/hr IVPB DAILY@0600 [facility] Rx#: [id number] Output: Urine 500 750 Other: Voiding Method Indwelling Catheter Indwelling Catheter Indwelling Catheter - Exam GENERAL EXAM: Alert, 66-year-old white male, comfortable in no apparent distress. Patient to follow simple commands, give 1 or 2 word answers, but is not able to give any extensive verbal answers. Currently on 12 L per high flow nasal cannula HEAD: Normocephalic/atraumatic. EYES: Normal reaction of pupils, equal size. Conjunctiva pink, sclera white. NOSE: Clear with pink turbinates. THROAT: No erythema or exudates. NECK: No masses, no JVD, no thyroid enlargement, no adenopathy. CHEST: No chest wall deformity. Symmetrical expansion. LUNGS: Diminished air entry bilaterally, some scattered rhonchi or wheezes noted. He has a very weak nonproductive cough CVS: Regular rate and rhythm, normal S1 and S2, no gallops, no murmurs, no rubs ABDOMEN: Soft, nontender. No hepatosplenomegaly, normal bowel sounds, no guarding or rigidity. EXTREMITIES: No clubbing, no edema, no cyanosis, 2+ pulses and upper and lower extremities. MUSCULOSKELETAL: Muscle strength and tone normal. SPINE: No scoliosis or deformity SKIN: No rashes CENTRAL NERVOUS SYSTEM: Alert and oriented -1. PSYCHIATRIC: Alert and oriented -1. Appropriate affect. - Labs CBC & Chem 7: 10/29/17 08:06 10/29/17 08:06 Labs: Abnormal Lab Results - Last 24 Hours (Table) 10/28/17 10/28/17 10/28/17 Range/Units 11:32 16:47 21:00 WBC (3.8-10.6) k/uL RBC (4.30-5.90) m/uL Hgb (13.0-17.5) gm/dL Hct (39.0-53.0) % MCHC (31.0-37.0) g/dL RDW (11.5-15.5) % Neutrophils # (1.3-7.7) k/uL Sodium (137-145) mmol/L Chloride (98-107) mmol/L BUN (9-20) mg/dL Creatinine (0.66-1.25) mg/dL Glucose (74-99) mg/dL POC Glucose (mg/dL) 145 H 175 H 165 H (75-99) mg/dL 10/29/17 10/29/17 10/29/17 Range/Units 07:33 08:06 08:06 WBC 18.0 H (3.8-10.6) k/uL RBC 3.34 L (4.30-5.90) m/uL Hgb 9.5 L (13.0-17.5) gm/dL Hct 32.6 L (39.0-53.0) % MCHC 29.0 L (31.0-37.0) g/dL RDW 18.5 H (11.5-15.5) % Neutrophils # 15.3 H (1.3-7.7) k/uL Sodium 164 H* (137-145) mmol/L Chloride 123 H* (98-107) mmol/L BUN 38 H (9-20) mg/dL Creatinine 1.55 H (0.66-1.25) mg/dL Glucose 152 H (74-99) mg/dL POC Glucose (mg/dL) 154 H (75-99) mg/dL Microbiology - Last 24 Hours (Table) 10/28/17 01:45 Blood Culture - Preliminary Blood No Growth after 24 hours 10/28/17 01:30 Blood Culture - Preliminary Blood No Growth after 24 hours 10/26/17 23:10 Blood Culture - Preliminary Blood No Growth after 48 hours 10/26/17 23:20 Urine Culture - Final Urine,Catheterized 10/26/17 13:00 Gram Stain - Preliminary Buttock Wound Culture - Preliminary Gram Neg Bacilli Assessment and Plan Plan: Assessment: #1. Acute sepsis, secondary to acute urinary tract infection and possible right lower lobe pneumonia. Urinalysis was positive for leukocyte esterase, urine bacteria, mucus, urine wbc clumps. Initial chest x-ray on admission did not show any evidence of pneumonia, however repeat chest x-ray on 10/28/2017 shows obscured right hemidiaphragm, cannot rule out right lower lobe pneumonia. #2. Leukocytosis, fever, acute kidney injury secondary to the above, #3. Acute on chronic hypoxic respiratory failure of unclear etiology, patient' s O2 sat was in the 70s that [facility]. Patient has reportedly vomited at the [facility], was suspected to have aspiration pneumonia, chest x-ray from 10/28/2017 shows obscured right hemidiaphragm, cannot rule out right lower lobe pneumonia versus atelectasis. There is central vascularity present and mildly increased interstitium. #4. Acute kidney injury secondary to sepsis related to urinary tract infection #5. Hypernatremia, related to a free water deficit, related to poor oral intake , febrile illness, status NPO. Serum sodium today is up to 164, we will increase the D5W to 150 ML per hour #6. History of multiple sclerosis #7. Sacral decubitus ulcer, stage III, patient has a diversion colostomy #8. Poor functional performance, [facility] a [facility] #9. Diabetes mellitus #10. Neurogenic bladder with chronic indwelling catheter #11. 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 Blood cultures and urine cultures remain negative. Patient continues on combination of vancomycin and meropenem, ID service is following. Patient has remained nothing by mouth, going down for swallow evaluation today. Serum sodium is up to 164, we will increase the D5W to 150 ML per hour. Continue nebulized treatments, yesterday's chest x-ray has been reviewed, cannot rule out right lower lobe pneumonia. Prognosis is guarded. I performed a history & physical examination of the patient and discussed their management with my nurse practitioner, Corine Mosquera. I reviewed the nurse practitioner's note and agree with the documented findings and plan of care. Lung sounds are positive for coarse scattered rhonchi bilaterally. The findings and the impression was discussed with the patient. I attest to the documentation by the nurse practitioner. Time with Patient: Less than 30
--- NOTE | 2017-10-29 12:24 | FL ---
EXAMINATION TYPE: FL barium swallow w video DATE OF EXAM: 10/29/2017 COMPARISON: NONE HISTORY: Multiple sclerosis and shortness of breath. FINDINGS: Patient was evaluated in real-time fluoroscopy in the lateral projection while ingesting barium mixe d with liquids and solids. No aspiration or laryngeal penetration. See dictated report from speech pathology. Exam is limited. 1.43 minutes fluoroscopy time. No intraoperative images.
[2017-10-29 12:49] LABS: Glucose,Whole Blood 187 mg/dL (75-99)
[2017-10-29] MEDS: DEXTROSE 5% IN WATER 1,000 ML IV SCH ×2 (13:55→17:29)
--- NOTE | 2017-10-29 14:17 | P.PN ---
Subjective Progress Note Date: 10/29/17 Mr. Rangel is seen and examined today sitting in bed with family at the bedside. He continues to be febrile with no relief from medications. Telemetry tracings continue to show sinus mechanism with PAC's although there is one this morning that P-waves are not as discernable. We will request an EKG to further evaluate. He seems to be more alert today and is apparently tolerating diet after passing a swallow evaluation. He continues to deny chest pain, shortness of breath, palpitations, nausea or vomiting. WBC 18, hemoglobin 9.5, platelets 281, sodium 164, potassium 3.6, creatinine 1.55. Objective - Vital Signs Vital signs: Vital Signs Temp 103.2 F H 10/29/17 09:34 Pulse 90 10/29/17 12:19 Resp 16 10/29/17 06:41 BP 156/78 10/29/17 06:41 Pulse Ox 96 10/29/17 06:41 Intake & Output 10/28/17 10/29/17 10/29/17 18:59 06:59 18:59 Intake Total 1000 Output Total 500 750 Balance 500 -750 Intake: Intake, IV Titration 1000 Amount ACETAMINOPHEN IV (For NPO 400 ) 1,000 mg In Empty Bag 1 bag @ 400 mls/hr IVPB Q6HR [facility] Rx#:[id number] Meropenem 1 gm In Sodium 100 Chloride 0.9% 100 ml @ 100 mls/hr IVPB Q8HR [facility] Rx#:[id number] Vancomycin 2,250 mg In 500 Sodium Chloride 0.9% 500 ml @ 167 mls/hr IVPB DAILY@0600 [facility] Rx#: [id number] Output: Urine 500 750 Other: Voiding Method Indwelling Catheter Indwelling Catheter Indwelling Catheter - Exam Blood pressure 156/78 heart rate 88 103.2F GENERAL: Well-appearing, well-nourished and in no acute distress. NECK: Supple without JVD or thyromegaly. LUNGS: Breath sounds diminished. Respiration equal and unlabored. Expiratory wheezes, no rales or rhonchi. HEART: Iregular rate and rhythm without murmurs, rubs or gallops. S1 and S2 heard. EXTREMITIES: Normal range of motion, no edema. No clubbing or cyanosis. Peripheral pulses intact. - Labs CBC & Chem 7: 10/30/17 05:16 10/30/17 05:16 Labs: Abnormal Lab Results - Last 24 Hours (Table) 10/28/17 10/28/17 10/29/17 Range/Units 16:47 21:00 07:33 WBC (3.8-10.6) k/uL RBC (4.30-5.90) m/uL Hgb (13.0-17.5) gm/dL Hct (39.0-53.0) % MCHC (31.0-37.0) g/dL RDW (11.5-15.5) % Neutrophils # (1.3-7.7) k/uL Sodium (137-145) mmol/L Chloride (98-107) mmol/L BUN (9-20) mg/dL Creatinine (0.66-1.25) mg/dL Glucose (74-99) mg/dL POC Glucose (mg/dL) 175 H 165 H 154 H (75-99) mg/dL 10/29/17 10/29/17 10/29/17 Range/Units 08:06 08:06 12:33 WBC 18.0 H (3.8-10.6) k/uL RBC 3.34 L (4.30-5.90) m/uL Hgb 9.5 L (13.0-17.5) gm/dL Hct 32.6 L (39.0-53.0) % MCHC 29.0 L (31.0-37.0) g/dL RDW 18.5 H (11.5-15.5) % Neutrophils # 15.3 H (1.3-7.7) k/uL Sodium 164 H* (137-145) mmol/L Chloride 123 H* (98-107) mmol/L BUN 38 H (9-20) mg/dL Creatinine 1.55 H (0.66-1.25) mg/dL Glucose 152 H (74-99) mg/dL POC Glucose (mg/dL) 187 H (75-99) mg/dL Microbiology - Last 24 Hours (Table) 10/28/17 01:45 Blood Culture - Preliminary Blood No Growth after 24 hours 10/28/17 01:30 Blood Culture - Preliminary Blood No Growth after 24 hours 10/26/17 23:10 Blood Culture - Preliminary Blood No Growth after 48 hours 10/26/17 23:20 Urine Culture - Final Urine,Catheterized 10/26/17 13:00 Gram Stain - Preliminary Buttock Wound Culture - Preliminary Gram Neg Bacilli Assessment and Plan Assessment: ASSESSMENT 1. Acute sepsis secondary to urinary tract infection. 2. Mild troponin elevation secondary to Type II event with acute hypoxia on admission. No evidence of heart failure or acute arrhythmia. 3. Acute on chronic hypoxic respiratory failure. 4. Acute kidney injury 5. Leukocytosis with fever as high as 103.2F not responding to IV acetaminophen 6. Hypernatremia 7. Diabetes mellitus 8. History of multiple sclerosis 9. Neurogenic bladder with chronic indwelling Rothman catheter 10. Chronic stage III sacral decubitus ulcer 11. Frequent premature atrial contractions PLAN Continue with medical management. Troponin elevation is related to acute hypoxic respiratory failure as well as sepsis and not related to an acute coronary event. No cardiac work-up indicated at this time. Obtain repeat EKG. Nurse Practitioner note has been reviewed, I agree with a documented findings and plan of care. Patient was seen and examined.
[2017-10-29 17:18] LABS: Glucose,Whole Blood 209 mg/dL (75-99)
[2017-10-29 20:33] LABS: Glucose,Whole Blood 167 mg/dL (75-99)
[2017-10-29] MEDS: APIXABAN 5 MG TAB PO SCH (20:58)
[2017-10-29] MEDS ORDERED: MICAFUNGIN 100 MG in SODIUM CHLORIDE 0.9% 100 ML IVPB SCH (21:00)
[2017-10-29] MEDS: ESCITALOPRAM 10 MG TAB PO SCH (22:05)
[2017-10-29] MEDS: MICAFUNGIN 100 MG in SODIUM CHLORIDE 0.9% 100 ML IVPB SCH (22:05)
--- NOTE | 2017-10-29 22:51 | P.PN ---
Subjective Progress Note Date: 10/29/17 Principal diagnosis: Fever This is a 66-year-old male who resides at [facility], history of MS with chronic Rothman catheter and colostomy. On October 25, patient was found with vomitus all over him and pulse ox was in the 70s at the ECF. Patient does have chronic hypoxic respiratory failure on O2 at 3 L nasal cannula. Patient was then taken to [facility] where he was evaluated and found to have temperature of 102 with leukocytosis of 15. Patient was started on Zosyn and then changed to cefepime, clindamycin and vancomycin. Chest x-ray initially showed clear of consolidation but repeat on October 26 showed suspicious small effusion and pulmonary venous congestion. Urinalysis was cloudy, blood 3+, protein 2+, nitrate positive, leukoesterase 2+ , WBC 5200, RBCs 20-30 and bacteria 4+. BUN was 58 and creatinine 2.5 with baseline creatinine of 1.2-1.5. Abdominal x-ray was normal and showed possible left renal calculi. Troponins were 0.045, 0.055 and 0.071. Patient was diagnosed with aspiration pneumonia, UTI, acute kidney injury and possible non- ST elevated myocardial infarction. Patient was then transferred to [facility]. He has had a temperature maximum 102.3 white count is improved at 9.8 as well as renal function has improved. Repeat chest x-ray shows cardiomegaly. No heart failure. No change from previous. Patient is currently on Zosyn and vancomycin. Blood culture urine culture are status received. Patient also presented with unstageable pressure injury to the bilateral buttocks. Wound cultures have been obtained. Noted the patient has not been tested for influenza. Patient has difficulty communicating due to MS and is a poor historian. He currently denies any shortness of breath but he is on high flow nasal cannula and 11 L pulse ox 93%. On 10/29/2017 patient remains ill remains on high flow oxygen 15 L. He relates he still feels poorly, not much cough. Wound to his buttocks or not very painful that he is just not feeling well. Objective - Vital Signs Vital signs: Vital Signs Temp 99.6 F 10/29/17 22:31 Pulse 85 10/29/17 22:31 Resp 14 02/15/18 22:31 BP 118/74 10/29/17 22:31 Pulse Ox 100 10/29/17 22:31 Intake & Output 10/29/17 10/29/17 10/30/17 06:59 18:59 06:59 Output Total 750 300 300 Balance -750 -300 -300 Output: Urine 750 300 300 Stool 0 Other: Voiding Method Indwelling Catheter Indwelling Catheter Indwelling Catheter Temperature maximum 103.2 - Exam Gen: This is a morbidly obese 66-year-old male. He is sitting up in bed and appears to be comfortable. He does not appear to be in acute respiratory distress. HEENT: Head is atraumatic, normocephalic. Pupils equal, round. Sclerae is anicteric. Patient is edentulous. NECK: Thick and short. No JVD. No lymphadenopathy. No thyromegaly. LUNGS: Diminished to the bilateral bases. No wheezes or rhonchi. No intercostal retractions. HEART: Irregular rate and rhythm. No murmur. ABDOMEN: Soft. Bowel sounds are present. No masses. No tenderness. Colostomy to the left lower quadrant with beefy center. Formed stool and gas present in colostomy bag. SKIN: Patient has redness to the bilateral forearms to his elbows with no open weeping or wounds. There is redness from the bilateral buttocks including the sacrum with open skin tears. EXTREMITIES: 1+ pedal edema. No calf tenderness. Dorsalis pedis palpable bilaterally. NEUROLOGICAL: Patient is awake, alert and oriented x2 and poor historian. Extreme weakness to the bilateral upper and lower extremities. - Labs CBC & Chem 7: 10/29/17 08:06 10/29/17 08:06 Labs: Abnormal Lab Results - Last 24 Hours (Table) 10/29/17 10/29/17 10/29/17 Range/Units 07:33 08:06 08:06 WBC 18.0 H (3.8-10.6) k/uL RBC 3.34 L (4.30-5.90) m/uL Hgb 9.5 L (13.0-17.5) gm/dL Hct 32.6 L (39.0-53.0) % MCHC 29.0 L (31.0-37.0) g/dL RDW 18.5 H (11.5-15.5) % Neutrophils # 15.3 H (1.3-7.7) k/uL Sodium 164 H* (137-145) mmol/L Chloride 123 H* (98-107) mmol/L BUN 38 H (9-20) mg/dL Creatinine 1.55 H (0.66-1.25) mg/dL Glucose 152 H (74-99) mg/dL POC Glucose (mg/dL) 154 H (75-99) mg/dL 10/29/17 10/29/17 10/29/17 Range/Units 12:33 17:16 20:29 WBC (3.8-10.6) k/uL RBC (4.30-5.90) m/uL Hgb (13.0-17.5) gm/dL Hct (39.0-53.0) % MCHC (31.0-37.0) g/dL RDW (11.5-15.5) % Neutrophils # (1.3-7.7) k/uL Sodium (137-145) mmol/L Chloride (98-107) mmol/L BUN (9-20) mg/dL Creatinine (0.66-1.25) mg/dL Glucose (74-99) mg/dL POC Glucose (mg/dL) 187 H 209 H 167 H (75-99) mg/dL Microbiology - Last 24 Hours (Table) 10/26/17 13:00 Gram Stain - Final Buttock Wound Culture - Final Pseudomonas aeruginosa Sonal albicans 10/28/17 01:45 Blood Culture - Preliminary Blood No Growth after 24 hours 10/28/17 01:30 Blood Culture - Preliminary Blood No Growth after 24 hours 10/26/17 23:10 Blood Culture - Preliminary Blood No Growth after 48 hours Assessment and Plan Assessment: 66-year-old male is a very poor historian. As noted he is on 11 L of nasal cannula and has somewhat of a poor mentation. Stated influenza has come back as negative. It is likely the patient has aspiration pneumonia and with his care and ECF alter Zosyn to meropenem with concerns to more resistant pathogens and vancomycin also continues for now. Continue supportive care and respiratory treatments. Zinc will be utilized to the pressure ulcerations of the buttocks noted at admission 10/29/2017 patient remains with high-grade fever. Repeat cultures have been requested. He is on antibiotic therapy including Merrem which will be providing adequate coverage for the pseudomonas aeruginosa isolated from his urine as well as aspiration pneumonia. Chest x-ray continues to show evidence of the right lower lobe infiltrate. A few doses of ibuprofen have been requested to try to improve his fever, aware that he has in Eliquis.
[2017-10-30] MEDS: MEROPENEM 1 GM in SODIUM CHLORIDE 0.9% 100 ML IVPB SCH ×3 (00:32→20:21)
[2017-10-30] MEDS: DEXTROSE 5% IN WATER 1,000 ML IV SCH ×4 (00:32→22:04)
[2017-10-30] MEDS ORDERED: VANCOMYCIN TROUGH DUE 1 EACH MISC MISCELLANE ONE (05:00)
[2017-10-30 05:30] LABS: Anisocytosis Slight; Basophils # (A) 0.1 k/uL (0-0.2); Basophils % (A) 1 %; Eosinophils # (A) 0.8 k/uL (0-0.7); Eosinophils % (A) 5 %; HCT 31.4 % (39.0-53.0); HGB 9.1 gm/dL (13.0-17.5); Hypochromasia Marked; Lymphocytes # (A) 1.7 k/uL (1.0-4.8); Lymphocytes % (A) 11 %; MCH 28.6 pg (25.0-35.0); MCHC 28.9 g/dL (31.0-37.0); MCV 99.2 fL (80.0-100.0); Macrocytosis Slight; Mean Platelet Volume 9.2; Monocytes # (A) 0.2 k/uL (0-1.0); Monocytes % (A) 2 %; Neutrophils # (A) 12.8 k/uL (1.3-7.7); Neutrophils % (A) 81 %; Platelet Count 260 k/uL (150-450); Poikilocytosis Slight; RBC 3.17 m/uL (4.30-5.90); RDW 18.7 % (11.5-15.5); WBC 15.8 k/uL (3.8-10.6)
[2017-10-30 05:52] LABS: Potassium 3.5 mmol/L (3.5-5.1)
[2017-10-30] MEDS: VANCOMYCIN 2,250 MG in SODIUM CHLORIDE 0.9% 500 ML IVPB SCH (06:22)
[2017-10-30] MEDS: LEVOTHYROXINE 125 MCG TAB PO SCH (06:22)
[2017-10-30] MEDS: GABAPENTIN 300 MG CAP PO SCH ×3 (06:22→20:33)
[2017-10-30 07:42] LABS: Glucose,Whole Blood 160 mg/dL (75-99)
[2017-10-30] MEDS: FORMOTEROL FUMARATE 20 MCG/2 ML NEBU INHALATION SCH ×2 (07:56→19:17)
[2017-10-30] MEDS: BUDESONIDE 1 MG/2 ML NEBU INHALATION SCH ×2 (07:56→19:17)
[2017-10-30] MEDS: IPRATROPIUM-ALBUTEROL 3 ML NEB INHALATION SCH ×4 (07:56→19:17)
[2017-10-30] MEDS: INSULIN DETEMIR 100 UNIT/ML 10 ML VIAL SQ SCH (09:09)
[2017-10-30] MEDS: INSULIN ASPART 100 UNIT/ML 1 ML 10 ML VIAL SQ SCH ×4 (09:14→22:09)
[2017-10-30] MEDS: ACETAMINOPHEN SUPPOSITORY 650 MG SUPP RECTAL PRN ×2 (09:14→12:26)
[2017-10-30] MEDS: APIXABAN 5 MG TAB PO SCH ×2 (09:15→20:33)
[2017-10-30] MEDS: PANTOPRAZOLE 40 MG/10 ML VIAL IV SCH (09:15)
[2017-10-30] MEDS: IBUPROFEN 400 MG TAB PO PRN ×2 (10:50→16:57)
[2017-10-30 12:04] LABS: Glucose,Whole Blood 184 mg/dL (75-99)
--- NOTE | 2017-10-30 13:18 | P.PN ---
Subjective Progress Note Date: 10/30/17 Principal diagnosis: Acute sepsis, acute urinary tract infection, acute right lower lobe pneumonia Master is a 66-year-old white male patient with a past medical history of multiple sclerosis, diabetes mellitus, hypertension, healing stage III sacrum ulcer, neurogenic bladder with chronic indwelling catheter, hypothyroidism, osteoarthritis, who resides at the [facility], was brought to the [facility] on 10/26/2017 with complaints of fever, suspected aspiration pneumonia, and hypoxemia a pulse ox in the 70s at the [facility]. Patient normally wears oxygen at 3 L per nasal cannula. At the [facility] patient was febrile with a temperature of 10 2F and evidence of leukocytosis, with a WBC of 14.8. Patient is a very poor historian, most of the history is obtained from the chart. He can only provide one or 2 word answers. His lab work showed hypernatremia, with serum sodium of 158, potassium is 3.9, chloride is 116, BUN is 52, and creatinine is 1.60. Urinalysis showed 1+ protein, trace blood, small amount of leukocyte esterase, wbc clumps, mucus and bacteria. Influenza screen was negative. Chest x-ray from 10/26/2017 showed cardiomegaly, no heart failure. Blood, urine, and aerobic wound culture of the sacral wound were ordered. Patient was started on vancomycin, Zosyn, nebulized treatments and was admitted for further management. During our evaluation, patient awake, alert, able to follow simple command, and give 1 or 2 word answers. He denies any acute distress, no signs of acute respiratory difficulty. He has a very weak cough. FiO2 is currently at 11 L per high flow nasal cannula, with a pulse ox at 92%. Is having intermittent high fevers, his T-max last 24 hours is 102.3F. On 10/28/2017 patient is seen again on the medical surgical floor. He is a bit more responsive today, more alert. He denies any distress. He continues to have ongoing persistent fevers, T-max in the last 24 hours was 101.9F. ID service is following. Sacral wound culture, blood culture and urine cultures are pending. Patient is on a combination of vancomycin and meropenem per ID service recommendation. Lung sounds are positive for coarse rhonchi, patient has a very weak cough. He is awaiting a speech evaluation. However the nursing staff reports that he has been observed coughing and choking on oral medications and water. Patient has been nothing by mouth while awaiting the official speech evaluation. Today's labs were reviewed, his WBC is trending up , is up to 19.5 from 15.9 on yesterday's labs. Hemoglobin is stable at 9.7, his serum sodium is up to 162. His current IV fluids is 0.9 at 50 ML per hour. We will switch the IV fluids to D5W at 100 ML per hour. On 10/29/2017 patient seen again in follow-up. He remains awake, alert, he denies any acute distress. He appears flushed, patient is having ongoing fevers , with T-max of 103.2F. This morning he is getting ready to be taken down for speech evaluation. He has been nothing by mouth. He remains on high flow nasal cannula at 12 L/m. His pulse ox is at 96%. His lung sounds are diminished with some scattered rhonchi. No rales noted on today's exam, his cough remains very weak. Yesterday's chest x-ray showed obscured right hemidiaphragm, there is a possibility of right lower lobe pneumonia versus atelectasis and associated pleural effusion. Central vascularity somewhat prominent, interstitium mildly increased. Patient remains on a combination of meropenem and vancomycin. Microbiology results have been reviewed and sacral wound culture was positive for gram-negative bacilli, urine and blood cultures remain negative. Today's lab work shows WBC trending up to 18.0, up from 15.9, hemoglobin is stable at 9.5, there has been further increase in his serum sodium up to 164, he is currently on D5W at a rate of 100. His chloride is up to 123, potassium is 3.6, BUN is 38, creatinine is 1.55. Patient was reevaluated today on 10/30/2017, basically is about the same, denies any shortness of breath, continues to have intermittent fevers, his T-max was 101.5 last night, this morning it was 100.8. Continues to have leukocytosis with WBC count of 15.8, hemoglobin is 9.1, sodium is coming down from 164, today it is 158, BUN is improving down to 34, creatinine is about the same 1.60. Patient passed his swallow evaluation. Objective - Vital Signs Vital signs: Vital Signs Temp 100.8 F H 10/30/17 12:23 Pulse 83 10/30/17 09:16 Resp 20 10/30/17 09:16 BP 126/75 10/30/17 07:00 Pulse Ox 96 10/30/17 07:00 Intake & Output 10/29/17 10/30/17 10/30/17 18:59 06:59 18:59 Intake Total 480 Output Total 269 739 2631 Balance -300 -120 -1000 Weight 122 kg Intake: Oral 480 Output: Urine 839 064 1714 Urethral (Rothman) 400 Stool 0 0 Other: Voiding Method Indwelling Catheter Indwelling Catheter Indwelling Catheter - Exam ENERAL EXAM: Alert, 66-year-old white male, comfortable in no apparent distress. HEAD: Normocephalic/atraumatic. EYES: Normal reaction of pupils, equal size. Conjunctiva pink, sclera white. NOSE: Clear with pink turbinates. THROAT: No erythema or exudates. NECK: No masses, no JVD, no thyroid enlargement, no adenopathy. CHEST: No chest wall deformity. Symmetrical expansion. LUNGS: Diminished air entry bilaterally, some scattered rhonchi or wheezes noted. CVS: Regular rate and rhythm, normal S1 and S2, no gallops, no murmurs, no rubs ABDOMEN: Soft, nontender. No hepatosplenomegaly, normal bowel sounds, no guarding or rigidity. EXTREMITIES: No clubbing, no edema, no cyanosis, 2+ pulses and upper and lower extremities. SPINE: No scoliosis or deformity SKIN: No rashes CENTRAL NERVOUS SYSTEM: Alert and oriented -1. PSYCHIATRIC: Alert and oriented -1. Appropriate affect. - Labs CBC & Chem 7: 10/30/17 05:16 10/30/17 05:16 Labs: Abnormal Lab Results - Last 24 Hours (Table) 10/29/17 10/29/17 10/30/17 Range/Units 17:16 20:29 05:16 WBC 15.8 H (3.8-10.6) k/uL RBC 3.17 L (4.30-5.90) m/uL Hgb 9.1 L (13.0-17.5) gm/dL Hct 31.4 L (39.0-53.0) % MCHC 28.9 L (31.0-37.0) g/dL RDW 18.7 H (11.5-15.5) % Neutrophils # 12.8 H (1.3-7.7) k/uL Eosinophils # 0.8 H (0-0.7) k/uL Sodium (137-145) mmol/L Chloride (98-107) mmol/L BUN (9-20) mg/dL Creatinine (0.66-1.25) mg/dL Glucose (74-99) mg/dL POC Glucose (mg/dL) 209 H 167 H (75-99) mg/dL Vancomycin Trough ug/mL 10/30/17 10/30/17 10/30/17 Range/Units 05:16 05:16 07:40 WBC (3.8-10.6) k/uL RBC (4.30-5.90) m/uL Hgb (13.0-17.5) gm/dL Hct (39.0-53.0) % MCHC (31.0-37.0) g/dL RDW (11.5-15.5) % Neutrophils # (1.3-7.7) k/uL Eosinophils # (0-0.7) k/uL Sodium 158 H (137-145) mmol/L Chloride 118 H (98-107) mmol/L BUN 34 H (9-20) mg/dL Creatinine 1.60 H (0.66-1.25) mg/dL Glucose 166 H (74-99) mg/dL POC Glucose (mg/dL) 160 H (75-99) mg/dL Vancomycin Trough 31.3 H* ug/mL 10/30/17 Range/Units 12:03 WBC (3.8-10.6) k/uL RBC (4.30-5.90) m/uL Hgb (13.0-17.5) gm/dL Hct (39.0-53.0) % MCHC (31.0-37.0) g/dL RDW (11.5-15.5) % Neutrophils # (1.3-7.7) k/uL Eosinophils # (0-0.7) k/uL Sodium (137-145) mmol/L Chloride (98-107) mmol/L BUN (9-20) mg/dL Creatinine (0.66-1.25) mg/dL Glucose (74-99) mg/dL POC Glucose (mg/dL) 184 H (75-99) mg/dL Vancomycin Trough ug/mL Microbiology - Last 24 Hours (Table) 10/28/17 01:45 Blood Culture - Preliminary Blood No Growth after 48 hours 10/28/17 01:30 Blood Culture - Preliminary Blood No Growth after 48 hours 10/26/17 23:10 Blood Culture - Preliminary Blood No Growth after 72 hours 10/26/17 13:00 Gram Stain - Final Buttock Wound Culture - Final Pseudomonas aeruginosa Sonal albicans Assessment and Plan Assessment: #1. Acute sepsis, secondary to acute urinary tract infection and possible right lower lobe pneumonia. Urinalysis was positive for leukocyte esterase, urine bacteria, mucus, urine wbc clumps. Initial chest x-ray on admission did not show any evidence of pneumonia, however repeat chest x-ray on 10/28/2017 shows obscured right hemidiaphragm, cannot rule out right lower lobe pneumonia. #2. Leukocytosis, fever, acute kidney injury secondary to the above, #3. Acute on chronic hypoxic respiratory failure of unclear etiology, patient' s O2 sat was in the 70s that [facility]. Patient has reportedly vomited at the [facility], was suspected to have aspiration pneumonia, chest x-ray from 10/28/2017 shows obscured right hemidiaphragm, cannot rule out right lower lobe pneumonia versus atelectasis. There is central vascularity present and mildly increased interstitium. #4. Acute kidney injury secondary to sepsis related to urinary tract infection #5. Hypernatremia, related to a free water deficit, related to poor oral intake , febrile illness, status NPO. Serum sodium today is up to 164, we will increase the D5W to 150 ML per hour #6. History of multiple sclerosis #7. Sacral decubitus ulcer, stage III, patient has a diversion colostomy #8. Poor functional performance, patient is a resident of [facility] #9. Diabetes mellitus #10. Neurogenic bladder with chronic indwelling catheter #11. 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 Time with Patient: Less than 30
--- NOTE | 2017-10-30 13:20 | P.PN ---
Subjective Progress Note Date: 10/30/17 Mr. Rangel is seen and examined today sitting in bed. He continues to be febrile with no relief from medications. Yesterday he went into atrial fibrillation with controlled ventricular response. Eliquis was initiated. Telemetry tracings show that he is paroxysmal a-fib with transition back to sinus mechanism with frequent PAC's. He continues to deny chest pain, shortness of breath, palpitations, nausea or vomiting. WBC 15.8, hemoglobin 9.1, platelets 260, sodium 158, potassium 3.5, creatinine 1.6. No evidence of bleeding. Objective - Vital Signs Vital signs: Vital Signs Temp 100.8 F H 10/30/17 12:23 Pulse 83 10/30/17 09:16 Resp 20 10/30/17 09:16 BP 126/75 10/30/17 07:00 Pulse Ox 96 10/30/17 07:00 Intake & Output 10/29/17 10/30/17 10/30/17 18:59 06:59 18:59 Intake Total 480 Output Total 412 458 1818 Balance -300 -120 -1000 Weight 122 kg Intake: Oral 480 Output: Urine 161 129 6477 Urethral (Rothman) 400 Stool 0 0 Other: Voiding Method Indwelling Catheter Indwelling Catheter Indwelling Catheter - Exam Blood pressure 126/75 heart rate 83 100.8F GENERAL: Well-appearing, well-nourished and in no acute distress. NECK: Supple without JVD or thyromegaly. LUNGS: Breath sounds diminished. Respiration equal and unlabored. Expiratory wheezes and course rhonchi with no rales. HEART: Iregular rate and rhythm without murmurs, rubs or gallops. S1 and S2 heard. EXTREMITIES: Normal range of motion, no edema. No clubbing or cyanosis. Peripheral pulses intact. - Labs CBC & Chem 7: 10/30/17 05:16 10/30/17 05:16 Labs: Abnormal Lab Results - Last 24 Hours (Table) 10/29/17 10/29/17 10/30/17 Range/Units 17:16 20:29 05:16 WBC 15.8 H (3.8-10.6) k/uL RBC 3.17 L (4.30-5.90) m/uL Hgb 9.1 L (13.0-17.5) gm/dL Hct 31.4 L (39.0-53.0) % MCHC 28.9 L (31.0-37.0) g/dL RDW 18.7 H (11.5-15.5) % Neutrophils # 12.8 H (1.3-7.7) k/uL Eosinophils # 0.8 H (0-0.7) k/uL Sodium (137-145) mmol/L Chloride (98-107) mmol/L BUN (9-20) mg/dL Creatinine (0.66-1.25) mg/dL Glucose (74-99) mg/dL POC Glucose (mg/dL) 209 H 167 H (75-99) mg/dL Vancomycin Trough ug/mL 10/30/17 10/30/17 10/30/17 Range/Units 05:16 05:16 07:40 WBC (3.8-10.6) k/uL RBC (4.30-5.90) m/uL Hgb (13.0-17.5) gm/dL Hct (39.0-53.0) % MCHC (31.0-37.0) g/dL RDW (11.5-15.5) % Neutrophils # (1.3-7.7) k/uL Eosinophils # (0-0.7) k/uL Sodium 158 H (137-145) mmol/L Chloride 118 H (98-107) mmol/L BUN 34 H (9-20) mg/dL Creatinine 1.60 H (0.66-1.25) mg/dL Glucose 166 H (74-99) mg/dL POC Glucose (mg/dL) 160 H (75-99) mg/dL Vancomycin Trough 31.3 H* ug/mL 10/30/17 Range/Units 12:03 WBC (3.8-10.6) k/uL RBC (4.30-5.90) m/uL Hgb (13.0-17.5) gm/dL Hct (39.0-53.0) % MCHC (31.0-37.0) g/dL RDW (11.5-15.5) % Neutrophils # (1.3-7.7) k/uL Eosinophils # (0-0.7) k/uL Sodium (137-145) mmol/L Chloride (98-107) mmol/L BUN (9-20) mg/dL Creatinine (0.66-1.25) mg/dL Glucose (74-99) mg/dL POC Glucose (mg/dL) 184 H (75-99) mg/dL Vancomycin Trough ug/mL Microbiology - Last 24 Hours (Table) 10/28/17 01:45 Blood Culture - Preliminary Blood No Growth after 48 hours 10/28/17 01:30 Blood Culture - Preliminary Blood No Growth after 48 hours 10/26/17 23:10 Blood Culture - Preliminary Blood No Growth after 72 hours 10/26/17 13:00 Gram Stain - Final Buttock Wound Culture - Final Pseudomonas aeruginosa Sonal albicans Assessment and Plan Assessment: ASSESSMENT 1. Acute sepsis secondary to urinary tract infection. 2. Mild troponin elevation secondary to Type II event with acute hypoxia on admission. No evidence of heart failure or acute arrhythmia. 3. Acute on chronic hypoxic respiratory failure. 4. Acute kidney injury 5. Leukocytosis with fever as high as 103.2F not responding to IV acetaminophen 6. Hypernatremia 7. Diabetes mellitus 8. History of multiple sclerosis 9. Neurogenic bladder with chronic indwelling Rothman catheter 10. Chronic stage III sacral decubitus ulcer 11. Frequent premature atrial contractions 12. New onset paroxysmal atrial fibrillation with controlled ventricular response, CHADS-VASC score 3 PLAN Mr. Rangel was initiated on Eliquis 5 mg BID for anticoagulation to prevent stroke from atrial fibrillation. This was explained to the patient, although not quite sure what he understands. Attempts made to reach the family have been unsuccessful. Continue with medications as were previously ordered. Small dose beta heath has been added as well for rate control. We will continue to follow as needed during the rest of his hospitalization. Please feel free to call with any questions of concerns. Nurse Practitioner note has been reviewed, I agree with a documented findings and plan of care. Patient was seen and examined.
[2017-10-30 17:27] LABS: Glucose,Whole Blood 132 mg/dL (75-99)
[2017-10-30] MEDS: METOPROLOL TARTRATE 12.5 MG TAB PO SCH (20:32)
[2017-10-30] MEDS: ESCITALOPRAM 10 MG TAB PO SCH (20:33)
[2017-10-30 20:45] LABS: Glucose,Whole Blood 144 mg/dL (75-99)
[2017-10-30] MEDS: MICAFUNGIN 100 MG in SODIUM CHLORIDE 0.9% 100 ML IVPB SCH (21:30)
--- NOTE | 2017-10-30 23:25 | P.PN ---
Subjective Progress Note Date: 10/30/17 Principal diagnosis: Fever This is a 66-year-old male who resides at [facility], history of MS with chronic Rothman catheter and colostomy. On October 25, patient was found with vomitus all over him and pulse ox was in the 70s at the ECF. Patient does have chronic hypoxic respiratory failure on O2 at 3 L nasal cannula. Patient was then taken to [facility] where he was evaluated and found to have temperature of 102 with leukocytosis of 15. Patient was started on Zosyn and then changed to cefepime, clindamycin and vancomycin. Chest x-ray initially showed clear of consolidation but repeat on October 26 showed suspicious small effusion and pulmonary venous congestion. Urinalysis was cloudy, blood 3+, protein 2+, nitrate positive, leukoesterase 2+ , WBC 5200, RBCs 20-30 and bacteria 4+. BUN was 58 and creatinine 2.5 with baseline creatinine of 1.2-1.5. Abdominal x-ray was normal and showed possible left renal calculi. Troponins were 0.045, 0.055 and 0.071. Patient was diagnosed with aspiration pneumonia, UTI, acute kidney injury and possible non- ST elevated myocardial infarction. Patient was then transferred to [facility]. He has had a temperature maximum 102.3 white count is improved at 9.8 as well as renal function has improved. Repeat chest x-ray shows cardiomegaly. No heart failure. No change from previous. Patient is currently on Zosyn and vancomycin. Blood culture urine culture are status received. Patient also presented with unstageable pressure injury to the bilateral buttocks. Wound cultures have been obtained. Noted the patient has not been tested for influenza. Patient has difficulty communicating due to MS and is a poor historian. He currently denies any shortness of breath but he is on high flow nasal cannula and 11 L pulse ox 93%. On 10/29/2017 patient remains ill remains on high flow oxygen 15 L. He relates he still feels poorly, not much cough. Wound to his buttocks or not very painful that he is just not feeling well. 10/30/2017 patient remains on 11 L of oxygen, seems to be less short of breath than yesterday, continues to have some intermittent fever but is showing some improvement. No new lesions are noted. Objective - Vital Signs Vital signs: Vital Signs Temp 97.0 F L 10/30/17 22:17 Pulse 85 10/30/17 22:17 Resp 15 10/30/17 22:17 BP 135/67 10/30/17 22:17 Pulse Ox 95 10/30/17 22:17 Intake & Output 10/30/17 10/30/17 10/31/17 06:59 18:59 06:59 Intake Total 480 1375 Output Total 600 1000 300 Balance -120 375 -300 Weight 122 kg Intake: Intake, IV Titration 1300 Amount Dextrose 5% in Water 1, 1200 000 ml @ 150 mls/hr IV . Q6H40M [facility] Rx#:[id number] Meropenem 1 gm In Sodium 100 Chloride 0.9% 100 ml @ 100 mls/hr IVPB Q8HR [facility] Rx#:[id number] Oral 480 75 Output: Urine 600 1000 300 Urethral (Rohtman) 400 Stool 0 0 0 Other: Voiding Method Indwelling Catheter Indwelling Catheter - Exam Gen: This is a morbidly obese 66-year-old male. He is sitting up in bed and appears to be comfortable. He does not appear to be in acute respiratory distress. HEENT: Head is atraumatic, normocephalic. Pupils equal, round. Sclerae is anicteric. Patient is edentulous. NECK: Thick and short. No JVD. No lymphadenopathy. No thyromegaly. LUNGS: Diminished to the bilateral bases. No wheezes or rhonchi. No intercostal retractions. Does have crackles to the right base HEART: Irregular rate and rhythm. No murmur. ABDOMEN: Soft. Bowel sounds are present. No masses. No tenderness. Colostomy to the left lower quadrant with beefy center. Formed stool and gas present in colostomy bag. SKIN: Patient has redness to the bilateral forearms to his elbows with no open weeping or wounds. There is redness from the bilateral buttocks including the sacrum with open skin tears. EXTREMITIES: 1+ pedal edema. No calf tenderness. Dorsalis pedis palpable bilaterally. NEUROLOGICAL: Patient is awake, alert and oriented x2 and poor historian. Extreme weakness to the bilateral upper and lower extremities. - Labs CBC & Chem 7: 10/30/17 05:16 10/30/17 05:16 Labs: Abnormal Lab Results - Last 24 Hours (Table) 10/30/17 10/30/17 10/30/17 Range/Units 05:16 05:16 05:16 WBC 15.8 H (3.8-10.6) k/uL RBC 3.17 L (4.30-5.90) m/uL Hgb 9.1 L (13.0-17.5) gm/dL Hct 31.4 L (39.0-53.0) % MCHC 28.9 L (31.0-37.0) g/dL RDW 18.7 H (11.5-15.5) % Neutrophils # 12.8 H (1.3-7.7) k/uL Eosinophils # 0.8 H (0-0.7) k/uL Sodium 158 H (137-145) mmol/L Chloride 118 H (98-107) mmol/L BUN 34 H (9-20) mg/dL Creatinine 1.60 H (0.66-1.25) mg/dL Glucose 166 H (74-99) mg/dL POC Glucose (mg/dL) (75-99) mg/dL Vancomycin Trough 31.3 H* ug/mL 10/30/17 10/30/17 10/30/17 Range/Units 07:40 12:03 17:20 WBC (3.8-10.6) k/uL RBC (4.30-5.90) m/uL Hgb (13.0-17.5) gm/dL Hct (39.0-53.0) % MCHC (31.0-37.0) g/dL RDW (11.5-15.5) % Neutrophils # (1.3-7.7) k/uL Eosinophils # (0-0.7) k/uL Sodium (137-145) mmol/L Chloride (98-107) mmol/L BUN (9-20) mg/dL Creatinine (0.66-1.25) mg/dL Glucose (74-99) mg/dL POC Glucose (mg/dL) 160 H 184 H 132 H (75-99) mg/dL Vancomycin Trough ug/mL 10/30/17 Range/Units 20:43 WBC (3.8-10.6) k/uL RBC (4.30-5.90) m/uL Hgb (13.0-17.5) gm/dL Hct (39.0-53.0) % MCHC (31.0-37.0) g/dL RDW (11.5-15.5) % Neutrophils # (1.3-7.7) k/uL Eosinophils # (0-0.7) k/uL Sodium (137-145) mmol/L Chloride (98-107) mmol/L BUN (9-20) mg/dL Creatinine (0.66-1.25) mg/dL Glucose (74-99) mg/dL POC Glucose (mg/dL) 144 H (75-99) mg/dL Vancomycin Trough ug/mL Microbiology - Last 24 Hours (Table) 10/28/17 01:45 Blood Culture - Preliminary Blood No Growth after 48 hours 10/28/17 01:30 Blood Culture - Preliminary Blood No Growth after 48 hours 10/26/17 23:10 Blood Culture - Preliminary Blood No Growth after 72 hours Laboratory Results WBC 15.8 k/uL (3.8-10.6) H 10/30/17 05:16 RBC 3.17 m/uL (4.30-5.90) L 10/30/17 05:16 Hgb 9.1 gm/dL (13.0-17.5) L 10/30/17 05:16 Hct 31.4 % (39.0-53.0) L 10/30/17 05:16 MCV 99.2 fL (80.0-100.0) 10/30/17 05:16 MCH 28.6 pg (25.0-35.0) 10/30/17 05:16 MCHC 28.9 g/dL (31.0-37.0) L 10/30/17 05:16 RDW 18.7 % (11.5-15.5) H 10/30/17 05:16 Plt Count 260 k/uL (150-450) 10/30/17 05:16 Neutrophils % 81 % 10/30/17 05:16 Lymphocytes % 11 % 10/30/17 05:16 Monocytes % 2 % 10/30/17 05:16 Eosinophils % 5 % 10/30/17 05:16 Basophils % 1 % 10/30/17 05:16 Neutrophils # 12.8 k/uL (1.3-7.7) H 10/30/17 05:16 Lymphocytes # 1.7 k/uL (1.0-4.8) 10/30/17 05:16 Monocytes # 0.2 k/uL (0-1.0) 10/30/17 05:16 Eosinophils # 0.8 k/uL (0-0.7) H 10/30/17 05:16 Basophils # 0.1 k/uL (0-0.2) 10/30/17 05:16 Hypochromasia Marked 10/30/17 05:16 Poikilocytosis Slight 10/30/17 05:16 Anisocytosis Slight 10/30/17 05:16 Macrocytosis Slight 10/30/17 05:16 PT 11.0 sec (9.0-12.0) 10/26/17 23:10 INR 1.1 (<1.2) 10/26/17 23:10 Sodium 158 mmol/L (137-145) H 10/30/17 05:16 Potassium 3.5 mmol/L (3.5-5.1) 10/30/17 05:16 Chloride 118 mmol/L (98-107) H 10/30/17 05:16 Carbon Dioxide 28 mmol/L (22-30) 10/30/17 05:16 Anion Gap 12 mmol/L 10/30/17 05:16 BUN 34 mg/dL (9-20) H 10/30/17 05:16 Creatinine 1.60 mg/dL (0.66-1.25) H 10/30/17 05:16 Est GFR (MDRD) Af Amer 52 (>60 ml/min/1.73 sqM) 10/30/17 05:16 Est GFR (MDRD) Non-Af 43 (>60 ml/min/1.73 sqM) 10/30/17 05:16 Glucose 166 mg/dL (74-99) H 10/30/17 05:16 POC Glucose (mg/dL) 144 mg/dL (75-99) H 10/30/17 20:43 POC Glu Snuff Box Finisher ID iLttle Aguilar 10/30/17 20:[address] Glu mg/dL 128 10/27/17 07:58 Hemoglobin A1c 6.1 % (4.0-6.0) H 10/27/17 07:58 Plasma Lactic Acid Ron 1.0 mmol/L (0.7-2.0) 10/28/17 01:46 Calcium 9.0 mg/dL (8.4-10.2) 10/30/17 05:16 Magnesium 1.9 mg/dL (1.6-2.3) 10/26/17 23:10 Total Bilirubin 0.6 mg/dL (0.2-1.3) 10/26/17 23:10 AST 44 U/L (17-59) 10/26/17 23:10 ALT 21 U/L (21-72) 10/26/17 23:10 Alkaline Phosphatase 72 U/L (38-126) 10/26/17 23:10 Troponin I 0.248 ng/mL (0.000-0.034) H* 10/28/17 01:46 Total Protein 7.6 g/dL (6.3-8.2) 10/26/17 23:10 Albumin 4.1 g/dL (3.5-5.0) 10/26/17 23:10 TSH 1.550 mIU/L (0.465-4.680) 10/29/17 08:06 Urine Color Yellow 10/26/17 23:20 Urine Appearance Clear (Clear) 10/26/17 23:20 Urine pH 5.5 (5.0-8.0) 10/26/17 23:20 Ur Specific [place] 1.013 (1.001-1.035) 10/26/17 23:20 Urine Protein 1+ (Negative) H 10/26/17 23:20 Urine Glucose (UA) Negative (Negative) 10/26/17 23:20 Urine Ketones Negative (Negative) 10/26/17 23:20 Urine Blood Trace (Negative) H 10/26/17 23:20 Urine Nitrite Negative (Negative) 10/26/17 23:20 Urine Bilirubin Negative (Negative) 10/26/17 23:20 Urine Urobilinogen <2.0 mg/dL (<2.0) 10/26/17 23:20 Ur Leukocyte Esterase Small (Negative) H 10/26/17 23:20 Urine RBC 8 /hpf (0-5) H 10/26/17 23:20 Urine WBC 10 /hpf (0-5) H 10/26/17 23:20 Urine WBC Clumps Rare /hpf (None) H 10/26/17 23:20 Ur Squamous Epith Cells <1 /hpf (0-4) 10/26/17 23:20 Amorphous Sediment Rare /hpf (None) H 10/26/17 23:20 Urine Bacteria Rare /hpf (None) H 10/26/17 23:20 Hyaline Casts 3 /lpf (0-2) H 10/26/17 23:20 Urine Mucus Rare /hpf (None) H 10/26/17 23:20 Vancomycin Trough 31.3 ug/mL H* 10/30/17 05:16 Random Vancomycin 10.5 ug/mL 10/27/17 07:58 Influenza Type A RNA Not Detected (Not Detectd) 10/27/17 09:00 Influenza Type B (PCR) Not Detected (Not Detectd) 10/27/17 09:00 Microbiology 10/28/17 01:45 Blood Blood Culture - Preliminary No Growth after 48 hours 10/28/17 01:30 Blood Blood Culture - Preliminary No Growth after 48 hours 10/26/17 23:10 Blood Blood Culture - Preliminary No Growth after 72 hours 10/26/17 13:00 Buttock Gram Stain - Final 10/26/17 13:00 Buttock Wound Culture - Final Pseudomonas aeruginosa Sonal albicans 10/26/17 23:20 Urine,Catheterized Urine Culture - Final Assessment and Plan Assessment: 66-year-old male is a very poor historian. As noted he is on 11 L of nasal cannula and has somewhat of a poor mentation. Stated influenza has come back as negative. It is likely the patient has aspiration pneumonia and with his care and ECF alter Zosyn to meropenem with concerns to more resistant pathogens and vancomycin also continues for now. Continue supportive care and respiratory treatments. Zinc will be utilized to the pressure ulcerations of the buttocks noted at admission 10/29/2017 patient remains with high-grade fever. Repeat cultures have been requested. He is on antibiotic therapy including Merrem which will be providing adequate coverage for the pseudomonas aeruginosa isolated from his urine as well as aspiration pneumonia. Chest x-ray continues to show evidence of the right lower lobe infiltrate. A few doses of ibuprofen have been used to try to improve his fever, aware that he has in Eliquis. The chemical pneumonitis from the aspiration likely having ongoing fever. We' ll add antifungal therapy given the ongoing fever and isolation of Sonal from the ulcer.
--- NOTE | 2017-10-30 23:45 | P.PN ---
Subjective Progress Note Date: 10/29/17 Principal diagnosis: Pneumonia and UTI Master is a 66-year-old white male patient with a past medical history of multiple sclerosis, diabetes mellitus, hypertension, healing stage III sacrum ulcer, neurogenic bladder with chronic indwelling catheter, hypothyroidism, osteoarthritis, who resides at the [facility], was brought to the [facility] on 10/26/2017 with complaints of fever, suspected aspiration pneumonia, and hypoxemia a pulse ox in the 70s at the ECF. Patient normally wears oxygen at 3 L per nasal cannula. At the [facility] patient was febrile with a temperature of 10 2F and evidence of leukocytosis, with a WBC of 14.8. Patient is a very poor historian, most of the history is obtained from the chart. He can only provide one or 2 word answers. 10/27/2017 Patient is still having also mental status and confusion. Wound cultures showed no growth so far. Patient does have leukocytosis. No worsening chest pain or shortness of breath. Continue done broad-spectrum antibiotics. He is a poor historian and complete review of systems could not be obtained from the patient Current medications reviewed. 10/28/2017 Patient was only able to speak 1-2 words. Patient has been afebrile. Continued on broad-spectrum antibiotics in the hallway and vancomycin. Decub ulcers wound cultures showed gram-negative a slight. ID and pulmonary following. Sodium level increased to 162 today and IV fluids changed to D5W. We'll monitor for any fluid overload. Continue the current management and discussed with his family at bedside. Chest x-ray showed coarse alert for CHF and there may be a right lower lobe pneumonia. 10/29/2017 Today patient is able to swallow and is more awake and oriented. Sodium level is still elevated 162. Continues to be on IV antibiotics and fluids. Otherwise no fever no chills. Patient is a poor historian. Current medications reviewed. Objective - Vital Signs Vital signs: Vital Signs Temp 99.6 F 10/29/17 15:00 Pulse 98 10/29/17 16:07 Resp 20 10/29/17 15:00 BP 154/79 10/29/17 15:00 Pulse Ox 100 10/29/17 15:00 Intake & Output 10/28/17 10/29/17 10/29/17 18:59 06:59 18:59 Intake Total 1000 Output Total 500 750 300 Balance 500 -750 -300 Intake: Intake, IV Titration 1000 Amount ACETAMINOPHEN IV (For NPO 400 ) 1,000 mg In Empty Bag 1 bag @ 400 mls/hr IVPB Q6HR [facility] Rx#:[id number] Meropenem 1 gm In Sodium 100 Chloride 0.9% 100 ml @ 100 mls/hr IVPB Q8HR [facility] Rx#:[id number] Vancomycin 2,250 mg In 500 Sodium Chloride 0.9% 500 ml @ 167 mls/hr IVPB DAILY@0600 [facility] Rx#: [id number] Output: Urine 500 750 300 Other: Voiding Method Indwelling Catheter Indwelling Catheter Indwelling Catheter - Exam PHYSICAL EXAMINATION: Patient is lying in the bed comfortably, no acute distress, awake alert but couldn't able to speak 1-2 words only. HEENT: Normocephalic. Neck is supple. Pupils reactive. Nostrils clear. Oral cavity is moist. Ears reveal no drainage. Neck reveals no JVD, carotid bruits, or thyromegaly. CHEST EXAMINATION: Trachea is central. Symmetrical expansion. Bilateral air entry diminished basally. CARDIAC: Normal S1, S2 with no gallops. No murmurs ABDOMEN: Soft. Obese Bowel sounds normal. No organomegaly. No abdominal bruits. Extremities: Trace edema. No clubbing or cyanosis Neurologically awake, alert, oriented x3 but very lethargic and drowsy. with well-coordinated movements. No focal deficits noted Skin: No rash or skin lesions. Psychiatric: Could not be assessed completely Musculoskeletal: No joint swelling or deformity. Normal range of motion. - Labs CBC & Chem 7: 10/30/17 05:16 10/30/17 05:16 Labs: Abnormal Lab Results - Last 24 Hours (Table) 10/28/17 10/28/17 10/29/17 Range/Units 16:47 21:00 07:33 WBC (3.8-10.6) k/uL RBC (4.30-5.90) m/uL Hgb (13.0-17.5) gm/dL Hct (39.0-53.0) % MCHC (31.0-37.0) g/dL RDW (11.5-15.5) % Neutrophils # (1.3-7.7) k/uL Sodium (137-145) mmol/L Chloride (98-107) mmol/L BUN (9-20) mg/dL Creatinine (0.66-1.25) mg/dL Glucose (74-99) mg/dL POC Glucose (mg/dL) 175 H 165 H 154 H (75-99) mg/dL 10/29/17 10/29/17 10/29/17 Range/Units 08:06 08:06 12:33 WBC 18.0 H (3.8-10.6) k/uL RBC 3.34 L (4.30-5.90) m/uL Hgb 9.5 L (13.0-17.5) gm/dL Hct 32.6 L (39.0-53.0) % MCHC 29.0 L (31.0-37.0) g/dL RDW 18.5 H (11.5-15.5) % Neutrophils # 15.3 H (1.3-7.7) k/uL Sodium 164 H* (137-145) mmol/L Chloride 123 H* (98-107) mmol/L BUN 38 H (9-20) mg/dL Creatinine 1.55 H (0.66-1.25) mg/dL Glucose 152 H (74-99) mg/dL POC Glucose (mg/dL) 187 H (75-99) mg/dL Microbiology - Last 24 Hours (Table) 10/28/17 01:45 Blood Culture - Preliminary Blood No Growth after 24 hours 10/28/17 01:30 Blood Culture - Preliminary Blood No Growth after 24 hours 10/26/17 23:10 Blood Culture - Preliminary Blood No Growth after 48 hours 10/26/17 23:20 Urine Culture - Final Urine,Catheterized 10/26/17 13:00 Gram Stain - Preliminary Buttock Wound Culture - Preliminary Gram Neg Bacilli Assessment and Plan Assessment: Sepsis secondary to acute urinary tract infection and pneumonia Possible aspiration pneumonia Acute on chronic hypoxic respiratory failure due to suspected aspiration pneumonia and multifactorial requiring high flow oxygen currently Acute kidney injury secondary to sepsis Hypernatremia due to poor oral intake Multiple sclerosis and gait dysfunction Hypertension Degenerative joint disease Hypothyroidism Neurogenic bladder Sacral decub ulcer stage III with wound cultures showing gram negative bacilli Diabetes type 2 History of bowel resection and colostomy Poor functional status Plan: Patient will be continued on antibiotics in the form of meropenem and vancomycin as per ID recommendations. Continue with IV fluids and follow up culture reports. Urine culture showed no growth. Blood cultures no growth so far. Wound cultures from decub ulcers showed gram-negative bacilli. Pulmonary and ID is following. Prognosis is guarded with multiple medical problems and comorbid conditions. On careful be continued. DVT prophylaxis. Further recommendations based on the clinical course. Time with Patient: Greater than 30
--- NOTE | 2017-10-30 23:48 | P.PN ---
Subjective Progress Note Date: 10/30/17 Principal diagnosis: Pneumonia and UTI Master is a 66-year-old white male patient with a past medical history of multiple sclerosis, diabetes mellitus, hypertension, healing stage III sacrum ulcer, neurogenic bladder with chronic indwelling catheter, hypothyroidism, osteoarthritis, who resides at the [facility], was brought to the [facility] on 10/26/2017 with complaints of fever, suspected aspiration pneumonia, and hypoxemia a pulse ox in the 70s at the [facility]. Patient normally wears oxygen at 3 L per nasal cannula. At the [facility] patient was febrile with a temperature of 10 2F and evidence of leukocytosis, with a WBC of 14.8. Patient is a very poor historian, most of the history is obtained from the chart. He can only provide one or 2 word answers. 10/27/2017 Patient is still having also mental status and confusion. Wound cultures showed no growth so far. Patient does have leukocytosis. No worsening chest pain or shortness of breath. Continue done broad-spectrum antibiotics. He is a poor historian and complete review of systems could not be obtained from the patient Current medications reviewed. 10/28/2017 Patient was only able to speak 1-2 words. Patient has been afebrile. Continued on broad-spectrum antibiotics in the hallway and vancomycin. Decub ulcers wound cultures showed gram-negative a slight. ID and pulmonary following. Sodium level increased to 162 today and IV fluids changed to D5W. We'll monitor for any fluid overload. Continue the current management and discussed with his family at bedside. Chest x-ray showed coarse alert for CHF and there may be a right lower lobe pneumonia. 10/29/2017 Today patient is able to swallow and is more awake and oriented. Sodium level is still elevated 162. Continues to be on IV antibiotics and fluids. Otherwise no fever no chills. Patient is a poor historian. 10/30/2017 Patient is able to tolerate liquids and consistent carb diet. Sodium level improved to 158. We will reduce IV fluids 100cc per hour. ID and pulmonary is following. Otherwise patient is able to speak 1-2 words only. No acute overnight issues. Current medications reviewed. Objective - Vital Signs Vital signs: Vital Signs Temp 97.5 F L 10/30/17 18:17 Pulse 100 10/30/17 19:39 Resp 20 10/30/17 14:50 BP 143/86 10/30/17 20:53 Pulse Ox 93 L 10/30/17 14:50 Intake & Output 10/30/17 10/30/17 10/31/17 06:59 18:59 06:59 Intake Total 480 1375 Output Total 600 1000 Balance -120 375 Weight 122 kg Intake: Intake, IV Titration 1300 Amount Dextrose 5% in Water 1, 1200 000 ml @ 150 mls/hr IV . Q6H40M [facility] Rx#:[id number] Meropenem 1 gm In Sodium 100 Chloride 0.9% 100 ml @ 100 mls/hr IVPB Q8HR [facility] Rx#:[id number] Oral 480 75 Output: Urine 600 1000 Urethral ([place]) 400 Stool 0 0 Other: Voiding Method Indwelling Catheter Indwelling Catheter - Exam PHYSICAL EXAMINATION: Patient is lying in the bed comfortably, no acute distress, awake alert but couldn't able to speak 1-2 words only. HEENT: Normocephalic. Neck is supple. Pupils reactive. Nostrils clear. Oral cavity is moist. Ears reveal no drainage. Neck reveals no JVD, carotid bruits, or thyromegaly. CHEST EXAMINATION: Trachea is central. Symmetrical expansion. Bilateral air entry diminished basally. CARDIAC: Normal S1, S2 with no gallops. No murmurs ABDOMEN: Soft. Obese Bowel sounds normal. No organomegaly. No abdominal bruits. Extremities: Trace edema. No clubbing or cyanosis Neurologically awake, alert, oriented x3 but very lethargic and drowsy. with well-coordinated movements. No focal deficits noted Skin: No rash or skin lesions. Psychiatric: Could not be assessed completely Musculoskeletal: No joint swelling or deformity. Normal range of motion. - Labs CBC & Chem 7: 10/30/17 05:16 10/30/17 05:16 Labs: Abnormal Lab Results - Last 24 Hours (Table) 10/30/17 10/30/17 10/30/17 Range/Units 05:16 05:16 05:16 WBC 15.8 H (3.8-10.6) k/uL RBC 3.17 L (4.30-5.90) m/uL Hgb 9.1 L (13.0-17.5) gm/dL Hct 31.4 L (39.0-53.0) % MCHC 28.9 L (31.0-37.0) g/dL RDW 18.7 H (11.5-15.5) % Neutrophils # 12.8 H (1.3-7.7) k/uL Eosinophils # 0.8 H (0-0.7) k/uL Sodium 158 H (137-145) mmol/L Chloride 118 H (98-107) mmol/L BUN 34 H (9-20) mg/dL Creatinine 1.60 H (0.66-1.25) mg/dL Glucose 166 H (74-99) mg/dL POC Glucose (mg/dL) (75-99) mg/dL Vancomycin Trough 31.3 H* ug/mL 10/30/17 10/30/17 10/30/17 Range/Units 07:40 12:03 17:20 WBC (3.8-10.6) k/uL RBC (4.30-5.90) m/uL Hgb (13.0-17.5) gm/dL Hct (39.0-53.0) % MCHC (31.0-37.0) g/dL RDW (11.5-15.5) % Neutrophils # (1.3-7.7) k/uL Eosinophils # (0-0.7) k/uL Sodium (137-145) mmol/L Chloride (98-107) mmol/L BUN (9-20) mg/dL Creatinine (0.66-1.25) mg/dL Glucose (74-99) mg/dL POC Glucose (mg/dL) 160 H 184 H 132 H (75-99) mg/dL Vancomycin Trough ug/mL 10/30/17 Range/Units 20:43 WBC (3.8-10.6) k/uL RBC (4.30-5.90) m/uL Hgb (13.0-17.5) gm/dL Hct (39.0-53.0) % MCHC (31.0-37.0) g/dL RDW (11.5-15.5) % Neutrophils # (1.3-7.7) k/uL Eosinophils # (0-0.7) k/uL Sodium (137-145) mmol/L Chloride (98-107) mmol/L BUN (9-20) mg/dL Creatinine (0.66-1.25) mg/dL Glucose (74-99) mg/dL POC Glucose (mg/dL) 144 H (75-99) mg/dL Vancomycin Trough ug/mL Microbiology - Last 24 Hours (Table) 10/28/17 01:45 Blood Culture - Preliminary Blood No Growth after 48 hours 10/28/17 01:30 Blood Culture - Preliminary Blood No Growth after 48 hours 10/26/17 23:10 Blood Culture - Preliminary Blood No Growth after 72 hours 10/26/17 13:00 Gram Stain - Final Buttock Wound Culture - Final Pseudomonas aeruginosa Sonal albicans Assessment and Plan Assessment: Sepsis secondary to acute urinary tract infection and pneumonia Possible aspiration pneumonia Acute on chronic hypoxic respiratory failure due to suspected aspiration pneumonia and multifactorial requiring high flow oxygen currently Acute kidney injury secondary to sepsis Hypernatremia due to poor oral intake. Able to tolerate oral diet now. 162--> 158 Multiple sclerosis and gait dysfunction Hypertension Degenerative joint disease Hypothyroidism Neurogenic bladder Sacral decub ulcer stage III with wound cultures showing gram negative bacilli Diabetes type 2 History of bowel resection and colostomy Poor functional status Plan: Patient will be continued on antibiotics in the form of meropenem and vancomycin as per ID recommendations. Continue with IV fluids and follow up culture reports. Urine culture showed no growth. Blood cultures no growth so far. Wound cultures from decub ulcers showed gram-negative bacilli. Pulmonary and ID is following. Prognosis is guarded with multiple medical problems and comorbid conditions. On careful be continued. DVT prophylaxis. Further recommendations based on the clinical course. Time with Patient: Greater than 30
[2017-10-31] MEDS: DEXTROSE 5% IN WATER 1,000 ML IV SCH ×5 (00:01→22:49)
[2017-10-31] MEDS: VANCOMYCIN 1,750 MG in SODIUM CHLORIDE 0.9% 250 ML IVPB SCH (05:49)
[2017-10-31] MEDS: LEVOTHYROXINE 125 MCG TAB PO SCH (06:55)
[2017-10-31] MEDS: GABAPENTIN 300 MG CAP PO SCH ×3 (06:55→23:07)
[2017-10-31] MEDS: INSULIN ASPART 100 UNIT/ML 1 ML 10 ML VIAL SQ SCH ×3 (07:27→18:37)
[2017-10-31 07:51] LABS: Glucose,Whole Blood 124 mg/dL (75-99)
[2017-10-31] MEDS: IPRATROPIUM-ALBUTEROL 3 ML NEB INHALATION SCH ×4 (08:01→21:14)
[2017-10-31] MEDS: BUDESONIDE 1 MG/2 ML NEBU INHALATION SCH ×2 (08:01→21:14)
[2017-10-31] MEDS: FORMOTEROL FUMARATE 20 MCG/2 ML NEBU INHALATION SCH ×2 (08:01→21:14)
[2017-10-31 08:30] LABS: Calcium 8.8 mg/dL (8.4-10.2); Potassium 3.6 mmol/L (3.5-5.1)
[2017-10-31 09:02] LABS: Anisocytosis Slight; Basophils # (A) 0.1 k/uL (0-0.2); Basophils % (A) 0 %; Eosinophils # (A) 0.9 k/uL (0-0.7); Eosinophils % (A) 6 %; HGB 8.9 gm/dL (13.0-17.5); Hypochromasia Marked; Lymphocytes # (A) 1.6 k/uL (1.0-4.8); Lymphocytes % (A) 11 %; MCH 28.4 pg (25.0-35.0); MCHC 29.7 g/dL (31.0-37.0); MCV 95.6 fL (80.0-100.0); Macrocytosis Slight; Monocytes # (A) 0.3 k/uL (0-1.0); Monocytes % (A) 2 %; Neutrophils # (A) 11.4 k/uL (1.3-7.7); Neutrophils % (A) 79 %; Platelet Count 201 k/uL (150-450); Poikilocytosis Slight; RBC 3.14 m/uL (4.30-5.90); RDW 18.6 % (11.5-15.5); WBC 14.5 k/uL (3.8-10.6)
[2017-10-31] MEDS: INSULIN DETEMIR 100 UNIT/ML 10 ML VIAL SQ SCH (09:36)
[2017-10-31] MEDS: METOPROLOL TARTRATE 12.5 MG TAB PO SCH ×2 (09:36→23:07)
[2017-10-31] MEDS: APIXABAN 5 MG TAB PO SCH ×2 (09:37→23:08)
[2017-10-31] MEDS: PANTOPRAZOLE 40 MG/10 ML VIAL IV SCH (10:47)
[2017-10-31] MEDS: MEROPENEM 1 GM in SODIUM CHLORIDE 0.9% 100 ML IVPB SCH ×2 (10:48→22:48)
[2017-10-31 12:13] LABS: Glucose,Whole Blood 116 mg/dL (75-99)
[2017-10-31 17:49] LABS: Glucose,Whole Blood 146 mg/dL (75-99)
[2017-10-31 21:17] LABS: Glucose,Whole Blood 177 mg/dL (75-99)
[2017-10-31] MEDS: IBUPROFEN 400 MG TAB PO PRN (23:04)
[2017-10-31] MEDS: ESCITALOPRAM 10 MG TAB PO SCH (23:08)
[2017-10-31] MEDS: MICAFUNGIN 100 MG in SODIUM CHLORIDE 0.9% 100 ML IVPB SCH (23:45)
[2017-11-01] MEDS: INSULIN ASPART 100 UNIT/ML 1 ML 10 ML VIAL SQ SCH ×5 (00:58→20:52)
[2017-11-01] MEDS: VANCOMYCIN 1,750 MG in SODIUM CHLORIDE 0.9% 250 ML IVPB SCH (06:54)
[2017-11-01] MEDS: LEVOTHYROXINE 125 MCG TAB PO SCH (06:54)
[2017-11-01] MEDS: GABAPENTIN 300 MG CAP PO SCH ×3 (06:54→20:25)
[2017-11-01 07:21] LABS: Glucose,Whole Blood 128 mg/dL (75-99)
[2017-11-01] MEDS: BUDESONIDE 1 MG/2 ML NEBU INHALATION SCH ×2 (07:33→20:00)
[2017-11-01] MEDS: IPRATROPIUM-ALBUTEROL 3 ML NEB INHALATION SCH ×4 (07:33→20:00)
[2017-11-01] MEDS: FORMOTEROL FUMARATE 20 MCG/2 ML NEBU INHALATION SCH ×2 (07:33→20:00)
[2017-11-01] MEDS: INSULIN DETEMIR 100 UNIT/ML 10 ML VIAL SQ SCH (08:43)
[2017-11-01] MEDS: PANTOPRAZOLE 40 MG TABLET PO SCH (08:44)
[2017-11-01] MEDS: METOPROLOL TARTRATE 12.5 MG TAB PO SCH ×2 (08:44→20:25)
[2017-11-01] MEDS: APIXABAN 5 MG TAB PO SCH ×2 (08:44→20:25)
[2017-11-01] MEDS: DEXTROSE 5% IN WATER 1,000 ML IV SCH ×3 (08:46→10:48)
[2017-11-01 09:08] LABS: Anisocytosis Slight; Basophils # (A) 0.1 k/uL (0-0.2); Basophils % (A) 0 %; Eosinophils # (A) 0.7 k/uL (0-0.7); Eosinophils % (A) 6 %; HCT 27.6 % (39.0-53.0); Hypochromasia Marked; Lymphocytes # (A) 1.2 k/uL (1.0-4.8); Lymphocytes % (A) 9 %; MCH 28.1 pg (25.0-35.0); MCHC 28.9 g/dL (31.0-37.0); MCV 97.3 fL (80.0-100.0); Macrocytosis Slight; Monocytes # (A) 0.3 k/uL (0-1.0); Monocytes % (A) 2 %; Neutrophils # (A) 10.3 k/uL (1.3-7.7); Neutrophils % (A) 81 %; Platelet Count 213 k/uL (150-450); Poikilocytosis Slight; RBC 2.83 m/uL (4.30-5.90); RDW 18.7 % (11.5-15.5); WBC 12.8 k/uL (3.8-10.6)
[2017-11-01 09:37] LABS: Calcium 8.6 mg/dL (8.4-10.2); Potassium 3.6 mmol/L (3.5-5.1)
[2017-11-01] MEDS: MEROPENEM 1 GM in SODIUM CHLORIDE 0.9% 100 ML IVPB SCH ×2 (09:43→21:31)
[2017-11-01 12:22] LABS: Glucose,Whole Blood 104 mg/dL (75-99)
[2017-11-01 17:28] LABS: Glucose,Whole Blood 121 mg/dL (75-99)
[2017-11-01] MEDS: MICAFUNGIN 100 MG in SODIUM CHLORIDE 0.9% 100 ML IVPB SCH (20:10)
[2017-11-01] MEDS: ESCITALOPRAM 10 MG TAB PO SCH (20:25)
[2017-11-01 21:17] LABS: Glucose,Whole Blood 118 mg/dL (75-99)
--- NOTE | 2017-11-01 23:46 | P.PN ---
Subjective Progress Note Date: 10/31/17 Principal diagnosis: Pneumonia and UTI Master is a 66-year-old white male patient with a past medical history of multiple sclerosis, diabetes mellitus, hypertension, healing stage III sacrum ulcer, neurogenic bladder with chronic indwelling catheter, hypothyroidism, osteoarthritis, who resides at the [facility], was brought to the [facility] on 10/26/2017 with complaints of fever, suspected aspiration pneumonia, and hypoxemia a pulse ox in the 70s at the F. Patient normally wears oxygen at 3 L per nasal cannula. At the [facility] patient was febrile with a temperature of 10 2F and evidence of leukocytosis, with a WBC of 14.8. Patient is a very poor historian, most of the history is obtained from the chart. He can only provide one or 2 word answers. 10/27/2017 Patient is still having also mental status and confusion. Wound cultures showed no growth so far. Patient does have leukocytosis. No worsening chest pain or shortness of breath. Continue done broad-spectrum antibiotics. He is a poor historian and complete review of systems could not be obtained from the patient Current medications reviewed. 10/28/2017 Patient was only able to speak 1-2 words. Patient has been afebrile. Continued on broad-spectrum antibiotics in the hallway and vancomycin. Decub ulcers wound cultures showed gram-negative a slight. ID and pulmonary following. Sodium level increased to 162 today and IV fluids changed to D5W. We'll monitor for any fluid overload. Continue the current management and discussed with his family at bedside. Chest x-ray showed coarse alert for CHF and there may be a right lower lobe pneumonia. 10/29/2017 Today patient is able to swallow and is more awake and oriented. Sodium level is still elevated 162. Continues to be on IV antibiotics and fluids. Otherwise no fever no chills. Patient is a poor historian. 10/30/2017 Patient is able to tolerate liquids and consistent carb diet. Sodium level improved to 158. We will reduce IV fluids 100cc per hour. ID and pulmonary is following. Otherwise patient is able to speak 1-2 words only. No acute overnight issues. 10/31/2017 Patient is mental status seems to be improved. But, can only speak 1-2 words. Otherwise sodium level improved to 150 today. Continued on IV fluids with D5 water. Continue antibiotics for pneumonia. No other acute overnight issues. Current medications reviewed. Objective - Vital Signs Vital signs: Vital Signs Temp 98.9 F 10/31/17 15:00 Pulse 90 10/31/17 21:15 Resp 16 10/31/17 15:49 BP 109/68 10/31/17 15:00 Pulse Ox 100 10/31/17 06:53 Intake & Output 10/31/17 10/31/17 11/01/17 06:59 18:59 06:59 Intake Total 500 Output Total 500 700 Balance -500 -200 Weight 122 kg Intake: Oral 500 Output: Urine 500 700 Stool 0 0 Other: Voiding Method Indwelling Catheter Indwelling Catheter - Exam PHYSICAL EXAMINATION: Patient is lying in the bed comfortably, no acute distress, awake alert but couldn't able to speak 1-2 words only. HEENT: Normocephalic. Neck is supple. Pupils reactive. Nostrils clear. Oral cavity is moist. Ears reveal no drainage. Neck reveals no JVD, carotid bruits, or thyromegaly. CHEST EXAMINATION: Trachea is central. Symmetrical expansion. Bilateral air entry diminished basally. CARDIAC: Normal S1, S2 with no gallops. No murmurs ABDOMEN: Soft. Obese Bowel sounds normal. No organomegaly. No abdominal bruits. Extremities: 2+ edema. No clubbing or cyanosis Neurologically awake, alert, oriented x3 but very lethargic and drowsy. with well-coordinated movements. No focal deficits noted Skin: No rash or skin lesions. Psychiatric: Could not be assessed completely Musculoskeletal: No joint swelling or deformity. Normal range of motion. - Labs CBC & Chem 7: 11/01/17 08:38 11/01/17 08:38 Labs: Abnormal Lab Results - Last 24 Hours (Table) 10/31/17 10/31/17 10/31/17 Range/Units 07:23 07:41 07:41 WBC 14.5 H (3.8-10.6) k/uL RBC 3.14 L (4.30-5.90) m/uL Hgb 8.9 L (13.0-17.5) gm/dL Hct 30.0 L (39.0-53.0) % MCHC 29.7 L (31.0-37.0) g/dL RDW 18.6 H (11.5-15.5) % Neutrophils # 11.4 H (1.3-7.7) k/uL Eosinophils # 0.9 H (0-0.7) k/uL Sodium 150 H (137-145) mmol/L Chloride 115 H (98-107) mmol/L BUN 29 H (9-20) mg/dL Creatinine 1.46 H (0.66-1.25) mg/dL Glucose 119 H (74-99) mg/dL POC Glucose (mg/dL) 124 H (75-99) mg/dL 10/31/17 10/31/17 10/31/17 Range/Units 12:09 17:32 21:16 WBC (3.8-10.6) k/uL RBC (4.30-5.90) m/uL Hgb (13.0-17.5) gm/dL Hct (39.0-53.0) % MCHC (31.0-37.0) g/dL RDW (11.5-15.5) % Neutrophils # (1.3-7.7) k/uL Eosinophils # (0-0.7) k/uL Sodium (137-145) mmol/L Chloride (98-107) mmol/L BUN (9-20) mg/dL Creatinine (0.66-1.25) mg/dL Glucose (74-99) mg/dL POC Glucose (mg/dL) 116 H 146 H 177 H (75-99) mg/dL Microbiology - Last 24 Hours (Table) 10/30/17 14:19 Blood Culture - Preliminary Blood No Growth after 24 hours 10/30/17 14:00 Blood Culture - Preliminary Blood No Growth after 24 hours 10/28/17 01:45 Blood Culture - Preliminary Blood No Growth after 72 hours 10/28/17 01:30 Blood Culture - Preliminary Blood No Growth after 72 hours 10/26/17 23:10 Blood Culture - Preliminary Blood No Growth after 96 hours Assessment and Plan Assessment: Sepsis secondary to acute urinary tract infection and pneumonia Possible aspiration pneumonia Acute on chronic hypoxic respiratory failure due to suspected aspiration pneumonia and multifactorial requiring high flow oxygen currently Acute kidney injury secondary to sepsis Hypernatremia due to poor oral intake. Able to tolerate oral diet now. 162--> 158--150 Multiple sclerosis and gait dysfunction Hypertension Degenerative joint disease Hypothyroidism Neurogenic bladder Sacral decub ulcer stage III with wound cultures showing gram negative bacilli Diabetes type 2 History of bowel resection and colostomy Poor functional status Plan: Patient will be continued on antibiotics in the form of meropenem and vancomycin as per ID recommendations. Continue with IV fluids and follow up culture reports. Urine culture showed no growth. Blood cultures no growth so far. Wound cultures from decub ulcers showed gram-negative bacilli. Pulmonary and ID is following. Prognosis is guarded with multiple medical problems and comorbid conditions. On careful be continued. DVT prophylaxis. Further recommendations based on the clinical course. Time with Patient: Greater than 30
--- NOTE | 2017-11-01 23:48 | P.PN ---
Subjective Progress Note Date: 11/01/17 Principal diagnosis: Pneumonia and UTI Master is a 66-year-old white male patient with a past medical history of multiple sclerosis, diabetes mellitus, hypertension, healing stage III sacrum ulcer, neurogenic bladder with chronic indwelling catheter, hypothyroidism, osteoarthritis, who resides at the [facility], was brought to the [facility] on 10/26/2017 with complaints of fever, suspected aspiration pneumonia, and hypoxemia a pulse ox in the 70s at the F. Patient normally wears oxygen at 3 L per nasal cannula. At the [facility] patient was febrile with a temperature of 10 2F and evidence of leukocytosis, with a WBC of 14.8. Patient is a very poor historian, most of the history is obtained from the chart. He can only provide one or 2 word answers. 10/27/2017 Patient is still having also mental status and confusion. Wound cultures showed no growth so far. Patient does have leukocytosis. No worsening chest pain or shortness of breath. Continue done broad-spectrum antibiotics. He is a poor historian and complete review of systems could not be obtained from the patient Current medications reviewed. 10/28/2017 Patient was only able to speak 1-2 words. Patient has been afebrile. Continued on broad-spectrum antibiotics in the hallway and vancomycin. Decub ulcers wound cultures showed gram-negative a slight. ID and pulmonary following. Sodium level increased to 162 today and IV fluids changed to D5W. We'll monitor for any fluid overload. Continue the current management and discussed with his family at bedside. Chest x-ray showed coarse alert for CHF and there may be a right lower lobe pneumonia. 10/29/2017 Today patient is able to swallow and is more awake and oriented. Sodium level is still elevated 162. Continues to be on IV antibiotics and fluids. Otherwise no fever no chills. Patient is a poor historian. 10/30/2017 Patient is able to tolerate liquids and consistent carb diet. Sodium level improved to 158. We will reduce IV fluids 100cc per hour. ID and pulmonary is following. Otherwise patient is able to speak 1-2 words only. No acute overnight issues. 10/31/2017 Patient is mental status seems to be improved. But, can only speak 1-2 words. Otherwise sodium level improved to 150 today. Continued on IV fluids with D5 water. Continue antibiotics for pneumonia. No other acute overnight issues. 11/01/2017 Patient's mental status did improve. Awake and alert. Otherwise sodium level improved to 148 today. Patient is having worsening leg swelling and IV fluids will be reduced. Encourage oral intake. Continue antibiotics and follow closely. Complete review of systems could not be obtained from the patient Current medications reviewed. Objective - Vital Signs Vital signs: Vital Signs Temp 99.7 F H 11/01/17 15:00 Pulse 68 11/01/17 20:21 Resp 18 11/01/17 20:12 BP 143/66 11/01/17 15:00 Pulse Ox 98 11/01/17 20:00 Intake & Output 11/01/17 11/01/17 11/02/17 06:59 18:59 06:59 Intake Total 200 Output Total 1100 500 Balance -1100 -300 Weight 122 kg Intake: Oral 200 Output: Urine 1100 500 Stool 0 0 Other: Voiding Method Indwelling Catheter Indwelling Catheter - Exam PHYSICAL EXAMINATION: Patient is lying in the bed comfortably, no acute distress, awake alert but couldn't able to speak 1-2 words only. HEENT: Normocephalic. Neck is supple. Pupils reactive. Nostrils clear. Oral cavity is moist. Ears reveal no drainage. Neck reveals no JVD, carotid bruits, or thyromegaly. CHEST EXAMINATION: Trachea is central. Symmetrical expansion. Bilateral air entry diminished basally. CARDIAC: Normal S1, S2 with no gallops. No murmurs ABDOMEN: Soft. Obese Bowel sounds normal. No organomegaly. No abdominal bruits. Extremities: 2+ edema. No clubbing or cyanosis Neurologically awake, alert, oriented x3 but very lethargic and drowsy. with well-coordinated movements. No focal deficits noted Skin: No rash or skin lesions. Psychiatric: Could not be assessed completely Musculoskeletal: No joint swelling or deformity. Normal range of motion. - Labs CBC & Chem 7: 11/01/17 08:38 11/01/17 08:38 Labs: Abnormal Lab Results - Last 24 Hours (Table) 11/01/17 11/01/17 11/01/17 Range/Units 07:11 08:38 08:38 WBC 12.8 H (3.8-10.6) k/uL RBC 2.83 L (4.30-5.90) m/uL Hgb 8.0 L (13.0-17.5) gm/dL Hct 27.6 L (39.0-53.0) % MCHC 28.9 L (31.0-37.0) g/dL RDW 18.7 H (11.5-15.5) % Neutrophils # 10.3 H (1.3-7.7) k/uL Sodium 148 H (137-145) mmol/L Chloride 109 H (98-107) mmol/L BUN 25 H (9-20) mg/dL Creatinine 1.48 H (0.66-1.25) mg/dL Glucose 113 H (74-99) mg/dL POC Glucose (mg/dL) 128 H (75-99) mg/dL 11/01/17 11/01/17 11/01/17 Range/Units 12:20 17:22 20:50 WBC (3.8-10.6) k/uL RBC (4.30-5.90) m/uL Hgb (13.0-17.5) gm/dL Hct (39.0-53.0) % MCHC (31.0-37.0) g/dL RDW (11.5-15.5) % Neutrophils # (1.3-7.7) k/uL Sodium (137-145) mmol/L Chloride (98-107) mmol/L BUN (9-20) mg/dL Creatinine (0.66-1.25) mg/dL Glucose (74-99) mg/dL POC Glucose (mg/dL) 104 H 121 H 118 H (75-99) mg/dL Microbiology - Last 24 Hours (Table) 10/30/17 14:19 Blood Culture - Preliminary Blood No Growth after 48 hours 10/30/17 14:00 Blood Culture - Preliminary Blood No Growth after 48 hours 10/28/17 01:45 Blood Culture - Preliminary Blood No Growth after 96 hours 10/28/17 01:30 Blood Culture - Preliminary Blood No Growth after 96 hours 10/26/17 23:10 Blood Culture - Preliminary Blood No Growth after 120 hours Assessment and Plan Assessment: Sepsis secondary to acute urinary tract infection and pneumonia Possible aspiration pneumonia Acute on chronic hypoxic respiratory failure due to suspected aspiration pneumonia and multifactorial requiring high flow oxygen currently Acute kidney injury secondary to sepsis Hypernatremia due to poor oral intake. Able to tolerate oral diet now. 162--> 158--150--148 Multiple sclerosis and gait dysfunction Hypertension Degenerative joint disease Hypothyroidism Neurogenic bladder Sacral decub ulcer stage III with wound cultures showing gram negative bacilli- Pseudomonas and mark Diabetes type 2 History of bowel resection and colostomy Poor functional status Plan: Patient will be continued on antibiotics in the form of meropenem and vancomycin as per ID recommendations. Continue with IV fluids and follow up culture reports. Urine culture showed no growth. Blood cultures no growth so far. Wound cultures from decub ulcers showed gram-negative bacilli. Pulmonary and ID is following. Prognosis is guarded with multiple medical problems and comorbid conditions. On careful be continued. DVT prophylaxis. Further recommendations based on the clinical course. Time with Patient: Greater than 30
[2017-11-02] MEDS: VANCOMYCIN 1,750 MG in SODIUM CHLORIDE 0.9% 250 ML IVPB SCH (06:34)
[2017-11-02] MEDS: LEVOTHYROXINE 125 MCG TAB PO SCH (06:34)
[2017-11-02] MEDS: GABAPENTIN 300 MG CAP PO SCH ×3 (06:34→21:08)
[2017-11-02 07:25] LABS: Glucose,Whole Blood 120 mg/dL (75-99)
[2017-11-02] MEDS: INSULIN ASPART 100 UNIT/ML 1 ML 10 ML VIAL SQ SCH ×4 (08:12→21:08)
[2017-11-02] MEDS: DEXTROSE 5% IN WATER 1,000 ML IV SCH (08:19)
[2017-11-02] MEDS: PANTOPRAZOLE 40 MG TABLET PO SCH (08:19)
[2017-11-02] MEDS: MEROPENEM 1 GM in SODIUM CHLORIDE 0.9% 100 ML IVPB SCH ×2 (08:19→21:05)
[2017-11-02] MEDS: INSULIN DETEMIR 100 UNIT/ML 10 ML VIAL SQ SCH (08:19)
[2017-11-02] MEDS: APIXABAN 5 MG TAB PO SCH ×2 (08:19→21:08)
[2017-11-02] MEDS: METOPROLOL TARTRATE 12.5 MG TAB PO SCH ×2 (08:19→21:25)
[2017-11-02 08:21] LABS: Anisocytosis Slight; Basophils # (A) 0.1 k/uL (0-0.2); Basophils % (A) 0 %; Eosinophils # (A) 0.5 k/uL (0-0.7); Eosinophils % (A) 4 %; HCT 25.8 % (39.0-53.0); HGB 7.8 gm/dL (13.0-17.5); Hypochromasia Marked; Lymphocytes # (A) 1.1 k/uL (1.0-4.8); Lymphocytes % (A) 8 %; MCH 28.8 pg (25.0-35.0); MCHC 30.3 g/dL (31.0-37.0); MCV 95.2 fL (80.0-100.0); Macrocytosis Slight; Mean Platelet Volume 9.2; Monocytes # (A) 0.2 k/uL (0-1.0); Monocytes % (A) 2 %; Neutrophils # (A) 11.8 k/uL (1.3-7.7); Neutrophils % (A) 85 %; Platelet Count 222 k/uL (150-450); Poikilocytosis Slight; RBC 2.71 m/uL (4.30-5.90)
[2017-11-02] MEDS: IPRATROPIUM-ALBUTEROL 3 ML NEB INHALATION SCH ×4 (08:32→20:39)
[2017-11-02] MEDS: BUDESONIDE 1 MG/2 ML NEBU INHALATION SCH ×2 (08:32→20:39)
[2017-11-02] MEDS: FORMOTEROL FUMARATE 20 MCG/2 ML NEBU INHALATION SCH ×2 (08:32→20:39)
[2017-11-02 08:53] LABS: Anion Gap 12 mmol/L; Blood Urea Nitrogen 24 mg/dL (9-20); Calcium 8.6 mg/dL (8.4-10.2); Carbon Dioxide 24 mmol/L (22-30); Chloride 110 mmol/L (98-107); Glucose 114 mg/dL (74-99); Potassium 3.9 mmol/L (3.5-5.1); Sodium 146 mmol/L (137-145)
[2017-11-02 12:38] LABS: Glucose,Whole Blood 136 mg/dL (75-99)
[2017-11-02 17:35] LABS: Glucose,Whole Blood 116 mg/dL (75-99)
--- NOTE | 2017-11-02 19:05 | P.PN ---
Subjective Progress Note Date: 11/02/17 Progress Note Being Dictated for Dr. Morales. Pneumonia and UTI Master is a 66-year-old white male patient with a past medical history of multiple sclerosis, diabetes mellitus, hypertension, healing stage III sacrum ulcer, neurogenic bladder with chronic indwelling catheter, hypothyroidism, osteoarthritis, who resides at the [facility], was brought to the [facility] on 10/26/2017 with complaints of fever, suspected aspiration pneumonia, and hypoxemia a pulse ox in the 70s at the F. Patient normally wears oxygen at 3 L per nasal cannula. At the [facility] patient was febrile with a temperature of 10 2F and evidence of leukocytosis, with a WBC of 14.8. Patient is a very poor historian, most of the history is obtained from the chart. He can only provide one or 2 word answers. 10/27/2017 Patient is still having also mental status and confusion. Wound cultures showed no growth so far. Patient does have leukocytosis. No worsening chest pain or shortness of breath. Continue done broad-spectrum antibiotics. He is a poor historian and complete review of systems could not be obtained from the patient Current medications reviewed. 10/28/2017 Patient was only able to speak 1-2 words. Patient has been afebrile. Continued on broad-spectrum antibiotics in the hallway and vancomycin. Decub ulcers wound cultures showed gram-negative a slight. ID and pulmonary following. Sodium level increased to 162 today and IV fluids changed to D5W. We'll monitor for any fluid overload. Continue the current management and discussed with his family at bedside. Chest x-ray showed coarse alert for CHF and there may be a right lower lobe pneumonia. 10/29/2017 Today patient is able to swallow and is more awake and oriented. Sodium level is still elevated 162. Continues to be on IV antibiotics and fluids. Otherwise no fever no chills. Patient is a poor historian. 10/30/2017 Patient is able to tolerate liquids and consistent carb diet. Sodium level improved to 158. We will reduce IV fluids 100cc per hour. ID and pulmonary is following. Otherwise patient is able to speak 1-2 words only. No acute overnight issues. 10/31/2017 Patient is mental status seems to be improved. But, can only speak 1-2 words. Otherwise sodium level improved to 150 today. Continued on IV fluids with D5 water. Continue antibiotics for pneumonia. No other acute overnight issues. 11/01/2017 Patient's mental status did improve. Awake and alert. Otherwise sodium level improved to 148 today. Patient is having worsening leg swelling and IV fluids will be reduced. Encourage oral intake. Continue antibiotics and follow closely. Complete review of systems could not be obtained from the patient Current medications reviewed. 11/02/17 maintained on antibiotics as per ID. pleasantly confused, awake, conversaning. Renal function improving. Sodium improving, 146. T-max 100. WBC 14. Weak cough. Maintaining O2 sats in the high 90s on 8 L high flow nasal cannula, further titration in progress. Barium swallow reports no impairment, Requires one-to-one feed. Objective - Vital Signs Vital signs: Vital Signs Temp 99.0 F 11/02/17 15:00 Pulse 62 11/02/17 15:00 Resp 22 11/02/17 15:00 BP 121/58 11/02/17 15:00 Pulse Ox 97 11/02/17 15:00 Intake & Output 11/01/17 11/02/17 11/02/17 18:59 06:59 18:59 Intake Total 200 600 240 Output Total 500 2700 Balance -300 -2100 240 Weight 122 kg Intake: Oral 200 600 240 Output: Urine 500 2700 Stool 0 Other: Voiding Method Indwelling Catheter Indwelling Catheter Indwelling Catheter # Bowel Movements 0 - Exam PHYSICAL EXAMINATION: Patient is sitting up in the bed comfortably, no acute distress,alert to person only, thinks he is at home. HEENT: Normocephalic. Neck is supple. Pupils reactive. Nostrils clear. Oral cavity is moist. Neck reveals no JVD, carotid bruits, or thyromegaly. CHEST EXAMINATION: Trachea is central. Symmetrical expansion. Bilateral air entry diminished basally. CARDIAC: Normal S1, S2 with no gallops. No murmurs ABDOMEN: Soft. Obese Bowel sounds normal. No organomegaly. No abdominal bruits. Extremities: 2+ edema. No clubbing or cyanosis Neurologically awake, alert, oriented x1 , diffuse weakness . No focal deficits noted Skin: No rash or skin lesions. Psychiatric: Could not be assessed completely Musculoskeletal: No joint swelling or deformity. Normal range of motion. - Labs CBC & Chem 7: 11/02/17 07:54 11/02/17 07:54 Labs: Abnormal Lab Results - Last 24 Hours (Table) 11/01/17 11/02/17 11/02/17 Range/Units 20:50 07:12 07:54 WBC (3.8-10.6) k/uL RBC (4.30-5.90) m/uL Hgb (13.0-17.5) gm/dL Hct (39.0-53.0) % MCHC (31.0-37.0) g/dL RDW (11.5-15.5) % Neutrophils # (1.3-7.7) k/uL Sodium 146 H (137-145) mmol/L Chloride 110 H (98-107) mmol/L BUN 24 H (9-20) mg/dL Creatinine 1.31 H (0.66-1.25) mg/dL Glucose 114 H (74-99) mg/dL POC Glucose (mg/dL) 118 H 120 H (75-99) mg/dL 11/02/17 11/02/17 11/02/17 Range/Units 07:54 12:35 17:17 WBC 14.0 H (3.8-10.6) k/uL RBC 2.71 L (4.30-5.90) m/uL Hgb 7.8 L (13.0-17.5) gm/dL Hct 25.8 L (39.0-53.0) % MCHC 30.3 L (31.0-37.0) g/dL RDW 19.0 H (11.5-15.5) % Neutrophils # 11.8 H (1.3-7.7) k/uL Sodium (137-145) mmol/L Chloride (98-107) mmol/L BUN (9-20) mg/dL Creatinine (0.66-1.25) mg/dL Glucose (74-99) mg/dL POC Glucose (mg/dL) 136 H 116 H (75-99) mg/dL Microbiology - Last 24 Hours (Table) 10/30/17 14:19 Blood Culture - Preliminary Blood No Growth after 72 hours 10/30/17 14:00 Blood Culture - Preliminary Blood No Growth after 72 hours 10/28/17 01:45 Blood Culture - Preliminary Blood No Growth after 120 hours 10/28/17 01:30 Blood Culture - Preliminary Blood No Growth after 120 hours 10/26/17 23:10 Blood Culture - Final Blood No Growth after 144 hours Assessment and Plan Assessment: Sepsis secondary to acute urinary tract infection and pneumonia Possible aspiration pneumonia Acute on chronic hypoxic respiratory failure due to suspected aspiration pneumonia and multifactorial requiring high flow oxygen currently Acute kidney injury secondary to sepsis Hypernatremia due to poor oral intake. Able to tolerate oral diet now. Multiple sclerosis and gait dysfunction Hypertension Degenerative joint disease Hypothyroidism Neurogenic bladder Sacral decub ulcer stage III with wound cultures showing gram negative bacilli- Pseudomonas and mark Diabetes type 2 History of bowel resection and colostomy Poor functional status Plan: Patient will be continued on antibiotics in the form of meropenem and vancomycin as per ID recommendations. Specialty bed. Oxygenation titrated down to 8 L high flow with further titration in progress. The impression and plan of care has been dictated as directed. : I performed a history and examination of this patient, discussed the same with the dictator. I agree with the dictator's note ,documented as a scribe. Any additional findings or plans will be noted..
[2017-11-02] MEDS: ESCITALOPRAM 10 MG TAB PO SCH (21:08)
[2017-11-02 21:21] LABS: Glucose,Whole Blood 118 mg/dL (75-99)
[2017-11-02] MEDS: MICAFUNGIN 100 MG in SODIUM CHLORIDE 0.9% 100 ML IVPB SCH (22:30)
--- NOTE | 2017-11-03 00:06 | P.PN ---
Subjective Progress Note Date: 11/02/17 Principal diagnosis: Fever This is a 66-year-old male who resides at [facility], history of MS with chronic Rothman catheter and colostomy. On October 25, patient was found with vomitus all over him and pulse ox was in the 70s at the ECF. Patient does have chronic hypoxic respiratory failure on O2 at 3 L nasal cannula. Patient was then taken to [facility] where he was evaluated and found to have temperature of 102 with leukocytosis of 15. Patient was started on Zosyn and then changed to cefepime, clindamycin and vancomycin. Chest x-ray initially showed clear of consolidation but repeat on October 26 showed suspicious small effusion and pulmonary venous congestion. Urinalysis was cloudy, blood 3+, protein 2+, nitrate positive, leukoesterase 2+ , WBC 5200, RBCs 20-30 and bacteria 4+. BUN was 58 and creatinine 2.5 with baseline creatinine of 1.2-1.5. Abdominal x-ray was normal and showed possible left renal calculi. Troponins were 0.045, 0.055 and 0.071. Patient was diagnosed with aspiration pneumonia, UTI, acute kidney injury and possible non- ST elevated myocardial infarction. Patient was then transferred to [facility]. He has had a temperature maximum 102.3 white count is improved at 9.8 as well as renal function has improved. Repeat chest x-ray shows cardiomegaly. No heart failure. No change from previous. Patient is currently on Zosyn and vancomycin. Blood culture urine culture are status received. Patient also presented with unstageable pressure injury to the bilateral buttocks. Wound cultures have been obtained. Noted the patient has not been tested for influenza. Patient has difficulty communicating due to MS and is a poor historian. He currently denies any shortness of breath but he is on high flow nasal cannula and 11 L pulse ox 93%. On 10/29/2017 patient remains ill remains on high flow oxygen 15 L. He relates he still feels poorly, not much cough. Wound to his buttocks or not very painful that he is just not feeling well. 10/30/2017 patient remains on 11 L of oxygen, seems to be less short of breath than yesterday, continues to have some intermittent fever but is showing some improvement. No new lesions are noted. On 11/02/2017 the patient is down to 8 L of oxygen at high flow. Patient relates is less short of breath. Objective - Vital Signs Vital signs: Vital Signs Temp 99.0 F 11/02/17 15:00 Pulse 70 11/02/17 21:03 Resp 22 11/02/17 15:00 BP 121/58 11/02/17 15:00 Pulse Ox 97 11/02/17 15:00 Intake & Output 11/02/17 11/02/17 11/03/17 06:59 18:59 06:59 Intake Total 600 240 Output Total 2700 Balance -2100 240 Intake: Oral 600 240 Output: Urine 2700 Other: Voiding Method Indwelling Catheter Indwelling Catheter # Bowel Movements 0 - Exam Gen: This is a morbidly obese 66-year-old male. He is sitting up in bed and appears to be comfortable. He does not appear to be in acute respiratory distress. HEENT: Head is atraumatic, normocephalic. Pupils equal, round. Sclerae is anicteric. Patient is edentulous. NECK: Thick and short. No JVD. No lymphadenopathy. No thyromegaly. LUNGS: Diminished to the bilateral bases. No wheezes or rhonchi. No intercostal retractions. Does have crackles to the right base HEART: Irregular rate and rhythm. No murmur. ABDOMEN: Soft. Bowel sounds are present. No masses. No tenderness. Colostomy to the left lower quadrant with beefy center. Formed stool and gas present in colostomy bag. SKIN: Patient has redness to the bilateral forearms to his elbows with no open weeping or wounds. There is redness from the bilateral buttocks including the sacrum with open skin tears. EXTREMITIES: 1+ pedal edema. No calf tenderness. Dorsalis pedis palpable bilaterally. NEUROLOGICAL: Patient is awake, alert and oriented x2 and poor historian. Extreme weakness to the bilateral upper and lower extremities. - Labs CBC & Chem 7: 11/02/17 07:54 11/02/17 07:54 Labs: Abnormal Lab Results - Last 24 Hours (Table) 11/02/17 11/02/17 11/02/17 Range/Units 07:12 07:54 07:54 WBC 14.0 H (3.8-10.6) k/uL RBC 2.71 L (4.30-5.90) m/uL Hgb 7.8 L (13.0-17.5) gm/dL Hct 25.8 L (39.0-53.0) % MCHC 30.3 L (31.0-37.0) g/dL RDW 19.0 H (11.5-15.5) % Neutrophils # 11.8 H (1.3-7.7) k/uL Sodium 146 H (137-145) mmol/L Chloride 110 H (98-107) mmol/L BUN 24 H (9-20) mg/dL Creatinine 1.31 H (0.66-1.25) mg/dL Glucose 114 H (74-99) mg/dL POC Glucose (mg/dL) 120 H (75-99) mg/dL 11/02/17 11/02/17 11/02/17 Range/Units 12:35 17:17 20:26 WBC (3.8-10.6) k/uL RBC (4.30-5.90) m/uL Hgb (13.0-17.5) gm/dL Hct (39.0-53.0) % MCHC (31.0-37.0) g/dL RDW (11.5-15.5) % Neutrophils # (1.3-7.7) k/uL Sodium (137-145) mmol/L Chloride (98-107) mmol/L BUN (9-20) mg/dL Creatinine (0.66-1.25) mg/dL Glucose (74-99) mg/dL POC Glucose (mg/dL) 136 H 116 H 118 H (75-99) mg/dL Microbiology - Last 24 Hours (Table) 10/30/17 14:19 Blood Culture - Preliminary Blood No Growth after 72 hours 10/30/17 14:00 Blood Culture - Preliminary Blood No Growth after 72 hours 10/28/17 01:45 Blood Culture - Preliminary Blood No Growth after 120 hours 10/28/17 01:30 Blood Culture - Preliminary Blood No Growth after 120 hours 10/26/17 23:10 Blood Culture - Final Blood No Growth after 144 hours Laboratory Results WBC 14.0 k/uL (3.8-10.6) H 11/02/17 07:54 RBC 2.71 m/uL (4.30-5.90) L 11/02/17 07:54 Hgb 7.8 gm/dL (13.0-17.5) L 11/02/17 07:54 Hct 25.8 % (39.0-53.0) L 11/02/17 07:54 MCV 95.2 fL (80.0-100.0) 11/02/17 07:54 MCH 28.8 pg (25.0-35.0) 11/02/17 07:54 MCHC 30.3 g/dL (31.0-37.0) L 11/02/17 07:54 RDW 19.0 % (11.5-15.5) H 11/02/17 07:54 Plt Count 222 k/uL (150-450) 11/02/17 07:54 Neutrophils % 85 % 11/02/17 07:54 Lymphocytes % 8 % 11/02/17 07:54 Monocytes % 2 % 11/02/17 07:54 Eosinophils % 4 % 11/02/17 07:54 Basophils % 0 % 11/02/17 07:54 Neutrophils # 11.8 k/uL (1.3-7.7) H 11/02/17 07:54 Lymphocytes # 1.1 k/uL (1.0-4.8) 11/02/17 07:54 Monocytes # 0.2 k/uL (0-1.0) 11/02/17 07:54 Eosinophils # 0.5 k/uL (0-0.7) 11/02/17 07:54 Basophils # 0.1 k/uL (0-0.2) 11/02/17 07:54 Hypochromasia Marked 11/02/17 07:54 Poikilocytosis Slight 11/02/17 07:54 Anisocytosis Slight 11/02/17 07:54 Macrocytosis Slight 11/02/17 07:54 PT 11.0 sec (9.0-12.0) 10/26/17 23:10 INR 1.1 (<1.2) 10/26/17 23:10 Sodium 146 mmol/L (137-145) H 11/02/17 07:54 Potassium 3.9 mmol/L (3.5-5.1) 11/02/17 07:54 Chloride 110 mmol/L (98-107) H 11/02/17 07:54 Carbon Dioxide 24 mmol/L (22-30) 11/02/17 07:54 Anion Gap 12 mmol/L 11/02/17 07:54 BUN 24 mg/dL (9-20) H 11/02/17 07:54 Creatinine 1.31 mg/dL (0.66-1.25) H 11/02/17 07:54 Est GFR (MDRD) Af Amer >60 (>60 ml/min/1.73 sqM) 11/02/17 07:54 Est GFR (MDRD) Non-Af 54 (>60 ml/min/1.73 sqM) 11/02/17 07:54 Glucose 114 mg/dL (74-99) H 11/02/17 07:54 POC Glucose (mg/dL) 118 mg/dL (75-99) H 11/02/17 20:26 POC Glu Chemical Technician ID Pallavi Sargent 11/02/17 20:[address] Glu mg/dL 128 10/27/17 07:58 Hemoglobin A1c 6.1 % (4.0-6.0) H 10/27/17 07:58 Plasma Lactic Acid Ron 1.0 mmol/L (0.7-2.0) 10/28/17 01:46 Calcium 8.6 mg/dL (8.4-10.2) 11/02/17 07:54 Magnesium 1.9 mg/dL (1.6-2.3) 10/26/17 23:10 Total Bilirubin 0.6 mg/dL (0.2-1.3) 10/26/17 23:10 AST 44 U/L (17-59) 10/26/17 23:10 ALT 21 U/L (21-72) 10/26/17 23:10 Alkaline Phosphatase 72 U/L (38-126) 10/26/17 23:10 Troponin I 0.248 ng/mL (0.000-0.034) H* 10/28/17 01:46 Total Protein 7.6 g/dL (6.3-8.2) 10/26/17 23:10 Albumin 4.1 g/dL (3.5-5.0) 10/26/17 23:10 TSH 1.550 mIU/L (0.465-4.680) 10/29/17 08:06 Urine Color Yellow 10/26/17 23:20 Urine Appearance Clear (Clear) 10/26/17 23:20 Urine pH 5.5 (5.0-8.0) 10/26/17 23:20 Ur Specific [place] 1.013 (1.001-1.035) 10/26/17 23:20 Urine Protein 1+ (Negative) H 10/26/17 23:20 Urine Glucose (UA) Negative (Negative) 10/26/17 23:20 Urine Ketones Negative (Negative) 10/26/17 23:20 Urine Blood Trace (Negative) H 10/26/17 23:20 Urine Nitrite Negative (Negative) 10/26/17 23:20 Urine Bilirubin Negative (Negative) 10/26/17 23:20 Urine Urobilinogen <2.0 mg/dL (<2.0) 10/26/17 23:20 Ur Leukocyte Esterase Small (Negative) H 10/26/17 23:20 Urine RBC 8 /hpf (0-5) H 10/26/17 23:20 Urine WBC 10 /hpf (0-5) H 10/26/17 23:20 Urine WBC Clumps Rare /hpf (None) H 10/26/17 23:20 Ur Squamous Epith Cells <1 /hpf (0-4) 10/26/17 23:20 Amorphous Sediment Rare /hpf (None) H 10/26/17 23:20 Urine Bacteria Rare /hpf (None) H 10/26/17 23:20 Hyaline Casts 3 /lpf (0-2) H 10/26/17 23:20 Urine Mucus Rare /hpf (None) H 10/26/17 23:20 Vancomycin Trough 31.3 ug/mL H* 10/30/17 05:16 Random Vancomycin 10.5 ug/mL 10/27/17 07:58 Influenza Type A RNA Not Detected (Not Detectd) 10/27/17 09:00 Influenza Type B (PCR) Not Detected (Not Detectd) 10/27/17 09:00 Microbiology 10/30/17 14:19 Blood Blood Culture - Preliminary No Growth after 72 hours 10/30/17 14:00 Blood Blood Culture - Preliminary No Growth after 72 hours 10/28/17 01:45 Blood Blood Culture - Preliminary No Growth after 120 hours 10/28/17 01:30 Blood Blood Culture - Preliminary No Growth after 120 hours 10/26/17 23:10 Blood Blood Culture - Final No Growth after 144 hours 10/26/17 13:00 Buttock Gram Stain - Final 10/26/17 13:00 Buttock Wound Culture - Final Pseudomonas aeruginosa Sonal albicans 10/26/17 23:20 Urine,Catheterized Urine Culture - Final Assessment and Plan Assessment: 66-year-old male is a very poor historian. As noted he is on 11 L of nasal cannula and has somewhat of a poor mentation. Stated influenza has come back as negative. It is likely the patient has aspiration pneumonia and with his care and ECF alter Zosyn to meropenem with concerns to more resistant pathogens and vancomycin also continues for now. Continue supportive care and respiratory treatments. Zinc will be utilized to the pressure ulcerations of the buttocks noted at admission 10/29/2017 patient remains with high-grade fever. Repeat cultures have been requested. He is on antibiotic therapy including Merrem which will be providing adequate coverage for the pseudomonas aeruginosa isolated from his urine as well as aspiration pneumonia. Chest x-ray continues to show evidence of the right lower lobe infiltrate. A few doses of ibuprofen have been used to try to improve his fever, aware that he has in Eliquis. The chemical pneumonitis from the aspiration likely having ongoing fever. We' ll add antifungal therapy given the ongoing fever and isolation of Sonal from the ulcer. On 11/02/2017 patient has further improvement. Oxygen requirements have decreased. Fever has improved. Once he is improved amounts of oxygen we will transfer back to the extended care facility.
[2017-11-03 01:20] VITALS: RESP 20
[2017-11-03] MEDS ORDERED: VANCOMYCIN TROUGH DUE 1 EACH MISC MISCELLANE ONE (05:00)
[2017-11-03 05:44] LABS: Anion Gap 11 mmol/L; Blood Urea Nitrogen 22 mg/dL (9-20); Calcium 8.7 mg/dL (8.4-10.2); Carbon Dioxide 25 mmol/L (22-30); Chloride 108 mmol/L (98-107); Glucose 134 mg/dL (74-99); Potassium 3.8 mmol/L (3.5-5.1); Sodium 144 mmol/L (137-145)
[2017-11-03] MEDS: LEVOTHYROXINE 125 MCG TAB PO SCH (06:53)
[2017-11-03] MEDS: GABAPENTIN 300 MG CAP PO SCH ×2 (06:54→13:04)
[2017-11-03] MEDS: VANCOMYCIN 1,750 MG in SODIUM CHLORIDE 0.9% 250 ML IVPB SCH (06:54)
[2017-11-03] MEDS: IPRATROPIUM-ALBUTEROL 3 ML NEB INHALATION SCH ×4 (07:24→20:00)
[2017-11-03] MEDS: FORMOTEROL FUMARATE 20 MCG/2 ML NEBU INHALATION SCH ×2 (07:24→20:20)
[2017-11-03] MEDS: BUDESONIDE 1 MG/2 ML NEBU INHALATION SCH ×2 (07:24→20:00)
[2017-11-03] MEDS: INSULIN ASPART 100 UNIT/ML 1 ML 10 ML VIAL SQ SCH ×3 (07:40→17:51)
[2017-11-03 07:45] LABS: Glucose,Whole Blood 127 mg/dL (75-99)
[2017-11-03] MEDS: INSULIN DETEMIR 100 UNIT/ML 10 ML VIAL SQ SCH (08:59)
[2017-11-03] MEDS: METOPROLOL TARTRATE 12.5 MG TAB PO SCH (09:00)
[2017-11-03] MEDS: APIXABAN 5 MG TAB PO SCH (09:00)
[2017-11-03] MEDS: MEROPENEM 1 GM in SODIUM CHLORIDE 0.9% 100 ML IVPB SCH (09:01)
[2017-11-03] MEDS: PANTOPRAZOLE 40 MG TABLET PO SCH (09:01)
--- NOTE | 2017-11-03 11:27 | CDI ---
Last Revision, August 2017 Documentation Clarification Form Date: 11/03/2017 11:17:00 AM From: Yumiko [email or web address], CCDS Admit Date: 10/26/2017 8:19:00 PM Patient Name: Master Rangel Visit Number: [id number] Discharge Date: ATTENTION: The Clinical Documentation Specialists (CDI) and [facility] Coding Staff appreciate your assistance in clarifying documentation. Please respond to the clarification below the line at the bottom and electronically sign. The CDI & [facility] Coding staff will review the response and follow-up if needed. Please note: Queries are made part of the Legal Health Record. If you have any questions, please contact the author of this message via ITS. Dr. Hi Morales: Per the History & Physical: "Fever with possibly urinary tract infection with sepsis related to indwelling Rothman catheter present on admission." History/Risk factors: Neurogenic Bladder with chronic indwelling Rothman catheter , MRSA, resides in halfway. Clinical Indicators: Urinalysis: Clear, 1+ prot, tr blood, sm esterase, WBC 10. Lab results: WBC (9.8), 14.8^, 15.9^. Treatment: IV abtibiotics: Zosyn & Vanco, IV Meropenem added. Urine culture: neg @ 18 hrs. Blood & wound cultures (Stage III decubitus sacral ulcer & unstageable buttock ulcers). In your professional opinion, can you please clarify the etiology of the UTI, if known? Rothman catheter UTI not related to catheter Other condition, please specify Unable to determine If an infective organism is present, please specify cause and effect relationship if applicable. Please continue to document in your progress notes and discharge summary in order to capture severity of illness and risk of mortality. Include clinical findings that support your diagnosis. Rothman catheter MTDD
[2017-11-03 12:25] LABS: Glucose,Whole Blood 131 mg/dL (75-99)
[2017-11-03] MEDS ORDERED: MENTHOL-ZINC OXIDE OINT 113 GM TUBE TOPICAL SCH (13:15)
--- NOTE | 2017-11-03 13:53 | P.DS ---
Providers Date of admission: 10/26/17 20:19 Expected date of discharge: 11/03/17 Attending physician: Jose Morales Consults: 10/26/17 21:25 Consult Physician Routine Consulting Provider: Yang Redman Consult Reason/Comments: hypoxia Do you want consulting provider notified?: Yes Consult Physician Routine Consulting Provider: Marciano Bermudez Consult Reason/Comments: sepsis Do you want consulting provider notified?: Yes 10/27/17 12:08 Consult Physician Urgent Consulting Provider: Lilibeth Stacy Consult Reason/Comments: [id number] Do you want consulting provider notified?: Already Contacted Primary care physician: Stated None Hospital Course: Final Diagnoses: Sepsis secondary to acute urinary tract infection and pneumonia Possible aspiration pneumonia Acute on chronic hypoxic respiratory failure due to suspected aspiration pneumonia and multifactorial requiring high flow oxygen currently Acute kidney injury secondary to sepsis Hypernatremia due to poor oral intake. Able to tolerate oral diet now. Multiple sclerosis and gait dysfunction Hypertension Degenerative joint disease Hypothyroidism Neurogenic bladder Sacral decub ulcer stage III with wound cultures showing gram negative bacilli- Pseudomonas and mark Diabetes type 2 History of bowel resection and colostomy Poor functional status New-onset A. fib with controlled ventricular rate, initiated on Eliquis. Hospital course:This is a 66-year-old white male patient with a past medical history of multiple sclerosis, diabetes mellitus, hypertension, healing stage III sacrum ulcer, neurogenic bladder with chronic indwelling catheter, hypothyroidism, osteoarthritis, who resides at the [facility] , was brought to the [facility] on 10/26/2017 with complaints of fever, suspected aspiration pneumonia, and hypoxemia a pulse ox in the 70s at the ECF. Evaluated by cardiology, pulmonary, infectious disease. Sacral wound cultures reported gram-negative bacilli-Pseudomonas and Mark. Maintained on specialty bed. New-onset A. fib, initiated on Eliquis as per cardiology. Oxygen has been weaned down to high flow 6 L nasal cannula, maintaining O2 sats of 96%. Cleared by all consults for discharge. Patient is being discharged to [facility] in a stable condition with guarded prognosis. Physical exam:VSS,Patient is sitting up in the bed comfortably, no acute distress,alert to person only, pleasantly confused.CHEST EXAMINATION: Trachea is central. Symmetrical expansion. Bilateral air entry diminished bibasally.CARDIAC: Normal S1, S2 with no gallops. No murmurs ABDOMEN: Soft. Obese Bowel sounds normal. Extremities: 2+ edema.Neurologically: No focal deficits noted.Skin: bilateral coccyx/buttocks reddened, macerated with skin tears. The impression and plan of care has been dictated as directed. : I performed a history and examination of this patient, discussed the same with the dictator. I agree with the dictator's note ,documented as a scribe. Any additional findings or plans will be noted. Time taken: 35 minutes Patient Condition at Discharge: Stable Plan - Discharge Summary New Discharge Prescriptions: New Ciprofloxacin HCl [Cipro] 500 mg PO Q12HR #14 tablet Fluconazole [Diflucan] 100 mg PO DAILY #7 tab Apixaban [Eliquis] 5 mg PO BID tab Budesonide [Pulmicort] 1 mg INHALATION RT-BID nebu Escitalopram [Lexapro] 30 mg PO HS@2000 tab Formoterol Fumarate [Perforomist] 20 mcg INHALATION RT-BID nebu Insulin Detemir [Levemir] 30 unit SQ DAILY syr Ipratropium-Albuterol Nebulize [Duoneb 0.5 mg-3 mg/3 ml Soln] 3 ml INHALATION Q4H PRN ampul.neb PRN Reason: Shortness Of Breath Or Wheezing Ipratropium-Albuterol Nebulize [Duoneb 0.5 mg-3 mg/3 ml Soln] 3 ml INHALATION RT-QID ampul.neb Melatonin 3 mg PO HS PRN tablet PRN Reason: Insomnia Menthol-Zinc Oxide Oint [Risamine Oint] 1 applic TOPICAL BID applic Metoprolol Tartrate [Lopressor] 12.5 mg PO BID tab Pantoprazole [Protonix] 40 mg PO AC-BRKFST tablet. INSULIN LISPRO (HumaLOG) [humaLOG] 0 unit SQ ACHS #1 vial Continue Gabapentin [Neurontin] 600 mg PO TID@0500,1300,2100 Cranberry-Vitamin C-Inulin 30 ml PO BID@0700,1700 Polyethylene Glycol 3350 [Miralax] 17 gm PO DAILY PRN PRN Reason: Constipation Acetaminophen [Tylenol] 650 mg PO Q4H PRN PRN Reason: Fever And/ Or Pain Levothyroxine Sodium [Synthroid] 50 mcg PO DAILY@0500 Discontinued Baclofen [Lioresal] 20 mg PO TID@0500,1300,2100 metFORMIN HCL 1,000 mg PO BID@0900,2100 INSULIN LISPRO (HumaLOG) [humaLOG] 20 units SQ BID@1200,1700 Escitalopram [Lexapro] 10 mg PO HS@2000 Albuterol Nebulized [Ventolin Nebulized] 2.5 mg INHALATION RT-Q4H PRN PRN Reason: Shortness Of Breath Insulin Glargine [Lantus] 30 unit SQ BID@0900,2100 Bumetanide [Bumex] 1 mg PO BID@0500,1200 Ibuprofen 600 mg PO TID No Action Levothyroxine Sodium [Synthroid] 200 mcg PO DAILY@0500 Discharge Medication List Gabapentin [Neurontin] 600 mg PO TID@0500,1300,2100 08/24/14 [History] Levothyroxine Sodium [Synthroid] 200 mcg PO DAILY@0500 08/24/14 [History] Acetaminophen [Tylenol] 650 mg PO Q4H PRN 10/26/17 [History] Cranberry-Vitamin C-Inulin 30 ml PO BID@0700,1700 10/26/17 [History] Levothyroxine Sodium [Synthroid] 50 mcg PO DAILY@0500 10/26/17 [History] Polyethylene Glycol 3350 [Miralax] 17 gm PO DAILY PRN 10/26/17 [History] Apixaban [Eliquis] 5 mg PO BID tab 11/03/17 [Rx] Budesonide [Pulmicort] 1 mg INHALATION RT-BID nebu 11/03/17 [Rx] Ciprofloxacin HCl [Cipro] 500 mg PO Q12HR #14 tablet 11/03/17 [Rx] Escitalopram [Lexapro] 30 mg PO HS@1999 tab 11/03/17 [Rx] Fluconazole [Diflucan] 100 mg PO DAILY #7 tab 11/03/17 [Rx] Formoterol Fumarate [Perforomist] 20 mcg INHALATION RT-BID nebu 11/03/17 [Rx] INSULIN LISPRO (HumaLOG) [humaLOG] 0 unit SQ ACHS #1 vial 11/03/17 [Rx] Insulin Detemir [Levemir] 30 unit SQ DAILY syr 11/03/17 [Rx] Ipratropium-Albuterol Nebulize [Duoneb 0.5 mg-3 mg/3 ml Soln] 3 ml INHALATION Q4H PRN ampul.neb 11/03/17 [Rx] Ipratropium-Albuterol Nebulize [Duoneb 0.5 mg-3 mg/3 ml Soln] 3 ml INHALATION RT -QID ampul.neb 11/03/17 [Rx] Melatonin 3 mg PO HS PRN tablet 11/03/17 [Rx] Menthol-Zinc Oxide Oint [Risamine Oint] 1 applic TOPICAL BID applic 11/03/17 [ Rx] Metoprolol Tartrate [Lopressor] 12.5 mg PO BID tab 11/03/17 [Rx] Pantoprazole [Protonix] 40 mg PO AC-BRKFST tablet. 11/03/17 [Rx] Follow up Appointment(s)/Referral(s): Arturo Orosco MD [REFERRING] - 3 Days (While at [facility]) Marciano Bermudez MD [STAFF PHYSICIAN] - 2 Weeks Patient Instructions/Handouts: Urinary Tract Infection in Men (DC), Type 2 Diabetes in Adults (DC) Activity/Diet/Wound Care/Special Instructions: [facility] Diuretics currently on hold,R/T renal fx, re-eval at [facility] with Dr. Orosco . Cardiac diet.Consist. carb.Asp. prec. Assist with meals, hob elevated at all times with meals. Continue to put Risamine cream on bottom, turn q2, non-adherant pads to bleeding areas to left buttock cbc,bmp in 3 days 6l hi flow nC Discharge Disposition: TRANSFER TO SNF/ECF
[2017-11-03] MEDS: DEXTROSE 5% IN WATER 1,000 ML IV SCH (14:21)
[2017-11-03 16:00] VITALS: BP 121/66; TEMP 99.1
[2017-11-03 17:31] LABS: Glucose,Whole Blood 120 mg/dL (75-99)
[2017-11-03 20:43] VITALS: PULSE 78
--- NOTE | 2017-11-03 21:47 | P.PN ---
Subjective Progress Note Date: 11/03/17 Principal diagnosis: Fever This is a 66-year-old male who resides at [facility], history of MS with chronic Rothman catheter and colostomy. On October 25, patient was found with vomitus all over him and pulse ox was in the 70s at the ECF. Patient does have chronic hypoxic respiratory failure on O2 at 3 L nasal cannula. Patient was then taken to [facility] where he was evaluated and found to have temperature of 102 with leukocytosis of 15. Patient was started on Zosyn and then changed to cefepime, clindamycin and vancomycin. Chest x-ray initially showed clear of consolidation but repeat on October 26 showed suspicious small effusion and pulmonary venous congestion. Urinalysis was cloudy, blood 3+, protein 2+, nitrate positive, leukoesterase 2+ , WBC 5200, RBCs 20-30 and bacteria 4+. BUN was 58 and creatinine 2.5 with baseline creatinine of 1.2-1.5. Abdominal x-ray was normal and showed possible left renal calculi. Troponins were 0.045, 0.055 and 0.071. Patient was diagnosed with aspiration pneumonia, UTI, acute kidney injury and possible non- ST elevated myocardial infarction. Patient was then transferred to [facility]. He has had a temperature maximum 102.3 white count is improved at 9.8 as well as renal function has improved. Repeat chest x-ray shows cardiomegaly. No heart failure. No change from previous. Patient is currently on Zosyn and vancomycin. Blood culture urine culture are status received. Patient also presented with unstageable pressure injury to the bilateral buttocks. Wound cultures have been obtained. Noted the patient has not been tested for influenza. Patient has difficulty communicating due to MS and is a poor historian. He currently denies any shortness of breath but he is on high flow nasal cannula and 11 L pulse ox 93%. On 10/29/2017 patient remains ill remains on high flow oxygen 15 L. He relates he still feels poorly, not much cough. Wound to his buttocks or not very painful that he is just not feeling well. 10/30/2017 patient remains on 11 L of oxygen, seems to be less short of breath than yesterday, continues to have some intermittent fever but is showing some improvement. No new lesions are noted. On 11/02/2017 the patient is down to 8 L of oxygen at high flow. Patient relates is less short of breath. 11/03/2017 patient is feeling better. His oxygen is down to 4 L at times with no significant shortness of breath at this time. He denying much cough or sputum production. Denies abdominal pain. Remains without fever. Objective - Vital Signs Vital signs: Vital Signs Temp 99.1 F 11/03/17 15:00 Pulse 78 11/03/17 20:43 Resp 20 11/03/17 16:00 BP 121/66 11/03/17 15:00 Pulse Ox 100 11/03/17 15:00 Intake & Output 11/03/17 11/03/17 11/04/17 06:59 18:59 06:59 Intake Total 775 720 Output Total 1000 1400 Balance -225 -680 Weight 122 kg Intake: Oral 775 720 Output: Urine 1000 1400 Stool 0 Other: Voiding Method Indwelling Catheter Indwelling Catheter # Bowel Movements 0 - Exam Gen: This is a morbidly obese 66-year-old male. He is sitting up in bed and appears to be comfortable. He does not appear to be in acute respiratory distress. HEENT: Head is atraumatic, normocephalic. Pupils equal, round. Sclerae is anicteric. Patient is edentulous. NECK: Thick and short. No JVD. No lymphadenopathy. No thyromegaly. LUNGS: Diminished to the bilateral bases. No wheezes or rhonchi. No intercostal retractions. Does have crackles to the right base HEART: Irregular rate and rhythm. No murmur. ABDOMEN: Soft. Bowel sounds are present. No masses. No tenderness. Colostomy to the left lower quadrant with beefy center. Formed stool and gas present in colostomy bag. SKIN: Patient has redness to the bilateral forearms to his elbows with no open weeping or wounds. There is redness from the bilateral buttocks including the sacrum with open skin tears. EXTREMITIES: 1+ pedal edema. No calf tenderness. Dorsalis pedis palpable bilaterally. NEUROLOGICAL: Patient is awake, alert and oriented x2 and poor historian. Extreme weakness to the bilateral upper and lower extremities. - Labs CBC & Chem 7: 11/02/17 07:54 11/03/17 04:31 Labs: Abnormal Lab Results - Last 24 Hours (Table) 11/03/17 11/03/17 11/03/17 Range/Units 04:31 07:29 12:07 Chloride 108 H (98-107) mmol/L BUN 22 H (9-20) mg/dL Creatinine 1.40 H (0.66-1.25) mg/dL Glucose 134 H (74-99) mg/dL POC Glucose (mg/dL) 127 H 131 H (75-99) mg/dL 11/03/17 Range/Units 17:25 Chloride (98-107) mmol/L BUN (9-20) mg/dL Creatinine (0.66-1.25) mg/dL Glucose (74-99) mg/dL POC Glucose (mg/dL) 120 H (75-99) mg/dL Microbiology - Last 24 Hours (Table) 10/30/17 14:19 Blood Culture - Preliminary Blood No Growth after 96 hours 10/30/17 14:00 Blood Culture - Preliminary Blood No Growth after 96 hours 10/28/17 01:45 Blood Culture - Final Blood No Growth after 144 hours 10/28/17 01:30 Blood Culture - Final Blood No Growth after 144 hours Laboratory Results WBC 14.0 k/uL (3.8-10.6) H 11/02/17 07:54 RBC 2.71 m/uL (4.30-5.90) L 11/02/17 07:54 Hgb 7.8 gm/dL (13.0-17.5) L 11/02/17 07:54 Hct 25.8 % (39.0-53.0) L 11/02/17 07:54 MCV 95.2 fL (80.0-100.0) 11/02/17 07:54 MCH 28.8 pg (25.0-35.0) 11/02/17 07:54 MCHC 30.3 g/dL (31.0-37.0) L 11/02/17 07:54 RDW 19.0 % (11.5-15.5) H 11/02/17 07:54 Plt Count 222 k/uL (150-450) 11/02/17 07:54 Neutrophils % 85 % 11/02/17 07:54 Lymphocytes % 8 % 11/02/17 07:54 Monocytes % 2 % 11/02/17 07:54 Eosinophils % 4 % 11/02/17 07:54 Basophils % 0 % 11/02/17 07:54 Neutrophils # 11.8 k/uL (1.3-7.7) H 11/02/17 07:54 Lymphocytes # 1.1 k/uL (1.0-4.8) 11/02/17 07:54 Monocytes # 0.2 k/uL (0-1.0) 11/02/17 07:54 Eosinophils # 0.5 k/uL (0-0.7) 11/02/17 07:54 Basophils # 0.1 k/uL (0-0.2) 11/02/17 07:54 Hypochromasia Marked 11/02/17 07:54 Poikilocytosis Slight 11/02/17 07:54 Anisocytosis Slight 11/02/17 07:54 Macrocytosis Slight 11/02/17 07:54 PT 11.0 sec (9.0-12.0) 10/26/17 23:10 INR 1.1 (<1.2) 10/26/17 23:10 Sodium 144 mmol/L (137-145) 11/03/17 04:31 Potassium 3.8 mmol/L (3.5-5.1) 11/03/17 04:31 Chloride 108 mmol/L (98-107) H 11/03/17 04:31 Carbon Dioxide 25 mmol/L (22-30) 11/03/17 04:31 Anion Gap 11 mmol/L 11/03/17 04:31 BUN 22 mg/dL (9-20) H 11/03/17 04:31 Creatinine 1.40 mg/dL (0.66-1.25) H 11/03/17 04:31 Est GFR (MDRD) Af Amer >60 (>60 ml/min/1.73 sqM) 11/03/17 04:31 Est GFR (MDRD) Non-Af 50 (>60 ml/min/1.73 sqM) 11/03/17 04:31 Glucose 134 mg/dL (74-99) H 11/03/17 04:31 POC Glucose (mg/dL) 120 mg/dL (75-99) H 11/03/17 17:25 POC Glu [employer] ID Niecy Valdez 11/03/17 17:[address] Glu mg/dL 128 10/27/17 07:58 Hemoglobin A1c 6.1 % (4.0-6.0) H 10/27/17 07:58 Plasma Lactic Acid Ron 1.0 mmol/L (0.7-2.0) 10/28/17 01:46 Calcium 8.7 mg/dL (8.4-10.2) 11/03/17 04:31 Magnesium 1.9 mg/dL (1.6-2.3) 10/26/17 23:10 Total Bilirubin 0.6 mg/dL (0.2-1.3) 10/26/17 23:10 AST 44 U/L (17-59) 10/26/17 23:10 ALT 21 U/L (21-72) 10/26/17 23:10 Alkaline Phosphatase 72 U/L (38-126) 10/26/17 23:10 Troponin I 0.248 ng/mL (0.000-0.034) H* 10/28/17 01:46 Total Protein 7.6 g/dL (6.3-8.2) 10/26/17 23:10 Albumin 4.1 g/dL (3.5-5.0) 10/26/17 23:10 TSH 1.550 mIU/L (0.465-4.680) 10/29/17 08:06 Urine Color Yellow 10/26/17 23:20 Urine Appearance Clear (Clear) 10/26/17 23:20 Urine pH 5.5 (5.0-8.0) 10/26/17 23:20 Ur Specific [place] 1.013 (1.001-1.035) 10/26/17 23:20 Urine Protein 1+ (Negative) H 10/26/17 23:20 Urine Glucose (UA) Negative (Negative) 10/26/17 23:20 Urine Ketones Negative (Negative) 10/26/17 23:20 Urine Blood Trace (Negative) H 10/26/17 23:20 Urine Nitrite Negative (Negative) 10/26/17 23:20 Urine Bilirubin Negative (Negative) 10/26/17 23:20 Urine Urobilinogen <2.0 mg/dL (<2.0) 10/26/17 23:20 Ur Leukocyte Esterase Small (Negative) H 10/26/17 23:20 Urine RBC 8 /hpf (0-5) H 10/26/17 23:20 Urine WBC 10 /hpf (0-5) H 10/26/17 23:20 Urine WBC Clumps Rare /hpf (None) H 10/26/17 23:20 Ur Squamous Epith Cells <1 /hpf (0-4) 10/26/17 23:20 Amorphous Sediment Rare /hpf (None) H 10/26/17 23:20 Urine Bacteria Rare /hpf (None) H 10/26/17 23:20 Hyaline Casts 3 /lpf (0-2) H 10/26/17 23:20 Urine Mucus Rare /hpf (None) H 10/26/17 23:20 Vancomycin Trough 26.7 ug/mL 11/03/17 04:31 Random Vancomycin 10.5 ug/mL 10/27/17 07:58 Influenza Type A RNA Not Detected (Not Detectd) 10/27/17 09:00 Influenza Type B (PCR) Not Detected (Not Detectd) 10/27/17 09:00 Microbiology 10/30/17 14:19 Blood Blood Culture - Preliminary No Growth after 96 hours 10/30/17 14:00 Blood Blood Culture - Preliminary No Growth after 96 hours 10/28/17 01:45 Blood Blood Culture - Final No Growth after 144 hours 10/28/17 01:30 Blood Blood Culture - Final No Growth after 144 hours 10/26/17 23:10 Blood Blood Culture - Final No Growth after 144 hours 10/26/17 13:00 Buttock Gram Stain - Final 10/26/17 13:00 Buttock Wound Culture - Final Pseudomonas aeruginosa Sonal albicans 10/26/17 23:20 Urine,Catheterized Urine Culture - Final Assessment and Plan Assessment: 66-year-old male is a very poor historian. As noted he is on 11 L of nasal cannula and has somewhat of a poor mentation. Stated influenza has come back as negative. It is likely the patient has aspiration pneumonia and with his care and ECF alter Zosyn to meropenem with concerns to more resistant pathogens and vancomycin also continues for now. Continue supportive care and respiratory treatments. Zinc will be utilized to the pressure ulcerations of the buttocks noted at admission 10/29/2017 patient remains with high-grade fever. Repeat cultures have been requested. He is on antibiotic therapy including Merrem which will be providing adequate coverage for the pseudomonas aeruginosa isolated from his urine as well as aspiration pneumonia. Chest x-ray continues to show evidence of the right lower lobe infiltrate. A few doses of ibuprofen have been used to try to improve his fever, aware that he has in Eliquis. The chemical pneumonitis from the aspiration likely having ongoing fever. We' ll add antifungal therapy given the ongoing fever and isolation of Sonal from the ulcer. On 11/02/2017 patient has further improvement. Oxygen requirements have decreased. Fever has improved. Once he is improved amounts of oxygen we will transfer back to the extended care facility. 11/03/2017 patient has further improvement oxygen requirements are decreasing. Remains afebrile. Will be transferred back to extended care facility today with antibiotic therapy with ciprofloxacin 500 mg every 12 hours and fluconazole 100 mg orally each day both for one week.
[2017-11-04] MEDS ORDERED: VANCOMYCIN 2,000 MG in SODIUM CHLORIDE 0.9% 500 ML IVPB SCH (08:00)
== END 2017-11-03 21:36 | DRG 698 ==
LOC: 5MS5E 20:19 → 4MS4W 10-27 17:51
PROVIDERS: ADMIT Hospitalist; ATTEND Hospitalist
DX: T83.511A Infection and inflammatory reaction due to indwelling urethral catheter, initial encounter (principal); A41.9 Sepsis, unspecified organism; J96.21 Acute and chronic respiratory failure with hypoxia; J69.0 Pneumonitis due to inhalation of food and vomit; N17.9 Acute kidney failure, unspecified; L89.309 Pressure ulcer of unspecified buttock, unspecified stage; L89.153 Pressure ulcer of sacral region, stage 3; E87.0 Hyperosmolality and hypernatremia; E66.2 Morbid (severe) obesity with alveolar hypoventilation; N39.0 Urinary tract infection, site not specified; G35 Multiple sclerosis; I48.0 Paroxysmal atrial fibrillation; E03.9 Hypothyroidism, unspecified; N31.9 Neuromuscular dysfunction of bladder, unspecified; F41.9 Anxiety disorder, unspecified; M19.90 Unspecified osteoarthritis, unspecified site; B96.5 Pseudomonas (aeruginosa) (mallei) (pseudomallei) as the cause of diseases classified elsewhere; I44.0 Atrioventricular block, first degree; I49.1 Atrial premature depolarization; E11.42 Type 2 diabetes mellitus with diabetic polyneuropathy; I50.9 Heart failure, unspecified; I11.0 Hypertensive heart disease with heart failure; M79.89 Other specified soft tissue disorders; R26.9 Unspecified abnormalities of gait and mobility; F32.9 Major depressive disorder, single episode, unspecified; Z79.82 Long term (current) use of aspirin; Z79.4 Long term (current) use of insulin; Z79.899 Other long term (current) drug therapy; Z88.8 Allergy status to other drugs, medicaments and biological substances; Z87.891 Personal history of nicotine dependence; Z83.3 Family history of diabetes mellitus; Z86.14 Personal history of Methicillin resistant Staphylococcus aureus infection; Z90.49 Acquired absence of other specified parts of digestive tract; Z93.3 Colostomy status; Z99.81 Dependence on supplemental oxygen; Z79.1 Long term (current) use of non-steroidal anti-inflammatories (NSAID); Z68.38 Body mass index [BMI] 38.0-38.9, adult; Z80.8 Family history of malignant neoplasm of other organs or systems
CPT/HCPCS: 71045; 74230; 80048; 80053; 80202; 81001; 83036; 83605; 83735; 84443; 84484; 85025; 85610; 87040; 87070; 87077; 87086; 87186; 87205; 87502; 93005; 94640; 94760